=== PATIENT | female | born 1985 | race Caucasian/White ===

== ENCOUNTER 2018-07-14 22:29 | Emergency (ER) | payer MEDICAID, SELFPAY ==
[2018-07-14 22:36] VITALS: BP 140/68; PULSE 74; RESP 18; TEMP 36.4; O2SAT 99
[2018-07-14] MEDS: Acetaminophen 500 MG TAB 1000 MG PO (22:54)
[2018-07-14] MEDS: Ketorolac 30 MG/ML VIAL IM (22:54)
[2018-07-14] MEDS: Lidocaine 5% Patch 1 PATCH TP (22:55)
--- NOTE | 2018-07-14 23:15 | DI.RAD_ITS ---
SYMPTOM/DIAGNOSIS: LT SACRUM PAIN, S/P FALL BILATERAL HIPS AND PELVIS: Five views were obtained. There is partial sacralization of the lowest lumbar vertebra. SI joints appear fairly well maintained. No evidence of acute fracture involving the hips or pelvis.
--- NOTE | 2018-07-14 23:46 | DI.VRAD_ITS ---
EXAM: XR Left Hip With Pelvis When Performed, 2 or 3 Views CLINICAL HISTORY: 32 years old, female; Injury or trauma; Fall; Initial encounter; Blunt trauma (contusions or hematomas); Bilateral; Hip; Injury date: 07/12/18; Injury details: Fall with sacrum and posterior bilat hip pain TECHNIQUE: Two or three views of the left hip, with pelvis when performed. COMPARISON: US PELVIS TRANSVAG 06/19/2015 9:26 PM FINDINGS: Bones/joints: No focal pathology. No acute fracture. No dislocation. Soft tissues: Unremarkable. IMPRESSION: No acute bony pathology. Dictated and Authenticated by: Lexy Harris MD. Ordering:JUANA DOMINGUEZ MD
--- NOTE | 2018-07-15 00:03 | ED.GENADUL_ITS ---
Discharge Plan Disposition Patient Disposition: HOME Condition: Good Discharge Details Chief Complaint: Nk/Back Pain Clinical Impression: Coccyx contusion, Contusion Primary Care Provider: Deanna Jones ED Provider: Javon Stringer Home Meds and New Rx's Prescriptions: New acetaminophen [Mapap Extra Strength] 500 MG tablet 1,000 mg PO Q6H 5 Days Qty: 60 RF: 0 lidocaine [Lidoderm] 1 PATCH patch 1 ea Topical Q24H Qty: 4 RF: 0 ibuprofen [Motrin IB] 200 MG tablet 800 mg PO Q6H 5 Days Qty: 80 RF: 0 No Action ibuprofen 800 MG tablet 800 mg PO PRN RF: 0 albuterol sulfate 8.5 GM HFA aerosol inhaler 1 - 2 puff Inhalation Q4H PRN RF: 0 fluticasone [Flovent HFA] 12 GM HFA aerosol inhaler 12 gm Inhalation PRN RF: 0 budesonide-formoterol [Symbicort] 10.2 GM HFA aerosol inhaler 2 puff Inhalation BID RF: 0 levothyroxine 175 MCG tablet 175 mcg PO DAILY Qty: 90 RF: 1 quetiapine [Seroquel] 100 MG tablet 100 mg PO DIRECTED RF: 0 citalopram [Celexa] 20 MG tablet 40 mg PO DAILY RF: 0 fluticasone 16 GM spray,suspension 2 spry NS DAILY Qty: 1 RF: 0 ibuprofen 400 MG tablet 400 mg PO Q6H Qty: 15 RF: 0 omeprazole magnesium [Prilosec OTC] 20 mg Tablet,Delayed Release (Dr/Ec) RF: 0 Discharge Instructions Instructions: Contusion in Adults (ED) Additional Instructions: Please take medication as directed. Please use ice as often as possible on your buttock. If you notice any worsening of your symptoms, or any new symptoms such as vomiting, diarrhea, fever, chills, shortness of breath, chest pain, numbness in your groin, or any inability to control your bowels or bladder ,, weakness, or fainting , please return immediately to the emergency department for reevaluation. Please follow up with your primary care provider as soon as possible for reassessment and reevaluation. As always, it was a pleasure participating in your medical care today. Referrals: Deanna Jones [Primary Care Provider] - Medical Decision Making This is a pleasant 32-year-old female who presents for pain on her buttock after falling on a flight of stairs hitting her buttock. She did not hit her head, lose consciousness, or of any other pain or trauma. She has no pain on her entire exam except for over her left buttock. There is a notable bruise on that area. She shows no midline tenderness of her lumbar or thoracic spine. No saddle anesthesia, no historical component of bowel or bladder incontinence. test was negative, x-ray demonstrates no acute bony pathology. She has had notable improvement with NSAIDs, and the Lidoderm patch. With no red flags on physical exam, history, or signs of fracture, I feel that she can be safely discharged home. We discussed red flags which to return. Diagnosis bruise coccyx and hip. I have extensively reviewed the treatment plan and discharge instructions with the patient. I have addressed all patient concerns at this time. The patient was made aware of what symptoms to monitor for that would warrant a return to the emergency department. Discussed the plan with the patient, they demonstrate verbal understanding and agreement with our assessment and plan at this time. HPI General Date/Time Provider Initiated Documentation: 07/14/18 22:39 . HPI Narrative: This is a 32-year-old female with a past medical history of C-sections, and asthma who presents for buttock pain. She states that 24-48 hours ago she was walking down a flight of stairs and she slipped and landed on her buttock. She developed a bruise over her left hip and buttock, waist and has had notable pain whenever she sits since then. It is worsened with movement and sitting. It is relieved by nothing. She did take some ibuprofen and states that it feels slightly better with this she denies any associated numbness, tingling, weakness, bowel or bladder incontinence, vomiting, or diarrhea. She is not on any blood thinners. She denies any other complaints at this time. She denies any pertinent family history, IV or illicit drug use. Related Data Home Medications Medication Instructions Recorded Confirmed albuterol sulfate 1 - 2 puff INHALATION Q4H PRN 02/05/14 04/13/18 inhaler fluticasone [Flovent HFA] 12 gm INHALATION PRN inhaler 02/05/14 07/14/18 ibuprofen 800 mg PO PRN 02/05/14 07/14/18 quetiapine [Seroquel] 100 mg PO DIRECTED 12/22/14 07/14/18 citalopram [Celexa] 40 mg PO DAILY 04/05/15 07/14/18 budesonide-formoterol [Symbicort] 2 puff INHALATION BID inhaler 08/05/15 levothyroxine 175 mcg PO DAILY #90 tab-cap 12/16/17 07/14/18 fluticasone 2 spry NS DAILY #1 btl 04/13/18 07/14/18 ibuprofen 400 mg PO Q6H #15 tablet 04/13/18 07/14/18 acetaminophen [Mapap Extra 1,000 mg PO Q6H 5 Days #60 tab 07/14/18 Strength] ibuprofen [Motrin Ib] 800 mg PO Q6H 5 Days #80 tab 07/14/18 lidocaine [Lidoderm] 1 ea TOPICAL Q24H #4 patch 07/14/18 omeprazole magnesium [Prilosec OTC] 07/14/18 Previous Rx's Medication Instructions Recorded levothyroxine 175 mcg PO DAILY #90 tab-cap 12/16/17 fluticasone 2 spry NS DAILY #1 btl 04/13/18 ibuprofen 400 mg PO Q6H #15 tablet 04/13/18 acetaminophen [Mapap Extra 1,000 mg PO Q6H 5 Days #60 tab 07/14/18 Strength] ibuprofen [Motrin Ib] 800 mg PO Q6H 5 Days #80 tab 07/14/18 lidocaine [Lidoderm] 1 ea TOPICAL Q24H #4 patch 07/14/18 Allergies Allergy/AdvReac Type Severity Reaction Status Date / Time bupropion HCl Allergy Mild Skin Rash Unverified 07/14/18 22:43 [From Wellbutrin] gabapentin Allergy Skin Rash Unverified 07/14/18 22:43 Animal Dander Allergy Intermediate Runny Uncoded 07/14/18 22:43 nose, itchy eyes H1N1 vaccine Allergy Intermediate Hives Uncoded 07/14/18 22:43 General Stated Complaint: Nk/Back Pain AIDAN: 4 Review of Systems Review of Systems All systems reviewed & are unremarkable except as noted in HPI and below PFSH Family History Mother No problems noted. Father No problems noted. Brother No problems noted. Medical History Asthma Depression Hypothyroid Obesity, Class III, BMI 40-49.9 (morbid obesity) Smoker Social History Smoking/Tobacco Use Status: Current every day alcohol intake: current Surgical History section Exam Narrative Exam Narrative: 1.Const: Well-nourished, Well-developed, appearing stated age 2.Eyes: PERRL, no conjunctival injection, and symmetrical lids. 3.ENT: Atraumatic external nose and ears. Moist MM. Neck: Symmetric, trachea midline, No thyromegaly. 4.CVS: +S1/S2, No murmurs or gallops. Peripheral pulses 2+ and equal in all extremities. Brisk capillary refill in all extremities. 5.RESP: Unlabored respiratory effort. Clear to auscultation bilaterally. No wheezes rales or rhonchi 6.GI: Soft, Nontender/Nondistended, No hepatosplenomegaly. No guarding or rebound. 7.MSK: Normocephalic/Atraumatic, Extremities w/o deformity No cyanosis or clubbing, Normal movement of all extremities. No midline tenderness to palpation over the CTLS spine. Normal ROM in flexion, extension, side bend, and rotation. Patient has +5 out of 5 strength in the lower extremities in dorsiflexion and plantarflexion, knee flexion and extension, hip flexion and extension. There is +2 over 2 dorsalis pedis pulses bilaterally. There is normal sensation to the skin with light touch at the foot, knee, and hip. Normal saddle sensation. Good sensation over the deep sural nerve area bilaterally. Rectal exam demonstrated normal rectal tone. Reflexes are +2 over 4 in the patellar reflex bilaterally. +5 out of 5 strength in the medial, ulnar , radial nerve distribution bilaterally in the hands as well as intact light touch sensation to these dermatomes on the hands. Patient does have a notable 6 inch bruise on her left buttock. Tenderness over the proximal component of the sacrum, mild tenderness over the left hip. She is able to ambulate well. Neither leg is shortened or rotated. No pain with movement of the lower extremities. 8.Skin: Warm, Dry. No rashes or lesions. 9.Neuro: manager global communications II-XII grossly intact. Sensation grossly intact, no focal neurologic deficits. 10.Psych: (AAO) x3. Appropriate mood and affect Course Vital Signs Temperature 36.4 C L 07/14/18 22:36 Pulse 74 07/14/18 22:36 Respiratory Rate 18 07/14/18 22:36 Blood Pressure 140/68 07/14/18 22:36 Pulse Oximetry 99 07/14/18 22:36 Temperature 36.4 C L 07/14/18 22:36 Pulse 74 07/14/18 22:36 Respiratory Rate 18 07/14/18 22:36 Respiratory Effort 07/14/18 22:40 Blood Pressure 140/68 07/14/18 22:36 Pulse Oximetry 99 07/14/18 22:36 Oxygen Delivery Method Room Air 07/14/18 22:36 Oxygen Flow Rate 0 07/14/18 22:36 Pain Level 10 07/14/18 22:36 Lab/Test Results Lab/Test Results: POC- Test(urine) Negative
== END 2018-07-14 23:58 | disposition home or self-care (01) ==
PROVIDERS: Emergency Provider Student in an Organized Health Care Education/Training Program; PCP Internal Medicine
DX: S30.0XXA Contusion of lower back and pelvis, initial encounter (principal); W10.8XXA Fall (on) (from) other stairs and steps, initial encounter
CPT/HCPCS: 73521; 96372; 99284; J1885

== ENCOUNTER 2018-08-12 09:16 | Emergency (ER) | payer MEDICAID, SELFPAY ==
[2018-08-12 09:23] VITALS: BP 129/77; PULSE 56; RESP 16; TEMP 36.6; O2SAT 97
--- NOTE | 2018-08-12 09:28 | NUR.NOTE ---
CUTTING TABLE OPERATOR FIRST Is at the bedside assessing patient.
--- NOTE | 2018-08-12 09:36 | DI.CT_ITS ---
SYMPTOM/DIAGNOSIS: SWELLING AND PAIN TO LEFT SIDE OF NECK CT SCAN NECK: CT scan of the neck was performed following the uneventful administration of intravenous contrast material. There is patient motion artifact which does limit the examination. The visualized cranial structures are grossly unremarkable. There are enlarged palatine tonsils left greater than right. No fluid collections are seen to suggest abscess. The remaining visualized portions of the oral pharynx, hypopharynx, larynx and trachea are unremarkable. The retropharyngeal and soft tissues have a normal appearance. The parotid and submandibular glands are unremarkable. The thyroid gland is grossly unremarkable. There are mildly enlarged lymph nodes in the neck. These are likely reactive. The soft tissues show no focal fluid collection or suspicious soft tissue masses. The lung apices appear clear. There is straightening of the normal cervical lordosis which may be due to patient positioning or muscle spasm. The visualized paranasal sinuses are clear. The mastoid air cells appear predominantly opacified. The nasal septum mildly deviates to the right. The ostiomeatal complexes are unremarkable. IMPRESSION: Prominent palatine tonsils and adenoids. Tonsillitis cannot be excluded. No focal fluid collection is seen to suggest an abscess. 2. Mildly enlarged lymph nodes in the neck. 3. No significant airway narrowing or retropharyngeal abscess is seen.
--- NOTE | 2018-08-12 09:37 | DI.RAD_ITS ---
SYMPTOM/DIAGNOSIS: COUGH CHEST X-RAY: Frontal and lateral views. Comparison 01/02/17 The heart is normal in size. The lungs are clear. The mediastinal structures and pleura appear intact. CONCLUSION: Normal chest.
--- NOTE | 2018-08-12 09:39 | W.ED.GENAD ---
Discharge Plan Disposition Patient Disposition: HOME Condition: Good Discharge Details Chief Complaint: GenMedical Clinical Impression: Pharyngitis Primary Care Provider: Deanna Jones ED Provider: Rogelio Whatley Frederick Meds and New Rx's Prescriptions: New clindamycin HCl 300 mg capsule 300 mg PO QID Qty: 40 RF: 0 No Action ibuprofen 800 MG tablet 800 mg PO PRN RF: 0 albuterol sulfate 8.5 GM HFA aerosol inhaler 1 - 2 puff Inhalation Q4H PRN RF: 0 fluticasone [Flovent HFA] 12 GM HFA aerosol inhaler 12 gm Inhalation PRN RF: 0 budesonide-formoterol [Symbicort] 10.2 GM HFA aerosol inhaler 2 puff Inhalation BID RF: 0 levothyroxine 175 MCG tablet 175 mcg PO DAILY Qty: 90 RF: 1 quetiapine [Seroquel] 100 MG tablet 100 mg PO DIRECTED RF: 0 citalopram [Celexa] 20 MG tablet 40 mg PO DAILY RF: 0 fluticasone 16 GM spray,suspension 2 spry NS DAILY Qty: 1 RF: 0 ibuprofen 400 MG tablet 400 mg PO Q6H Qty: 15 RF: 0 omeprazole magnesium [Prilosec OTC] 20 mg Tablet,Delayed Release (Dr/Ec) RF: 0 lidocaine [Lidoderm] 1 PATCH patch 1 ea Topical Q24H Qty: 4 RF: 0 Discharge Instructions Instructions: Pharyngitis (ED) Stand Alone Forms: Work Release Referrals: [facility] Emergency Dept. [Outside] - Return if symptoms worsen Medical Decision Making Symptoms and exam consistent with abscess. Will CT the neck with contrast and evaluate hematology and chemistry. Also swab for strep. Apprised of CT results and negative lab studies. Advised to take antibiotic as prescribed. Return to ED if symptoms worsen otherwise with pcp as previously planned. Imaging Data Radiologic Study: Imaging: X-Ray (No acute pathology) and CT Scan (pending) My impression: X-ray: No acute pathology. Radiologist's impression: V-Rad: No acute findings on chest x-ray. V-rad CT: 1: Enlarged cervical/neck lymph nodes, left greater than right. 2: Prominent palatine tonsils and adenoids for age. 3. No drainable soft tissue abscess. 4. No significant airway compromise. 5. Nonspecific cervical spine reversal. Lab Data Lab results reviewed: Yes I reviewed the patient's lab results. Lab results narrative: All values reviewed. No acute changes all within acceptable limits. HPI General Date/Time Provider Initiated Documentation: 08/12/18 09:26. Limitations to Documentation: no limitations. Information obtained by: patient. History of Present Illness 33 year old F presents to the emergency department with the chief complaint of Pharyngitis, HPI Narrative: 33 y/o female here with c/o left side neck swelling and pain. Four days ago she noticed swelling to the left side of her neck with left ear pain. It is painful to palpate. She has a cough but tells me she is a smoker and always has a cough. Also tell me it is painful to swallow and worse at night. She is able to swallow without complications. Denies any other symptoms or illness. Related Data Home Medications Medication Instructions Recorded Confirmed albuterol sulfate 1 - 2 puff INHALATION Q4H PRN 02/05/14 08/12/18 inhaler fluticasone [Flovent HFA] 12 gm INHALATION PRN inhaler 02/05/14 08/12/18 ibuprofen 800 mg PO PRN 02/05/14 08/12/18 quetiapine [Seroquel] 100 mg PO DIRECTED 12/22/14 08/12/18 citalopram [Celexa] 40 mg PO DAILY 04/05/15 08/12/18 budesonide-formoterol [Symbicort] 2 puff INHALATION BID inhaler 08/05/15 08/12/18 levothyroxine 175 mcg PO DAILY #90 tab-cap 12/16/17 08/12/18 fluticasone 2 spry NS DAILY #1 btl 04/13/18 08/12/18 ibuprofen 400 mg PO Q6H #15 tablet 04/13/18 08/12/18 lidocaine [Lidoderm] 1 ea TOPICAL Q24H #4 patch 07/14/18 08/12/18 omeprazole magnesium [Prilosec OTC] 07/14/18 clindamycin HCl 300 mg PO QID #40 cap 08/12/18 Previous Rx's Medication Instructions Recorded levothyroxine 175 mcg PO DAILY #90 tab-cap 12/16/17 fluticasone 2 spry NS DAILY #1 btl 04/13/18 ibuprofen 400 mg PO Q6H #15 tablet 04/13/18 lidocaine [Lidoderm] 1 ea TOPICAL Q24H #4 patch 07/14/18 clindamycin HCl 300 mg PO QID #40 cap 08/12/18 Allergies Allergy/AdvReac Type Severity Reaction Status Date / Time bupropion HCl Allergy Mild Skin Rash Unverified 08/12/18 09:27 [From Wellbutrin] gabapentin Allergy Skin Rash Unverified 08/12/18 09:27 Animal Dander Allergy Intermediate Runny Uncoded 08/12/18 09:27 nose, itchy eyes H1N1 vaccine Allergy Intermediate Hives Uncoded 08/12/18 09:27 General Stated Complaint: GenMedical AIDAN: 3 Review of Systems Constitutional Reports as per [facility] Eyes Reports system reviewed and no additional complaints, except as docu ENT Denies dental pain, Reports otalgia, Denies hoarseness, Denies nasal congestion, Denies nasal discharge, Denies sinus pain, Denies sinus pressure and Reports sore throat Cardiovascular Reports system reviewed and no additional complaints, except as docu Respiratory Reports cough Gastrointestinal Reports system reviewed and no additional complaints, except as docu Genitourinary Reports system reviewed and no additional complaints, except as docu Musculoskeletal Reports system reviewed and no additional complaints, except as docu Integumentary/Breasts Reports system reviewed and no additional complaints, except as docu Neurologic Reports system reviewed and no additional complaints, except as docu PFSH Family History Mother No problems noted. Father No problems noted. Brother No problems noted. Medical History Asthma Depression Hypothyroid Obesity, Class III, BMI 40-49.9 (morbid obesity) Smoker Social History Smoking/Tobacco Use Status: Current every day alcohol intake: current Surgical History section Exam Const General: cooperative, comfortable and no acute distress Nutritional Appearance: obese Orientation: alert, awake and oriented x3 HENMT Head: normal to inspection and atraumatic Ears: hearing grossly normal bilaterally, external ears normal, TM normal on the right and TM abnormal (left) wth effusion and with loss of landmarks; not erythematous and not perforated General nose exam: external nose normal and nares normal Face and sinus: normal facial exam Mouth: oral mucosae normal and moist mucous membranes Mouth/tongue images: 1. Exudates without redness R>L. No abscess visualized. 2. Exudates without redness R>L. No abscess visualized. Teeth and gingiva: dentition normal Eyes General: appearance normal, both eyes and all related structures Neck Neck: full ROM, no lymphadenopathy, supple, anterior neck swelling (left), tender (left side), no tracheal deviation and submandibular swelling (left) Resp Effort & Inspection: normal respiratory effort Auscultation: bronchovesicular breath sounds on the left Cardio Jugular venous pressure: no JVD Rate: regular rate Rhythm: regular rhythm Heart Sounds: S1 normal and S2 normal Skin General skin exam: no rashes or lesions noted Neuro General: alert, awake and oriented x3 Cognition: normal cognition Speech: speech normal Gait: normal gait Extrem General: normal to inspection and full ROM Psych Appearance: grossly normal Speech and Movement: speech and movement normal Affect: normal affect Attitude: cooperative Thought Process: normal Thought Content: normal Insight: insight good Judgment: judgment good Course Vital Signs Temperature 36.6 C 08/12/18 09:23 Pulse 56 L 08/12/18 09:23 Respiratory Rate 16 08/12/18 09:23 Blood Pressure 129/77 08/12/18 09:23 Pulse Oximetry 97 08/12/18 09:23 Temperature 36.6 C 08/12/18 09:23 Temperature Source Temporal Artery Scan 08/12/18 09:23 Pulse 56 L 08/12/18 09:23 Respiratory Rate 16 08/12/18 09:23 Respiratory Effort 08/12/18 09:29 Respiratory Depth Normal 08/12/18 09:29 Respiratory Pattern Normal 08/12/18 09:29 Blood Pressure 129/77 08/12/18 09:23 Blood Pressure Position Sitting 08/12/18 09:23 Pulse Oximetry 97 08/12/18 09:23 Oxygen Delivery Method Room Air 08/12/18 09:23 Oxygen Flow Rate 0 08/12/18 09:23 Pain Level 0 08/12/18 09:23
--- NOTE | 2018-08-12 09:50 | ED.GENADUL_ITS ---
Discharge Plan Disposition Patient Disposition: HOME Condition: Good Discharge Details Chief Complaint: GenMedical Clinical Impression: Pharyngitis Primary Care Provider: Deanna Jones ED Provider: Rogelio Whatley [place] Meds and New Rx's Prescriptions: New clindamycin HCl 300 mg capsule 300 mg PO QID Qty: 40 RF: 0 No Action ibuprofen 800 MG tablet 800 mg PO PRN RF: 0 albuterol sulfate 8.5 GM HFA aerosol inhaler 1 - 2 puff Inhalation Q4H PRN RF: 0 fluticasone [Flovent HFA] 12 GM HFA aerosol inhaler 12 gm Inhalation PRN RF: 0 budesonide-formoterol [Symbicort] 10.2 GM HFA aerosol inhaler 2 puff Inhalation BID RF: 0 levothyroxine 175 MCG tablet 175 mcg PO DAILY Qty: 90 RF: 1 quetiapine [Seroquel] 100 MG tablet 100 mg PO DIRECTED RF: 0 citalopram [Celexa] 20 MG tablet 40 mg PO DAILY RF: 0 fluticasone 16 GM spray,suspension 2 spry NS DAILY Qty: 1 RF: 0 ibuprofen 400 MG tablet 400 mg PO Q6H Qty: 15 RF: 0 omeprazole magnesium [Prilosec OTC] 20 mg Tablet,Delayed Release (Dr/Ec) RF: 0 lidocaine [Lidoderm] 1 PATCH patch 1 ea Topical Q24H Qty: 4 RF: 0 Discharge Instructions Instructions: Pharyngitis (ED) Stand Alone Forms: Work Release Referrals: [facility] Emergency Dept. [Outside] - Return if symptoms worsen Medical Decision Making Symptoms and exam consistent with abscess. Will CT the neck with contrast and evaluate hematology and chemistry. Also swab for strep. Apprised of CT results and negative lab studies. Advised to take antibiotic as prescribed. Return to ED if symptoms worsen otherwise with pcp as previously planned. Imaging Data Radiologic Study: Imaging: X-Ray (No acute pathology) and CT Scan (pending) My impression: X-ray: No acute pathology. Radiologist's impression: V-Rad: No acute findings on chest x-ray. V-rad CT: 1: Enlarged cervical/neck lymph nodes, left greater than right. 2: Prominent palatine tonsils and adenoids for age. 3. No drainable soft tissue abscess. 4. No significant airway compromise. 5. Nonspecific cervical spine reversal. Lab Data Lab results reviewed: Yes I reviewed the patient's lab results. Lab results narrative: All values reviewed. No acute changes all within acceptable limits. HPI General Date/Time Provider Initiated Documentation: 08/12/18 09:26 . Limitations to Documentation: no limitations . Information obtained by: patient . History of Present Illness 33 year old F presents to the emergency department with the chief complaint of Pharyngitis, HPI Narrative: 33 y/o female here with c/o left side neck swelling and pain. Four days ago she noticed swelling to the left side of her neck with left ear pain. It is painful to palpate. She has a cough but tells me she is a smoker and always has a cough. Also tell me it is painful to swallow and worse at night. She is able to swallow without complications. Denies any other symptoms or illness. Related Data Home Medications Medication Instructions Recorded Confirmed albuterol sulfate 1 - 2 puff INHALATION Q4H PRN 02/05/14 08/12/18 inhaler fluticasone [Flovent HFA] 12 gm INHALATION PRN inhaler 02/05/14 08/12/18 ibuprofen 800 mg PO PRN 02/05/14 08/12/18 quetiapine [Seroquel] 100 mg PO DIRECTED 12/22/14 08/12/18 citalopram [Celexa] 40 mg PO DAILY 04/05/15 08/12/18 budesonide-formoterol [Symbicort] 2 puff INHALATION BID inhaler 08/05/15 levothyroxine 175 mcg PO DAILY #90 tab-cap 12/16/17 08/12/18 fluticasone 2 spry NS DAILY #1 btl 04/13/18 08/12/18 ibuprofen 400 mg PO Q6H #15 tablet 04/13/18 08/12/18 lidocaine [Lidoderm] 1 ea TOPICAL Q24H #4 patch 07/14/18 08/12/18 omeprazole magnesium [Prilosec OTC] 07/14/18 clindamycin HCl 300 mg PO QID #40 cap 08/12/18 Previous Rx's Medication Instructions Recorded levothyroxine 175 mcg PO DAILY #90 tab-cap 12/16/17 fluticasone 2 spry NS DAILY #1 btl 04/13/18 ibuprofen 400 mg PO Q6H #15 tablet 04/13/18 lidocaine [Lidoderm] 1 ea TOPICAL Q24H #4 patch 07/14/18 clindamycin HCl 300 mg PO QID #40 cap 08/12/18 Allergies Allergy/AdvReac Type Severity Reaction Status Date / Time bupropion HCl Allergy Mild Skin Rash Unverified 08/12/18 09:27 [From Wellbutrin] gabapentin Allergy Skin Rash Unverified 08/12/18 09:27 Animal Dander Allergy Intermediate Runny Uncoded 08/12/18 09:27 nose, itchy eyes H1N1 vaccine Allergy Intermediate Hives Uncoded 08/12/18 09:27 General Stated Complaint: GenMedical AIDAN: 3 Review of Systems Constitutional Reports as per [facility] Eyes Reports system reviewed and no additional complaints, except as docu ENT Denies dental pain, Reports otalgia, Denies hoarseness, Denies nasal congestion , Denies nasal discharge, Denies sinus pain, Denies sinus pressure and Reports sore throat Cardiovascular Reports system reviewed and no additional complaints, except as docu Respiratory Reports cough Gastrointestinal Reports system reviewed and no additional complaints, except as docu Genitourinary Reports system reviewed and no additional complaints, except as docu Musculoskeletal Reports system reviewed and no additional complaints, except as docu Integumentary/Breasts Reports system reviewed and no additional complaints, except as docu Neurologic Reports system reviewed and no additional complaints, except as docu PFSH Family History Mother No problems noted. Father No problems noted. Brother No problems noted. Medical History Asthma Depression Hypothyroid Obesity, Class III, BMI 40-49.9 (morbid obesity) Smoker Social History Smoking/Tobacco Use Status: Current every day alcohol intake: current Surgical History section Exam Const General: cooperative, comfortable and no acute distress Nutritional Appearance: obese Orientation: alert, awake and oriented x3 HENMT Head: normal to inspection and atraumatic Ears: hearing grossly normal bilaterally, external ears normal, TM normal on the right and TM abnormal (left) wth effusion and with loss of landmarks; not erythematous and not perforated General nose exam: external nose normal and nares normal Face and sinus: normal facial exam Mouth: oral mucosae normal and moist mucous membranes Mouth/tongue images: 2 1. Exudates without redness R>L. No abscess visualized. 2. Exudates without redness R>L. No abscess visualized. Teeth and gingiva: dentition normal Eyes General: appearance normal, both eyes and all related structures Neck Neck: full ROM, no lymphadenopathy, supple, anterior neck swelling (left), tender (left side), no tracheal deviation and submandibular swelling (left) Resp Effort & Inspection: normal respiratory effort Auscultation: bronchovesicular breath sounds on the left Cardio Jugular venous pressure: no JVD Rate: regular rate Rhythm: regular rhythm Heart Sounds: S1 normal and S2 normal Skin General skin exam: no rashes or lesions noted Neuro General: alert, awake and oriented x3 Cognition: normal cognition Speech: speech normal Gait: normal gait Extrem General: normal to inspection and full ROM Psych Appearance: grossly normal Speech and Movement: speech and movement normal Affect: normal affect Attitude: cooperative Thought Process: normal Thought Content: normal Insight: insight good Judgment: judgment good Course Vital Signs Temperature 36.6 C 08/12/18 09:23 Pulse 56 L 08/12/18 09:23 Respiratory Rate 16 08/12/18 09:23 Blood Pressure 129/77 08/12/18 09:23 Pulse Oximetry 97 08/12/18 09:23 Temperature 36.6 C 08/12/18 09:23 Temperature Source Temporal Artery Scan 08/12/18 09:23 Pulse 56 L 08/12/18 09:23 Respiratory Rate 16 08/12/18 09:23 Respiratory Effort 08/12/18 09:29 Respiratory Depth Normal 08/12/18 09:29 Respiratory Pattern Normal 08/12/18 09:29 Blood Pressure 129/77 08/12/18 09:23 Blood Pressure Position Sitting 08/12/18 09:23 Pulse Oximetry 97 08/12/18 09:23 Oxygen Delivery Method Room Air 08/12/18 09:23 Oxygen Flow Rate 0 08/12/18 09:23 Pain Level 0 08/12/18 09:23
[2018-08-12 09:57] LABS: Abs Immature Grans 0.02 k/cumm (0.0-0.09); Absolute Basophil Count 0.02 k/cumm (0.0-0.2); Absolute Eosinophil Count 0.11 k/cumm (0.0-0.7); Absolute Lymphocyte Count 1.93 k/cumm (1.2-3.4); Absolute Monocyte Count 0.56 k/cumm (0.11-0.7); Absolute Neutrophil Count 4.64 k/cumm (1.2-6.7); Basophils % 0.3; Eosinophils % 1.5; HCT 35.9 % (36.0-46.0); HGB 11.5 g/dL (12.0-15.5); Immature Grans % 0.3; Lymphocytes % 26.5; Mean Corpuscular Hemoglobin 26.6 pg (27.0-33.0); Mean Corpuscular Volume 82.9 fL (80-95); Mean Platelet Volume 12.1 fL (8.0-11.0); Monocytes % 7.7; Neutrophils % 63.7; Platelet Count 195 x1000/uL (130-400); RBC 4.33 m/cumm (4.00-5.20); RBC Distribution Width 16.5 % (11.7-14.6); White Blood Cell Count 7.28 k/cumm (4.4-10.8)
[2018-08-12 10:22] LABS: ALT 21 U/L (12-78); AST 20 U/L (15-37); Alkaline Phosphatase 66 U/L (46-116); Anion Gap 10.1 mmol/L (3-11); BUN 14 mg/dL (7-18); Bilirubin, Total 0.1 mg/dL (0.2-1.0); CO2 24.9 mmol/L (21.0-32.0); CREATININE 0.87 mg/dL (0.55-1.02); Calcium 8.4 mg/dL (8.5-10.1); Chloride 104 mmol/L (98-107); Glucose 89 mg/dL (70-100); Potassium 4.1 mmol/L (3.5-5.1); Sodium 139 mmol/L (136-145); Total Protein 6.7 g/dL (6.4-8.2)
[2018-08-12] MEDS: Omnipaque 350 MG/ML 100 ML BTL IJ (10:45)
--- NOTE | 2018-08-12 11:13 | DI.VRAD_ITS ---
EXAM: XR Chest, 2 Views EXAM DATE/TIME: 08/12/2018 10:27 AM CLINICAL HISTORY: 33 years old, female; Pain; Other: Cough TECHNIQUE: XR of the chest, 2 views. COMPARISON: CR CHEST 2 VIEWS PA,LAT 01/02/2017 7:23 PM FINDINGS: Lungs: Unremarkable. No consolidation. Pleural space: Unremarkable. No pleural effusion. No pneumothorax. Heart/Mediastinum: Unremarkable. No cardiomegaly. Bones/joints: Unremarkable. IMPRESSION: No acute findings. Dictated and Authenticated by: Sejal Michael MD. Ordering:GISELL PITT MD
--- NOTE | 2018-08-12 12:23 | DI.VRAD_ITS ---
EXAM: CT Neck With Intravenous Contrast EXAM DATE/TIME: 08/12/2018 9:37 AM CLINICAL HISTORY: 33 years old, female; Pain; Other: Swelling pain lt side of neck TECHNIQUE: Axial computed tomography images of the neck with intravenous contrast. Coronal and sagittal reformatted images were created and reviewed. COMPARISON: No relevant prior studies available. FINDINGS: Brain: Normal included postcontrast brain. Orbits: Remote cataract surgical findings. Sinuses: No air-fluid levels in the sinuses. Nasopharynx: Prominent nasopharynx for age. Partial paradoxical curvature of the middle turbinates. Oropharynx: Oral metallic body piercing artifacts. Bilateral palatine tonsillar enlargement, left slightly greater than right. No significant airway compromise. Hypopharynx: Normal hypopharynx. Larynx: Normal epiglottis/larynx. Normal subglottic neck. Trachea: Normal. Retropharyngeal space: Normal retropharynx. Submandibular/Parotid glands: Normal bilateral parotid glands. Thyroid: Normal thyroid. Bones/joints: Deviated septum and bony spurring. Nonspecific cervical straightening. No cervical spine fracture. Mastoid air cells: Poor aeration inferior mastoid air cells. Soft tissues: See above Vasculature: Normal for noncontrast exam. Lymph nodes: Enlarged cervical/neck lymph nodes, left greater than right. Lung apices: Clear lung apices. Esophagus: Normal esophagus. Other findings: Partially empty sella. IMPRESSION: 1. Enlarged cervical/neck lymph nodes, left greater than right. 2. Prominent palatine tonsils and adenoids for age. 3. No drainable soft tissue abscess. 4. No significant airway compromise. 5. Nonspecific cervical spine reversal. Dictated and Authenticated by: Anton Mercado MD. Ordering:GISELL PITT MD
[2018-08-12 12:30] VITALS: BP 124/59; PULSE 58; O2SAT 98
== END 2018-08-12 13:05 | disposition home or self-care (01) ==
LOC: ER 13:04
PROVIDERS: Emergency Provider Nurse Practitioner Family; PCP Internal Medicine
DX: J02.9 Acute pharyngitis, unspecified (principal); H92.02 Otalgia, left ear; R59.0 Localized enlarged lymph nodes; R05 Cough; F17.210 Nicotine dependence, cigarettes, uncomplicated
CPT/HCPCS: 36415; 70491; 80053; 81025; 87880; 99285; 71046; 85025; 87081; J3490

== ENCOUNTER 2019-01-26 21:13 | Emergency (ER) | payer MEDICAID, SELFPAY ==
[2019-01-26 21:19] VITALS: BP 110/72; PULSE 81; RESP 16; TEMP 37.1; O2SAT 99
--- NOTE | 2019-01-26 21:19 | ED.GENADUL_ITS ---
Discharge Plan Disposition Patient Disposition: HOME Condition: Stable Discharge Details Chief Complaint: EarProblem Clinical Impression: Acute otitis media Primary Care Provider: Deanna Jones ED Provider: Rogelio Winston Home Meds and New Rx's Prescriptions: New amoxicillin 500 mg tablet 500 mg PO TID Qty: 30 RF: 0 No Action trazodone 50 mg tablet 75 mg PO QHS RF: 0 ibuprofen 800 MG tablet 800 mg PO PRN RF: 0 albuterol sulfate 8.5 GM HFA aerosol inhaler 1 - 2 puff Inhalation Q4H PRN RF: 0 Flovent HFA 12 GM HFA aerosol inhaler 12 gm Inhalation PRN RF: 0 Symbicort 10.2 GM HFA aerosol inhaler 2 puff Inhalation BID RF: 0 levothyroxine 175 MCG tablet 175 mcg PO DAILY Qty: 90 RF: 1 citalopram [Celexa] 20 MG tablet 40 mg PO DAILY RF: 0 fluticasone propionate 16 GM spray,suspension 2 spry NS DAILY Qty: 1 RF: 0 ibuprofen 400 MG tablet 400 mg PO Q6H Qty: 15 RF: 0 Prilosec OTC 20 mg Tablet,Delayed Release (Dr/Ec) RF: 0 lidocaine [Lidoderm] 1 PATCH patch 1 ea Topical Q24H Qty: 4 RF: 0 clindamycin HCl 300 mg capsule 300 mg PO QID Qty: 40 RF: 0 Discharge Instructions Instructions: Otitis Media (ED) Medical Decision Making 33 yo female comes in with right ear pain since yesterday and today started to have left ear pain, denies fevers or other symptoms. Normal external mastoid exam bilaterally, normal external auditory canals, both tm's red and bulging. Will tx with abx, advised f/u with pcp in a week if not better and return precautions given Differential Diagnosis otitis externa, aom HPI General Mode of arrival: ambulatory . Date/Time Provider Initiated Documentation: 01/26/19 21:16 . Limitations to Documentation: no limitations . Information obtained by: patient . History of Present Illness 33 year old F presents to the emergency department with the chief complaint of right ear pain, described as moderate, Quality is described as aching, and is localized to the head. Patient reports no radiation. Patient started experiencing this day(s) (1) No relieving factors improve symptom(s), No exacerbating factors reported . Patient notes no other symptoms.. Patient did receive the following treatments prior to arrival, none Related Data Home Medications Medication Instructions Recorded Confirmed Flovent HFA 12 gm INHALATION PRN inhaler 02/05/14 11/23/18 albuterol sulfate 1 - 2 puff INHALATION Q4H PRN 02/05/14 11/23/18 inhaler ibuprofen 800 mg PO PRN 02/05/14 11/23/18 citalopram [Celexa] 40 mg PO DAILY 04/05/15 11/23/18 Symbicort 2 puff INHALATION BID inhaler 08/05/15 11/23/18 levothyroxine 175 mcg PO DAILY #90 tab-cap 12/16/17 11/23/18 fluticasone propionate 2 spry NS DAILY #1 btl 04/13/18 11/23/18 ibuprofen 400 mg PO Q6H #15 tab 04/13/18 11/23/18 lidocaine [Lidoderm] 1 ea TOPICAL Q24H #4 patch 07/14/18 11/23/18 omeprazole magnesium [Prilosec OTC] 07/14/18 11/23/18 clindamycin HCl 300 mg PO QID #40 cap 08/12/18 11/23/18 trazodone 50 mg tablet 75 mg PO QHS tab 11/23/18 11/23/18 amoxicillin 500 mg PO TID #30 tab 01/26/19 Previous Rx's Medication Instructions Recorded levothyroxine 175 mcg PO DAILY #90 tab-cap 12/16/17 fluticasone propionate 2 spry NS DAILY #1 btl 04/13/18 ibuprofen 400 mg PO Q6H #15 tab 04/13/18 lidocaine [Lidoderm] 1 ea TOPICAL Q24H #4 patch 07/14/18 clindamycin HCl 300 mg PO QID #40 cap 08/12/18 amoxicillin 500 mg PO TID #30 tab 01/26/19 Allergies Allergy/AdvReac Type Severity Reaction Status Date / Time bupropion HCl Allergy Mild Skin Rash Unverified 11/23/18 12:54 [From Wellbutrin] gabapentin Allergy Skin Rash Unverified 11/23/18 12:54 Animal Dander Allergy Intermediate Runny Uncoded 11/23/18 12:54 nose, itchy eyes H1N1 vaccine Allergy Intermediate Hives Uncoded 11/23/18 12:54 General AIDAN: 3 Review of Systems Review of Systems All systems reviewed & are unremarkable except as noted in HPI and below Constitutional Denies chills and Denies fever(s) Cardiovascular Denies chest pain and Denies dyspnea Respiratory Denies cough and Denies dyspnea Gastrointestinal Denies abdominal pain, Denies nausea and Denies vomiting PFSH Medical History Asthma Depression Hypothyroid Obesity, Class III, BMI 40-49.9 (morbid obesity) Smoker Surgical History H/O tubal ligation (Chronic) section Family History Mother No problems noted. Father No problems noted. Brother No problems noted. Social History Smoking/Tobacco Use Status: Current every day Alcohol Intake: current Drug use: Daily Do you feel safe in your relationship?: Yes Female Reproductive History Menstrual control method: permanent sterilization (tubal 10/2018) History History 2 Para Hx # Term Pregnancies Multiple births Hx # Pregnancies Ectopic pregnancies AB induced Hx Number of Living Children AB spontaneous Exam Const General: no acute distress Orientation: alert HENMT Head: normal to inspection Ears: external ears normal General nose exam: external nose normal Mouth: moist mucous membranes Eyes General: appearance normal, both eyes and all related structures Neck Neck: normal visual inspection Resp Effort & Inspection: normal respiratory effort and able to speak in complete sentences Cardio Rate: regular rate Skin General skin exam: no rashes or lesions noted Neuro General: alert and oriented x3 Extrem General: normal to inspection Psych Mental Status: mental status grossly normal
[2019-01-26 21:21] VITALS: BP 110/72; PULSE 81; RESP 16; TEMP 37.1; O2SAT 99
[2019-01-26] MEDS: Amoxicillin 500 MG CAP PO (21:23)
== END 2019-01-26 21:26 | disposition home or self-care (01) ==
LOC: ER 21:22
PROVIDERS: Emergency Provider Emergency Medicine; PCP Internal Medicine
DX: H66.93 Otitis media, unspecified, bilateral (principal)
CPT/HCPCS: 99283

== ENCOUNTER 2019-03-07 16:48 | Outpatient (REF) | payer MEDICAID, SELFPAY | END 2019-03-07 17:08 | LOC: LBN 16:48 | PROVIDERS: PCP Internal Medicine; Visit Provider Nurse Practitioner Women's Health | DX: R30.0 Dysuria (principal) | CPT/HCPCS: 87086 ==

== ENCOUNTER 2019-03-08 16:31 | Emergency (ER) | payer MEDICAID, SELFPAY ==
[2019-03-08 16:33] VITALS: BP 116/52; PULSE 86; RESP 18; TEMP 37.2; O2SAT 98
--- NOTE | 2019-03-08 17:08 | W.ED.GENAD ---
Discharge Plan Disposition Patient Disposition: HOME Condition: Stable Discharge Details Chief Complaint: EarProblem Clinical Impression: Otitis media Primary Care Provider: Deanna Jones ED Provider: Meena Luna Home Meds and New Rx's Prescriptions: New amoxicillin-pot clavulanate [Augmentin] 875-125 mg tablet 1 tab PO BID Qty: 14 RF: 0 Continued trazodone 50 mg tablet 75 mg PO QHS RF: 0 ibuprofen 800 MG tablet 800 mg PO PRN RF: 0 albuterol sulfate 8.5 GM HFA aerosol inhaler 1 - 2 puff Inhalation Q4H PRN RF: 0 Flovent HFA 12 GM HFA aerosol inhaler 12 gm Inhalation PRN RF: 0 Symbicort 10.2 GM HFA aerosol inhaler 2 puff Inhalation BID RF: 0 levothyroxine 175 MCG tablet 175 mcg PO DAILY Qty: 90 RF: 1 citalopram [Celexa] 20 MG tablet 40 mg PO DAILY RF: 0 ibuprofen 400 MG tablet 400 mg PO Q6H Qty: 15 RF: 0 Prilosec OTC 20 mg Tablet,Delayed Release (Dr/Ec) 40 mg PO DAILY RF: 0 Discharge Instructions Instructions: Otitis Media (ED) Additional Instructions: Encourage hydration. Tylenol and ibuprofen as needed for discomfort. Please take antibiotics as prescribed. Even if symptoms improve, please take the entire course. Please follow-up with primary care when to come back from your trip to discuss your recurrent ear infections. If you develop fever/chills, increased pain or other new/worsening symptoms please seek care urgently once again. Referrals: Deanna Jones [Primary Care Provider] - Medical Decision Making Patient is a 33-year-old female presenting today with chief complaint of bilateral ear pain. She was seen here approximately 2 months ago at which time she was diagnosed with otitis media and treated with amoxicillin. Reports that she has had a multitude of ear infections as an adult. States she is had the pain for the past week the left ear in particular has gotten worse in recent days. Denies any discharge. Is that the hearing is diminished in the left side. Denies any fevers or chills. During exam, patient appears nontoxic. She has retraction of both tympanic membranes with associated erythema. She does have purulent fluid noted behind the left tympanic membrane. Hearing is grossly intact. No mastoid tenderness. Plan to treat with Augmentin. Encourage hydration. Advised that she will need follow-up with her primary care to discuss this recurrent issue of otitis media. Patient is leaving tomorrow for [place] but will seek care when she is return. We discussed new/worsening symptoms when to seek care urgently once again. All of her questions and concerns were addressed she is in agreement this plan. HPI General Mode of arrival: ambulatory. Date/Time Provider Initiated Documentation: 03/08/19 17:08. Limitations to Documentation: no limitations. Information obtained by: patient and RN notes reviewed. History of Present Illness 33 year old F presents to the emergency department with the chief complaint of bilateral ear pain L>R, described as moderate, Quality is described as aching, Patient reports no radiation. Patient started experiencing this day(s) and it has been constant. No relieving factors improve symptom(s), No exacerbating factors reported . Patient notes no other symptoms.. Patient did receive the following treatments prior to arrival, none Related Data Home Medications Medication Instructions Recorded Confirmed Flovent HFA 12 gm INHALATION PRN inhaler 02/05/14 03/07/19 albuterol sulfate 1 - 2 puff INHALATION Q4H PRN 02/05/14 03/08/19 inhaler ibuprofen 800 mg PO PRN 02/05/14 03/08/19 citalopram [Celexa] 40 mg PO DAILY 04/05/15 03/08/19 Symbicort 2 puff INHALATION BID inhaler 08/05/15 03/08/19 levothyroxine 175 mcg PO DAILY #90 tab-cap 12/16/17 03/08/19 ibuprofen 400 mg PO Q6H #15 tab 04/13/18 03/08/19 Prilosec OTC 40 mg PO DAILY 07/14/18 03/08/19 trazodone 50 mg tablet 75 mg PO QHS tab 11/23/18 03/08/19 amoxicillin-pot clavulanate 1 tab PO BID #14 tab 03/08/19 [Augmentin] Previous Rx's Medication Instructions Recorded levothyroxine 175 mcg PO DAILY #90 tab-cap 12/16/17 ibuprofen 400 mg PO Q6H #15 tab 04/13/18 amoxicillin-pot clavulanate 1 tab PO BID #14 tab 03/08/19 [Augmentin] Allergies Allergy/AdvReac Type Severity Reaction Status Date / Time bupropion HCl Allergy Mild Skin Rash Unverified 03/08/19 16:40 [From Wellbutrin] gabapentin Allergy Skin Rash Unverified 03/08/19 16:40 Animal Dander Allergy Intermediate Runny Uncoded 03/08/19 16:40 nose, itchy eyes H1N1 vaccine Allergy Intermediate Hives Uncoded 03/08/19 16:40 General Stated Complaint: EarProblem AIDAN: 4 Review of Systems Constitutional Reports as per HPI, Denies chills, Denies fatigue, Denies fever(s), Denies headache(s) and Denies poor appetite Eyes Reports as per HPI, Denies eye discharge and Denies irritation ENT Reports as per HPI, Denies change in voice, Denies ear discharge, Reports otalgia (bilateral L>R), Denies headache(s), Reports hearing loss (dimished hear L), Denies hoarseness, Denies nasal congestion, Denies sinus pain, Denies sinus pressure, Denies sore throat and Denies throat swelling Cardiovascular Reports as per HPI, Denies chest pain and Denies dyspnea Respiratory Reports as per HPI, Reports cough (chronic, associates with smoking, no recent change) and Denies dyspnea Gastrointestinal Reports as per HPI, Denies abdominal pain, Denies change in bowel habits, Denies nausea and Denies vomiting Integumentary/Breasts Reports as per HPI and Denies rash Neurologic Reports as per HPI and Denies headache(s) Endocrine Denies fatigue Allergic/Immunologic Denies throat swelling PFSH Medical History Asthma Depression Hypothyroid Obesity, Class III, BMI 40-49.9 (morbid obesity) Smoker Surgical History H/O tubal ligation (Chronic) section Social History Smoking/Tobacco Use Status: Current every day Tobacco Type: cigarettes Alcohol Intake: current Alcohol Intake frequency: a few times a month Drug use: Daily Substance use type: marijuana Do you feel safe at home: Yes Do you feel safe in your relationship?: Yes Female Reproductive History Menstrual control method: permanent sterilization (tubal 10/2018) History History 2 Para Hx # Term Pregnancies Multiple births Hx # Pregnancies Ectopic pregnancies AB induced Hx Number of Living Children AB spontaneous Exam Const General: cooperative, healthy appearing, comfortable, no acute distress, well developed and well groomed Nutritional Appearance: well nourished and overweight Orientation: alert and awake [facility] Head: normal to inspection, normocephalic and atraumatic Ears: hearing grossly normal bilaterally, external ears normal, mastoids normal, no periauricular adenopathy and TM abnormal wth effusion purulent on the left, erythematous bilaterally and retracted bilaterally General nose exam: external nose normal and nares normal Face and sinus: normal facial exam, sinuses nontender and face symmetric Mouth: oral mucosae normal, lip normal, tongue normal, oropharynx normal and moist mucous membranes Teeth and gingiva: dentition normal Throat: posterior oropharynx normal, tonsils normal and uvula midline Eyes General: appearance normal, both eyes and all related structures Neck Neck: normal visual inspection, full ROM, no lymphadenopathy and no meningeal signs Resp Effort & Inspection: normal respiratory effort, able to speak in complete sentences and no respiratory distress Auscultation: clear to auscultation bilaterally, no rales, no rhonchi and no wheezes Cardio Rate: regular rate Rhythm: regular rhythm Heart Sounds: S1 normal and S2 normal Skin General skin exam: no rashes or lesions noted Neuro General: alert and awake Cognition: normal cognition Speech: speech normal Gait: normal gait Psych Appearance: grossly normal and well kempt Mental Status: mental status grossly normal Speech and Movement: speech and movement normal Course Vital Signs Temperature 37.2 C 03/08/19 16:33 Pulse 86 03/08/19 16:33 Respiratory Rate 18 03/08/19 16:33 Blood Pressure 116/52 L 03/08/19 16:33 Pulse Oximetry 98 03/08/19 16:33 Temperature 37.2 C 03/08/19 16:33 Temperature Source Skin 03/08/19 16:33 Pulse 86 03/08/19 16:33 Respiratory Rate 18 03/08/19 16:33 Respiratory Effort 03/08/19 16:38 Blood Pressure 116/52 L 03/08/19 16:33 Blood Pressure Position Sitting 03/08/19 16:33 Pulse Oximetry 98 03/08/19 16:33 Oxygen Delivery Method Room Air 03/08/19 16:33 Oxygen Flow Rate 0 03/08/19 16:33 Pain Level 0 03/08/19 16:33
--- NOTE | 2019-03-08 17:23 | ED.GENADUL_ITS ---
Discharge Plan Disposition Patient Disposition: HOME Condition: Stable Discharge Details Chief Complaint: EarProblem Clinical Impression: Otitis media Primary Care Provider: Deanna Jones ED Provider: Meena Luna Home Meds and New Rx's Prescriptions: New amoxicillin-pot clavulanate [Augmentin] 875-125 mg tablet 1 tab PO BID Qty: 14 RF: 0 Continued trazodone 50 mg tablet 75 mg PO QHS RF: 0 ibuprofen 800 MG tablet 800 mg PO PRN RF: 0 albuterol sulfate 8.5 GM HFA aerosol inhaler 1 - 2 puff Inhalation Q4H PRN RF: 0 Flovent HFA 12 GM HFA aerosol inhaler 12 gm Inhalation PRN RF: 0 Symbicort 10.2 GM HFA aerosol inhaler 2 puff Inhalation BID RF: 0 levothyroxine 175 MCG tablet 175 mcg PO DAILY Qty: 90 RF: 1 citalopram [Celexa] 20 MG tablet 40 mg PO DAILY RF: 0 ibuprofen 400 MG tablet 400 mg PO Q6H Qty: 15 RF: 0 Prilosec OTC 20 mg Tablet,Delayed Release (Dr/Ec) 40 mg PO DAILY RF: 0 Discharge Instructions Instructions: Otitis Media (ED) Additional Instructions: Encourage hydration. Tylenol and ibuprofen as needed for discomfort. Please take antibiotics as prescribed. Even if symptoms improve, please take the entire course. Please follow-up with primary care when to come back from your trip to discuss your recurrent ear infections. If you develop fever/chills, increased pain or other new/worsening symptoms please seek care urgently once again. Referrals: Deanna Jones [Primary Care Provider] - Medical Decision Making Patient is a 33-year-old female presenting today with chief complaint of bilateral ear pain. She was seen here approximately 2 months ago at which time she was diagnosed with otitis media and treated with amoxicillin. Reports that she has had a multitude of ear infections as an adult. States she is had the pain for the past week the left ear in particular has gotten worse in recent days. Denies any discharge. Is that the hearing is diminished in the left side. Denies any fevers or chills. During exam, patient appears nontoxic. She has retraction of both tympanic membranes with associated erythema. She does have purulent fluid noted behind the left tympanic membrane. Hearing is grossly intact. No mastoid tenderness. Plan to treat with Augmentin. Encourage hydration. Advised that she will need follow-up with her primary care to discuss this recurrent issue of otitis media. Patient is leaving tomorrow for [place] but will seek care when she is return. We discussed new/worsening symptoms when to seek care urgently once again. All of her questions and con cerns were addressed she is in agreement this plan. HPI General Mode of arrival: ambulatory . Date/Time Provider Initiated Documentation: 03/08/19 17:08 . Limitations to Documentation: no limitations . Information obtained by: patient and RN notes reviewed . History of Present Illness 33 year old F presents to the emergency department with the chief complaint of bilateral ear pain L>R, described as moderate, Quality is described as aching, Patient reports no radiation. Patient started experiencing this day(s) and it has been constant. No relieving factors improve symptom(s), No exacerbating factors reported . Patient notes no other symptoms.. Patient did receive the following treatments prior to arrival, none Related Data Home Medications Medication Instructions Recorded Confirmed Flovent HFA 12 gm INHALATION PRN inhaler 02/05/14 03/07/19 albuterol sulfate 1 - 2 puff INHALATION Q4H PRN 02/05/14 03/08/19 inhaler ibuprofen 800 mg PO PRN 02/05/14 03/08/19 citalopram [Celexa] 40 mg PO DAILY 04/05/15 03/08/19 Symbicort 2 puff INHALATION BID inhaler 08/05/15 03/08/19 levothyroxine 175 mcg PO DAILY #90 tab-cap 12/16/17 03/08/19 ibuprofen 400 mg PO Q6H #15 tab 04/13/18 03/08/19 Prilosec OTC 40 mg PO DAILY 07/14/18 03/08/19 trazodone 50 mg tablet 75 mg PO QHS tab 11/23/18 03/08/19 amoxicillin-pot clavulanate 1 tab PO BID #14 tab 03/08/19 [Augmentin] Previous Rx's Medication Instructions Recorded levothyroxine 175 mcg PO DAILY #90 tab-cap 12/16/17 ibuprofen 400 mg PO Q6H #15 tab 04/13/18 amoxicillin-pot clavulanate 1 tab PO BID #14 tab 03/08/19 [Augmentin] Allergies Allergy/AdvReac Type Severity Reaction Status Date / Time bupropion HCl Allergy Mild Skin Rash Unverified 03/08/19 16:40 [From Wellbutrin] gabapentin Allergy Skin Rash Unverified 03/08/19 16:40 Animal Dander Allergy Intermediate Runny Uncoded 03/08/19 16:40 nose, itchy eyes H1N1 vaccine Allergy Intermediate Hives Uncoded 03/08/19 16:40 General Stated Complaint: EarProblem AIDAN: 4 Review of Systems Constitutional Reports as per HPI, Denies chills, Denies fatigue, Denies fever(s), Denies headache(s) and Denies poor appetite Eyes Reports as per HPI, Denies eye discharge and Denies irritation ENT Reports as per HPI, Denies change in voice, Denies ear discharge, Reports otalgia (bilateral L>R), Denies headache(s), Reports hearing loss (dimished hear L), Denies hoarseness, Denies nasal congestion, Denies sinus pain, Denies sinus pressure, Denies sore throat and Denies throat swelling Cardiovascular Reports as per HPI, Denies chest pain and Denies dyspnea Respiratory Reports as per HPI, Reports cough (chronic, associates with smoking, no recent change) and Denies dyspnea Gastrointestinal Reports as per HPI, Denies abdominal pain, Denies change in bowel habits, Denies nausea and Denies vomiting Integumentary/Breasts Reports as per HPI and Denies rash Neurologic Reports as per HPI and Denies headache(s) Endocrine Denies fatigue Allergic/Immunologic Denies throat swelling PFSH Medical History Asthma Depression Hypothyroid Obesity, Class III, BMI 40-49.9 (morbid obesity) Smoker Surgical History H/O tubal ligation (Chronic) section Social History Smoking/Tobacco Use Status: Current every day Tobacco Type: cigarettes Alcohol Intake: current Alcohol Intake frequency: a few times a month Drug use: Daily Substance use type: marijuana Do you feel safe at home: Yes Do you feel safe in your relationship?: Yes Female Reproductive History Menstrual control method: permanent sterilization (tubal 10/2018) History History 2 Para Hx # Term Pregnancies Multiple births Hx # Pregnancies Ectopic pregnancies AB induced Hx Number of Living Children AB spontaneous Exam Const General: cooperative, healthy appearing, comfortable, no acute distress, well developed and well groomed Nutritional Appearance: well nourished and overweight Orientation: alert and awake [facility] Head: normal to inspection, normocephalic and atraumatic Ears: hearing grossly normal bilaterally, external ears normal, mastoids normal, no periauricular adenopathy and TM abnormal wth effusion purulent on the left, erythematous bilaterally and retracted bilaterally General nose exam: external nose normal and nares normal Face and sinus: normal facial exam, sinuses nontender and face symmetric Mouth: oral mucosae normal, lip normal, tongue normal, oropharynx normal and moist mucous membranes Teeth and gingiva: dentition normal Throat: posterior oropharynx normal, tonsils normal and uvula midline Eyes General: appearance normal, both eyes and all related structures Neck Neck: normal visual inspection, full ROM, no lymphadenopathy and no meningeal signs Resp Effort & Inspection: normal respiratory effort, able to speak in complete sentences and no respiratory distress Auscultation: clear to auscultation bilaterally, no rales, no rhonchi and no wheezes Cardio Rate: regular rate Rhythm: regular rhythm Heart Sounds: S1 normal and S2 normal Skin General skin exam: no rashes or lesions noted Neuro General: alert and awake Cognition: normal cognition Speech: speech normal Gait: normal gait Psych Appearance: grossly normal and well kempt Mental Status: mental status grossly normal Speech and Movement: speech and movement normal Course Vital Signs Temperature 37.2 C 03/08/19 16:33 Pulse 86 03/08/19 16:33 Respiratory Rate 18 03/08/19 16:33 Blood Pressure 116/52 L 03/08/19 16:33 Pulse Oximetry 98 03/08/19 16:33 Temperature 37.2 C 03/08/19 16:33 Temperature Source Skin 03/08/19 16:33 Pulse 86 03/08/19 16:33 Respiratory Rate 18 03/08/19 16:33 Respiratory Effort 03/08/19 16:38 Blood Pressure 116/52 L 03/08/19 16:33 Blood Pressure Position Sitting 03/08/19 16:33 Pulse Oximetry 98 03/08/19 16:33 Oxygen Delivery Method Room Air 03/08/19 16:33 Oxygen Flow Rate 0 03/08/19 16:33 Pain Level 0 03/08/19 16:33
== END 2019-03-08 17:27 | disposition home or self-care (01) ==
PROVIDERS: Emergency Provider Physician Assistant; PCP Internal Medicine
DX: H66.93 Otitis media, unspecified, bilateral (principal); F17.210 Nicotine dependence, cigarettes, uncomplicated
CPT/HCPCS: 99283

== ENCOUNTER 2019-04-06 21:36 | Emergency (ER) | payer MEDICAID, SELFPAY ==
[2019-04-06 22:12] VITALS: BP 113/60; PULSE 72; RESP 18; TEMP 36.7; O2SAT 97
--- NOTE | 2019-04-06 22:23 | W.ED.GENAD ---
Discharge Plan Disposition Patient Disposition: HOME Condition: Improving Discharge Details Chief Complaint: EarProblem Clinical Impression: Otitis media Primary Care Provider: Deanna Jones ED Provider: Dhiraj Allison Home Meds and New Rx's Prescriptions: New cefdinir 300 mg capsule 300 mg PO Q12H 10 Days Qty: 20 RF: 0 loratadine [Claritin] 10 mg tablet 10 mg PO DAILY Qty: 20 RF: 0 Continued trazodone 50 mg tablet 75 mg PO QHS RF: 0 albuterol sulfate 8.5 GM HFA aerosol inhaler 1 - 2 puff Inhalation Q4H PRN RF: 0 Flovent HFA 12 GM HFA aerosol inhaler 12 gm Inhalation PRN RF: 0 Symbicort 10.2 GM HFA aerosol inhaler 2 puff Inhalation BID RF: 0 levothyroxine 175 MCG tablet 175 mcg PO DAILY Qty: 90 RF: 1 citalopram [Celexa] 20 MG tablet 40 mg PO DAILY RF: 0 Prilosec OTC 20 mg Tablet,Delayed Release (Dr/Ec) 40 mg PO DAILY RF: 0 Discharge Instructions Instructions: Otitis Media (ED) Additional Instructions: Follow-up with regular doctor as planned in 10 days time for recheck Take antibiotics as prescribed. Home to rest. I recommend you trial Claritin to reduce the congestion in your ears. Return for any acute concerns. Medical Decision Making 33-year-old female with 2 episodes of otitis media since the early spring, no antibiotics for 1 month. Now with 2 days of recurrent right greater than left ear pain. She has fluid-filled, distended, erythematous tympanic membranes. Discussed with her that it may be more of an allergic congestion but cannot exclude developing otitis media. We will treat her with a course of Cefdinir, Claritin, follow-up with PMD. HPI General Mode of arrival: ambulatory. Date/Time Provider Initiated Documentation: 04/06/19 21:55. Limitations to Documentation: no limitations. Information obtained by: patient. History of Present Illness 33 year old F presents to the emergency department with the chief complaint of Right greater than left ear pain, recurrent, described as moderate and similar to prior episodes, Quality is described as dull and constant, and is localized to the head. Patient reports no radiation. Patient started experiencing this day(s) and it has been constant. No relieving factors improve symptom(s), No exacerbating factors reported . Patient notes no other symptoms.; denies fever/chills, headaches and nausea/vomiting. Patient did receive the following treatments prior to arrival, none Related Data Home Medications Medication Instructions Recorded Confirmed Flovent HFA 12 gm INHALATION PRN inhaler 02/05/14 04/06/19 albuterol sulfate 1 - 2 puff INHALATION Q4H PRN 02/05/14 04/06/19 inhaler citalopram [Celexa] 40 mg PO DAILY 04/05/15 04/06/19 Symbicort 2 puff INHALATION BID inhaler 08/05/15 04/06/19 levothyroxine 175 mcg PO DAILY #90 tab-cap 12/16/17 04/06/19 Prilosec OTC 40 mg PO DAILY 07/14/18 04/06/19 trazodone 50 mg tablet 75 mg PO QHS tab 11/23/18 04/06/19 cefdinir 300 mg PO Q12H 10 Days #20 cap 04/06/19 loratadine [Claritin] 10 mg PO DAILY #20 tab 04/06/19 Previous Rx's Medication Instructions Recorded levothyroxine 175 mcg PO DAILY #90 tab-cap 12/16/17 cefdinir 300 mg PO Q12H 10 Days #20 cap 04/06/19 loratadine [Claritin] 10 mg PO DAILY #20 tab 04/06/19 Allergies Allergy/AdvReac Type Severity Reaction Status Date / Time bupropion HCl Allergy Mild Skin Rash Unverified 04/06/19 22:17 [From Wellbutrin] gabapentin Allergy Skin Rash Unverified 04/06/19 22:17 Animal Dander Allergy Intermediate Runny Uncoded 04/06/19 22:17 nose, itchy eyes H1N1 vaccine Allergy Intermediate Hives Uncoded 04/06/19 22:17 General Stated Complaint: EarProblem AIDAN: 4 Review of Systems Review of Systems 6 systems reviewed and otherwise negative. [facility] Medical History Asthma Depression Hypothyroid Obesity, Class III, BMI 40-49.9 (morbid obesity) Smoker Surgical History H/O tubal ligation (Chronic) section Family History Mother No problems noted. Father No problems noted. Brother No problems noted. Social History Smoking/Tobacco Use Status: Current every day Tobacco Type: cigarettes Alcohol Intake: current Alcohol Intake frequency: a few times a month Drug use: Daily Substance use type: marijuana Do you feel safe at home: Yes Do you feel safe in your relationship?: Yes Female Reproductive History Menstrual control method: permanent sterilization (tubal 10/2018) History History 2 Para Hx # Term Pregnancies Multiple births Hx # Pregnancies Ectopic pregnancies AB induced Hx Number of Living Children AB spontaneous Exam Narrative Exam Narrative: GEN: awake, alert, oriented 3. Pleasant, well groomed, interactive. HEAD: Normocephalic, atraumatic ENT: Mucous membranes moist, oropharynx unremarkable, External ear exam unremarkable. The tympanic membranes are congested, fluid-filled, distended with loss of light reflex and erythema right greater than left EYES: PERRL, EOMI NECK: Full ROM, no JING, no menigismus CHEST/RESP: Nontender, clear to auscultation bilateral, no wheeze/rhonchi/rales CARDIOVASCULAR: RRR, no murmur, rub camille. 2+ Rad pulse bilateral ABDOMEN: Soft, nontender, no mass. +Bowel sounds EXT: Full ROM, no edema, no rash Neuro: Grossly normal neurologic exam, conversant, interactive. Psych: Speech fluent, thoughts congruent, affect normal Course Vital Signs Temperature 36.7 C 04/06/19 22:12 Pulse 72 04/06/19 22:12 Respiratory Rate 18 04/06/19 22:12 Blood Pressure 113/60 04/06/19 22:12 Pulse Oximetry 97 04/06/19 22:12 Temperature 36.7 C 04/06/19 22:12 Temperature Source Temporal Artery Scan 04/06/19 22:12 Pulse 72 04/06/19 22:12 Respiratory Rate 18 04/06/19 22:12 Respiratory Effort Non-Labored 04/06/19 22:16 Blood Pressure 113/60 04/06/19 22:12 Blood Pressure Position Sitting 04/06/19 22:12 Pulse Oximetry 97 04/06/19 22:12 Oxygen Delivery Method Room Air 04/06/19 22:12 Oxygen Flow Rate 0 04/06/19 22:12 Pain Level 6 04/06/19 22:20
--- NOTE | 2019-04-06 22:26 | ED.GENADUL_ITS ---
Discharge Plan Disposition Patient Disposition: HOME Condition: Improving Discharge Details Chief Complaint: EarProblem Clinical Impression: Otitis media Primary Care Provider: Deanna Jones ED Provider: Dhiraj Allison Home Meds and New Rx's Prescriptions: New cefdinir 300 mg capsule 300 mg PO Q12H 10 Days Qty: 20 RF: 0 loratadine [Claritin] 10 mg tablet 10 mg PO DAILY Qty: 20 RF: 0 Continued trazodone 50 mg tablet 75 mg PO QHS RF: 0 albuterol sulfate 8.5 GM HFA aerosol inhaler 1 - 2 puff Inhalation Q4H PRN RF: 0 Flovent HFA 12 GM HFA aerosol inhaler 12 gm Inhalation PRN RF: 0 Symbicort 10.2 GM HFA aerosol inhaler 2 puff Inhalation BID RF: 0 levothyroxine 175 MCG tablet 175 mcg PO DAILY Qty: 90 RF: 1 citalopram [Celexa] 20 MG tablet 40 mg PO DAILY RF: 0 Prilosec OTC 20 mg Tablet,Delayed Release (Dr/Ec) 40 mg PO DAILY RF: 0 Discharge Instructions Instructions: Otitis Media (ED) Additional Instructions: Follow-up with regular doctor as planned in 10 days time for recheck Take antibiotics as prescribed. Home to rest. I recommend you trial Claritin to reduce the congestion in your ears. Return for any acute concerns. Medical Decision Making 33-year-old female with 2 episodes of otitis media since the early spring, no antibiotics for 1 month. Now with 2 days of recurrent right greater than left ear pain. She has fluid-filled, distended, erythematous tympanic membranes. Discussed with her that it may be more of an allergic congestion but cannot exclude developing otitis media. We will treat her with a course of Cefdinir, Claritin, follow-up with PMD. HPI General Mode of arrival: ambulatory . Date/Time Provider Initiated Documentation: 04/06/19 21:55 . Limitations to Documentation: no limitations . Information obtained by: patient . History of Present Illness 33 year old F presents to the emergency department with the chief complaint of Right greater than left ear pain, recurrent, described as moderate and similar to prior epis odes, Quality is described as dull and constant, and is localized to the head. Patient reports no radiation. Patient started experiencing this day(s) and it has been constant. No relieving factors improve symptom(s), No exacerbating factors reported . Patient notes no other symptoms.; denies fever/chills, headaches and nausea/vomiting. Patient did receive the following treatments prior to arrival, none Related Data Home Medications Medication Instructions Recorded Confirmed Flovent HFA 12 gm INHALATION PRN inhaler 02/05/14 04/06/19 albuterol sulfate 1 - 2 puff INHALATION Q4H PRN 02/05/14 04/06/19 inhaler citalopram [Celexa] 40 mg PO DAILY 04/05/15 04/06/19 Symbicort 2 puff INHALATION BID inhaler 08/05/15 04/06/19 levothyroxine 175 mcg PO DAILY #90 tab-cap 12/16/17 04/06/19 Prilosec OTC 40 mg PO DAILY 07/14/18 04/06/19 trazodone 50 mg tablet 75 mg PO QHS tab 11/23/18 04/06/19 cefdinir 300 mg PO Q12H 10 Days #20 cap 04/06/19 loratadine [Claritin] 10 mg PO DAILY #20 tab 04/06/19 Previous Rx's Medication Instructions Recorded levothyroxine 175 mcg PO DAILY #90 tab-cap 12/16/17 cefdinir 300 mg PO Q12H 10 Days #20 cap 04/06/19 loratadine [Claritin] 10 mg PO DAILY #20 tab 04/06/19 Allergies Allergy/AdvReac Type Severity Reaction Status Date / Time bupropion HCl Allergy Mild Skin Rash Unverified 04/06/19 22:17 [From Wellbutrin] gabapentin Allergy Skin Rash Unverified 04/06/19 22:17 Animal Dander Allergy Intermediate Runny Uncoded 04/06/19 22:17 nose, itchy eyes H1N1 vaccine Allergy Intermediate Hives Uncoded 04/06/19 22:17 General Stated Complaint: EarProblem AIDAN: 4 Review of Systems Review of Systems 6 systems reviewed and otherwise negative. [facility] Medical History Asthma Depression Hypothyroid Obesity, Class III, BMI 40-49.9 (morbid obesity) Smoker Surgical History H/O tubal ligation (Chronic) section Family History Mother No problems noted. Father No problems noted. Brother No problems noted. Social History Smoking/Tobacco Use Status: Current every day Tobacco Type: cigarettes Alcohol Intake: current Alcohol Intake frequency: a few times a month Drug use: Daily Substance use type: marijuana Do you feel safe at home: Yes Do you feel safe in your relationship?: Yes Female Reproductive History Menstrual control method: permanent sterilization (tubal 10/2018) History History 2 Para Hx # Term Pregnancies Multiple births Hx # Pregnancies Ectopic pregnancies AB induced Hx Number of Living Children AB spontaneous Exam Narrative Exam Narrative: GEN: awake, alert, oriented 3. Pleasant, well groomed, interactive. HEAD: Normocephalic, atraumatic ENT: Mucous membranes moist, oropharynx unremarkable, External ear exam unremarkable. The tympanic membranes are congested, fluid-filled, distended with loss of light reflex and erythema right greater than left EYES: PERRL, EOMI NECK: Full ROM, no JING, no menigismus CHEST/RESP: Nontender, clear to auscultation bilateral, no wheeze/rhonchi/rales CARDIOVASCULAR: RRR, no murmur, rub camille. 2+ Rad pulse bilateral ABDOMEN: Soft, nontender, no mass. +Bowel sounds EXT: Full ROM, no edema, no rash Neuro: Grossly normal neurologic exam, conversant, interactive. Psych: Speech fluent, thoughts congruent, affect normal Course Vital Signs Temperature 36.7 C 04/06/19 22:12 Pulse 72 04/06/19 22:12 Respiratory Rate 18 04/06/19 22:12 Blood Pressure 113/60 04/06/19 22:12 Pulse Oximetry 97 04/06/19 22:12 Temperature 36.7 C 04/06/19 22:12 Temperature Source Temporal Artery Scan 04/06/19 22:12 Pulse 72 04/06/19 22:12 Respiratory Rate 18 04/06/19 22:12 Respiratory Effort Non-Labored 04/06/19 22:16 Blood Pressure 113/60 04/06/19 22:12 Blood Pressure Position Sitting 04/06/19 22:12 Pulse Oximetry 97 04/06/19 22:12 Oxygen Delivery Method Room Air 04/06/19 22:12 Oxygen Flow Rate 0 04/06/19 22:12 Pain Level 6 04/06/19 22:20
[2019-04-06] MEDS: Cefdinir 300 MG CAP PO (22:34)
== END 2019-04-06 22:38 | disposition home or self-care (01) ==
PROVIDERS: Emergency Provider Emergency Medicine; PCP Internal Medicine
DX: H66.93 Otitis media, unspecified, bilateral (principal)
CPT/HCPCS: 99283

== ENCOUNTER 2019-07-06 15:01 | Emergency (ER) | payer MEDICAID, SELFPAY ==
[2019-07-06 15:05] VITALS: BP 110/62; PULSE 66; RESP 20; TEMP 36.5; O2SAT 96
--- NOTE | 2019-07-06 16:13 | ED.GENADUL_ITS ---
Discharge Plan Disposition Patient Disposition: HOME Condition: Good Discharge Details Chief Complaint: EarProblem Clinical Impression: Acute effusion of left ear Primary Care Provider: Deanna Jones ED Provider: Katerine Frias Home Meds and New Rx's Prescriptions: New Flonase Sensimist 27.5 mcg/actuation spray,suspension 2 spray CARY DAILY Qty: 5.9 RF: 0 prednisone 20 mg tablet 20 mg PO DAILY Qty: 5 RF: 0 No Action trazodone 50 mg tablet 100 mg PO QHS RF: 0 albuterol sulfate 8.5 GM HFA aerosol inhaler 1 - 2 puff Inhalation Q4H PRN RF: 0 Flovent HFA 12 GM HFA aerosol inhaler 12 gm Inhalation PRN RF: 0 Symbicort 10.2 GM HFA aerosol inhaler 2 puff Inhalation BID RF: 0 levothyroxine 175 MCG tablet 175 mcg PO DAILY Qty: 90 RF: 1 citalopram [Celexa] 20 MG tablet 40 mg PO DAILY RF: 0 loratadine [Claritin] 10 mg tablet 10 mg PO DAILY Qty: 20 RF: 0 Prilosec OTC 20 mg Tablet,Delayed Release (Dr/Ec) 40 mg PO DAILY RF: 0 Discharge Instructions Additional Instructions: Continue to drink plenty of fluids Use Benadryl [id number] if needed at night. Use prednisone as prescribed. Use nasal saline spray 3 times daily. 5 minutes after morning use of nasal saline sprays Flonase [id number], prescription provided. Follow-up with your ear nose and throat doctor as scheduled. Return sooner for any worsening, concerns or alarming symptoms. Specifically return for any fevers, ill feeling or lack of improvement as expected as discussed. Medical Decision Making Is a pleasant 33-year-old woman who is two-week status post right ear tube placement with local ENT Dr. Zelaya. Patient is due to follow-up in 2 weeks. Patient presents to the emergency room today for complaints of contralateral ear fluid in conjunction with mild pain. Denies any infectious symptoms such as fever, chills, malaise. Patient has a baseline cough which she reports is typical and unchanged. Patient is concerned that she is tried nasal saline spray [id number] without relief and is very bothered by the fluid behind her left ear. Patient has struggled with sinus symptoms and ear problems her whole life and she is quite familiar with them. Patient is not concerned that she has an infection but is more concerned with the persistence of fluid. On exam she does have mild effusion behind the left TM without bulging or significant erythema. Discussed conservative treatments versus prednisone. Patient would prefer prednisone treatment at this time. She has tolerated this medication in the past. She will continue nasal saline rinses I have encouraged Flonase use in the morning after rinsing. Patient reports she hydrates well. Patient is due to follow-up with her doctor in 2 weeks. Discussed return precautions specifically fever or ill feeling for which she may consider antibiotic treatment although does not seem indicated at this time.. Prior to discharge, my usual and customary return precautions were reviewed with the patient - this included follow-up instructions and reasons to return to the Emergency Department if conditions worsens, does not improve as expected, or other new concerns arise. HPI General Date/Time Provider Initiated Documentation: 07/06/19 15:05 . HPI Narrative: Is a pleasant 33-year-old woman who presents for complaints of left ear fluid. Patient reports she had tubes placed in her right ear 2 weeks ago after having several otitis media infections. Patient reports she is due to have follow-up in 2 weeks. Patient reports no discomfort in the right ear. Patient is complaining primarily of left ear discomfort and sensation of fluid. Patient denies any injury or trauma to the ear. Patient denies any significant nasal congestion, sinus pain or pressure sore throat. Patient denies ill feeling, fever, chills, nausea, vomiting. No headache or dizziness. Patient does report a chronic cough which is unchanged with mild associated wheezing. Patient admits to bronchospasm and being a smoker. Reports the cough is unchanged and her baseline. Patient has been using her inhaler at home with relief. Patient denies any other concerns or complaints at this time. Denies any alleviating remedies at home. She has tried nasal saline spray [id number]. Related Data Home Medications Medication Instructions Recorded Confirmed Flovent HFA 12 gm INHALATION PRN inhaler 02/05/14 07/06/19 albuterol sulfate 1 - 2 puff INHALATION Q4H PRN 02/05/14 07/06/19 inhaler citalopram [Celexa] 40 mg PO DAILY 04/05/15 07/06/19 Symbicort 2 puff INHALATION BID inhaler 11/03/15 10/04/19 levothyroxine 175 mcg PO DAILY #90 tab-cap 12/16/17 07/06/19 Prilosec OTC 40 mg PO DAILY 07/14/18 07/06/19 trazodone 50 mg tablet 100 mg PO QHS tab 11/23/18 07/06/19 loratadine [Claritin] 10 mg PO DAILY #20 tab 04/06/19 07/06/19 fluticasone furoate [Flonase 2 spray CARY DAILY #5.9 ml 07/06/19 Sensimist] prednisone 20 mg PO DAILY #5 tab 07/06/19 Previous Rx's Medication Instructions Recorded levothyroxine 175 mcg PO DAILY #90 tab-cap 12/16/17 loratadine [Claritin] 10 mg PO DAILY #20 tab 04/06/19 fluticasone furoate [Flonase 2 spray CARY DAILY #5.9 ml 07/06/19 Sensimist] prednisone 20 mg PO DAILY #5 tab 07/06/19 Allergies Allergy/AdvReac Type Severity Reaction Status Date / Time bupropion HCl Allergy Mild Skin Rash Unverified 07/06/19 15:10 [From Wellbutrin] gabapentin Allergy Skin Rash Unverified 07/06/19 15:10 Animal Dander Allergy Intermediate Runny Uncoded 07/06/19 15:10 nose, itchy eyes H1N1 vaccine Allergy Intermediate Hives Uncoded 07/06/19 15:10 General Stated Complaint: EarProblem AIDAN: 4 Review of Systems Review of Systems ROS Unobtainable: All systems reviewed & are unremarkable except as noted in HPI and below Constitutional Constitutional: Denies chills, Denies fatigue, Denies fever(s), Denies headache(s) and Denies malaise ENT Ears, Nose, Mouth, and Throat: Denies ear discharge, Reports otalgia, Denies headache(s), Denies hearing loss, Denies neck pain, Denies post nasal drip, Denies sinus pain, Denies sinus pressure and Denies sore throat Musculoskeletal Musculoskeletal: Denies neck pain Neurologic Neurologic: Denies headache(s) Endocrine Endocrine: Denies fatigue [facility] Medical History Asthma Takes symbicort and flovent daily and albuterol PRN, managed by PCP Depression takes celexa and seroquel, managed by PCP Hypothyroid Obesity, Class III, BMI 40-49.9 (morbid obesity) Smoker Surgical History section 2006, 2015 H/O tubal ligation (Chronic) 10/[address] [facility] [address]. Eugene Social History Smoking/Tobacco Use Status: Current every day Tobacco Type: cigarettes Alcohol Intake: current Alcohol Intake frequency: a few times a month Drug use: Daily Substance use type: marijuana Do you feel safe at home: Yes Do you feel safe in your relationship?: Yes Female Reproductive History Menstrual control method: permanent sterilization (tubal 10/2018) History History 2 Para Hx # Term Pregnancies Multiple births Hx # Pregnancies Ectopic pregnancies AB induced Hx Number of Living Children AB spontaneous Exam Narrative Exam Narrative: CONST: Healthy appearing patient, in no acute distress. Well hydrated. Alert and alert. HENMT: Head nomocephalic, normal to inspection. Atraumatic. Hearing grossly normal. Ear tube in place and right TM with no significant drainage. Left TM with effusion present without obvious bulging, minimal erythema. No loss of landmarks EYES: General normal appearance. Alignment normal. Eyelids normal. Conjunctiva normal. NECK: Normal visual inspection. FROM. Trachea midline. No Midline tenderness. CHEST: Normal insepection of the chest. RESP: Normal respiratory effort. Speaking full sentences. No cough. Mild wheezing on breath sounds, diffuse and scattered. No retractions. CARDIO: No JVD. No murmurs or rubs. MUSCULOSKELETAL: Normal Gait. SKIN: Normal. Dry. No rashes. NEURO: Alert and awake. Speech clear. PSYCH: Normal affect. Cooperative. Course Vital Signs Vital signs: Vital Signs Temperature 36.5 C 07/06/19 15:05 Pulse 66 07/06/19 15:05 Respiratory Rate 20 07/06/19 15:05 Blood Pressure 110/62 07/06/19 15:05 Pulse Oximetry 96 07/06/19 15:05 Temperature 36.5 C 07/06/19 15:05 Pulse 66 07/06/19 15:05 Respiratory Rate 20 07/06/19 15:05 Respiratory Effort 07/06/19 15:11 Blood Pressure 110/62 07/06/19 15:05 Blood Pressure Position Sitting 07/06/19 15:05 Pulse Oximetry 96 07/06/19 15:05 Oxygen Delivery Method Room Air 07/06/19 15:05 Oxygen Flow Rate 0 07/06/19 15:05 Comment 07/06/19 15:05
== END 2019-07-06 16:30 | disposition home or self-care (01) ==
PROVIDERS: Emergency Provider Physician Assistant; PCP Internal Medicine
DX: H65.192 Other acute nonsuppurative otitis media, left ear (principal)
CPT/HCPCS: 99283

== ENCOUNTER 2019-08-16 10:10 | Outpatient (CLI) | payer MEDICAID, SELFPAY ==
[2019-08-16 11:52] LABS: TSH 9.01 uIU/mL (0.36-3.74)
== END 2019-08-16 10:30 ==
PROVIDERS: PCP Internal Medicine; Visit Provider Internal Medicine
DX: E03.9 Hypothyroidism, unspecified (principal)
CPT/HCPCS: 36415; 84443

== ENCOUNTER 2020-05-06 14:40 | Outpatient (CLI) | payer MEDICAID, SELFPAY ==
[2020-05-06 16:19] LABS: TSH (W/Ref FT4) 3.03 uIU/mL (0.36-3.74)
== END 2020-05-06 15:00 ==
PROVIDERS: Nurse Practitioner Women's Health; PCP Internal Medicine; Visit Provider Obstetrics & Gynecology
DX: R63.4 Abnormal weight loss (principal)
CPT/HCPCS: 36415; 84443

== ENCOUNTER 2020-05-06 15:17 | Outpatient (REF) | payer MEDICAID, SELFPAY ==
--- NOTE | 2020-05-06 14:30 | PAPFT_PTH ---
PATIENT: Nadeen Barraza LOC: [facility] U#:[id number] AGE/SX: 34/F ROOM: RE05/06/[address]: Liset Winston NP : 1985 BED: DIS: 05/06/2020 SPEC #: [id number] RECD: 05/06/20 17:20 STATUS: HERSON KABA #: [id number] SHAMAR: 05/06/20 14:[address]: Liset Winston NP DEPT: COUNTS INCLUDE 234 BEDS AT THE [facility] Cytology RECD BY: Iraida Siddiqui ENTERED: 05/06/20 17:20 SP TYPE: PAPFT OTHR DR: Deanna Jones Tissues: 1 - CX/ENDOCX FOR PAP SMEARS Procedures: PAP THIN PREP/UVM Screening HPV DNA PROBE Comments: [id number] (CHLAMYDIA/GC)
[2020-05-07 14:52] LABS: Chlamydia Result Negative (Negative); GC Result Negative (Negative)
== END 2020-05-06 15:37 ==
LOC: LBN 15:17
PROVIDERS: PCP Internal Medicine; Visit Provider Nurse Practitioner Women's Health
DX: R30.0 Dysuria (principal); Z11.3 Encounter for screening for infections with a predominantly sexual mode of transmission; Z12.4 Encounter for screening for malignant neoplasm of cervix
CPT/HCPCS: 87077; 87491; 87591; 88142; 87086; 87186; 87624

== ENCOUNTER 2021-03-11 01:17 | Outpatient (CLI) | payer MEDICAID, SELFPAY ==
--- NOTE | 2021-03-11 | DI.CT_ITS ---
Exam(s) CT TEMPORAL BONE W EXAM: CT TEMPORAL BONE W CLINICAL HISTORY: EUSTACHIAN TUBE DYSFUNCTION, H69.80. TECHNIQUE: Imaging Protocol: Axial computed tomography images with coronal and sagittal reformatted images were created and reviewed. CONTRAST MATERIAL: Intravenous: Omnipaque 350 Contrast volume:100 contrast route:IV - COMPARISON: CT CT neck w from 08/12/[address] neck w from 08/12/2018 FINDINGS: Right Temporal Bone: There is partial opacification of the right mastoid air cells. There is no bony destruction. The ex ternal auditory canal appears clear. Left Temporal Bone: There is near complete opacification of the mastoid air cells. There is no bony destruction. A 0sma ll density is noted at the left tympanic membrane. There is a small amount of increased density arou nd the ossicles. No gross evidence of a rosea in. The external auditory canal appears clear. . The visualized portions of the brain are unremarkable. The sinuses appear clear. The orbits are unremarkable. The temporomandibular joints appear intact. The parotid glands are unremarkable bilat erally. IMPRESSION: Bilateral opacification of the mastoid air cells, left greater than right. No bony destruction. RADIATION DOSE DELIVERED: 887.9mGy.cm Total DLP DATA REPOSITORY: All CT scans at this facility are submitted to the National Radiology Data Registry (NRDR) Dose Index Registry (DIR) with the [employer] (A[employer]). RADIATION OPTIMIZATION: All CT scans at this facility use at least one of these dose optimization te chniques: automated exposure control; mA and/or kV adjustment per patient size (includes targeted exa ms where dose is matched to clinical indication); or iterative reconstruction.
[2021-03-11] MEDS: Omnipaque 350 MG/ML 100 ML BTL IV (12:53)
[2021-03-11] MEDS: Normal Saline - Diluent 50 ML VIAL IV (12:53)
[2021-03-11] MEDS: Normal Saline Flush 10 ML SYR IVP (12:53)
== END 2021-03-11 01:37 ==
PROVIDERS: PCP Internal Medicine; Visit Provider Physician Assistant
DX: H69.83 Other specified disorders of Eustachian tube, bilateral (principal); H74.8X3 Other specified disorders of middle ear and mastoid, bilateral
CPT/HCPCS: 70481; J3490

== ENCOUNTER 2021-04-29 09:17 | Outpatient (CLI) | payer MEDICAID, SELFPAY ==
[2021-04-29 11:29] LABS: Abs Immature Grans 0.03 10^3/uL (0.0-0.06); Absolute Basophil Count 0.03 10^3/uL (0.0-0.2); Absolute Eosinophil Count 0.08 10^3/uL (0.0-0.7); Absolute Lymphocyte Count 1.81 10^3/uL (1.2-3.4); Absolute Monocyte Count 0.46 10^3/uL (0.1-0.8); Absolute Neutrophil Count 5.26 10^3/uL (1.2-6.7); Basophils % 0.4; HCT 32.1 % (36.0-46.0); HGB 9.7 g/dL (11.2-15.7); Immature Grans % 0.4; Lymphocytes % 23.6; MCH 24.2 pg (27.0-33.0); MCHC 30.2 % (32.0-36.0); MPV 11.5 fL (8.0-11.0); Neutrophils % 68.6; Nucleated RBC 0 %; Platelet Count 225 10^3/uL (130-400); RBC 4.01 10^6/uL (3.93-5.22); RDW 17.2 % (11.7-14.6); RDW-SD 50.9 fL; WBC 7.67 10^3/uL (4.4-10.8)
[2021-04-29 12:20] LABS: Hemoglobin A1C 5.6 % (<5.7)
[2021-04-29 15:30] LABS: ALT 20 U/L (14-59); AST 10 U/L (15-37); Albumin 3.4 g/dL (3.4-5.0); Alkaline Phosphatase 62 U/L (46-116); Anion Gap 10.8 mmol/L (3-11); BUN 12 mg/dL (7-18); Bilirubin, Total 0.1 mg/dL (0.2-1.0); CO2 24.2 mmol/L (21.0-32.0); CREATININE 0.7 mg/dL (0.55-1.02); Calcium 8.8 mg/dL (8.5-10.1); Chloride 105 mmol/L (98-107); Glucose 85 mg/dL (74-106); Potassium 4.2 mmol/L (3.5-5.1); Sodium 140 mmol/L (136-145); TSH 1.92 uIU/mL (0.36-3.74); Total Protein 6.8 g/dL (6.4-8.2)
[2021-04-30 16:39] LABS: Alternaria Tenuis IgE <0.35 kU/L; Aspergillus Fumigatus IgE <0.35 kU/L; Bermuda Grass IgE <0.35 kU/L; Cat Epithelium IgE <0.35 kU/L; Cladosporium IgE <0.35 kU/L; Cocklebur IgE <0.35 kU/L; Cockroach IgE <0.35 kU/L; Cottonwood IgE <0.35 kU/L; D Farinae IgE <0.35 kU/L; D Pteronyssinus IgE <0.35 kU/L; Dog Dander IgE <0.35 kU/L; Eastern Sycamore IgE <0.35 kU/L; Elm IgE <0.35 kU/L; Epicoccum purpurascens IgE <0.35 kU/L; Giant Ragweed IgE <0.35 kU/L; Lamb's Quarter IgE <0.35 kU/L; Oak IgE <0.35 kU/L; Penicillium chrysogenum IgE <0.35 kU/L; Red Sorrel IgE <0.35 kU/L; Rough Pigweed IgE <0.35 kU/L; Short Ragweed IgE <0.35 kU/L; Silver Birch IgE <0.35 kU/L; Stemphyllium IgE <0.35 kU/L; Timothy Grass IgE 1.81 kU/L; Walnut Tree IgE <0.35 kU/L
[2021-04-30 17:04] LABS: Wormwood IgE <0.35 kU/L
[2021-05-06 18:08] LABS: CLASS 0; Cedar Red IgE <0.10 kU/L (<0.35); Fusarium oxysporum/vasinfectum <0.35 kU/L (<0.35); Rhodotorula IgE <0.35 kU/L (<0.35)
== END 2021-04-29 09:18 | disposition home or self-care (01) ==
PROVIDERS: PCP Internal Medicine; Visit Provider Physician Assistant
DX: E03.9 Hypothyroidism, unspecified (principal); R73.01 Impaired fasting glucose; K21.9 Gastro-esophageal reflux disease without esophagitis; F31.9 Bipolar disorder, unspecified; F90.9 Attention-deficit hyperactivity disorder, unspecified type; F32.89 Other specified depressive episodes; G47.00 Insomnia, unspecified; J45.40 Moderate persistent asthma, uncomplicated; Z91.09 Other allergy status, other than to drugs and biological substances
CPT/HCPCS: 36415; 80053; 86003; 83036; 84443; 85025

== ENCOUNTER 2021-06-22 00:32 | Outpatient (CLI) | payer MEDICAID, SELFPAY ==
--- NOTE | 2021-06-22 | DI.US_ITS ---
Exam(s) US PELVIS TRANSVAGINAL EXAM: US PELVIS TRANSVAGINAL CLINICAL HISTORY: DYSMENORRHEA, MENORRHAGIA WITH REGULAR CYCLE, N94.6, N92.0 TECHNIQUE: Ultrasound of the pelvis was performed both transabdominal and transvaginal. COMPARISON: No exams were available for comparison FINDINGS: UTERUS: Patient has had 2 prior C-sections Measures 0.6 cm length x 4.9 cm AP x 6.5 cm wide. There are no uterine fibroids.Anterior myometrial scars are noted. Endometrial thickness measures 10 mm. There is small amount of fluid in the endometrial canal CERVIX: There are no obvious nabothian cysts. RIGHT OVARY: Measures 2.3 x 2.4 x 2.0 cm No significant cysts nor masses evident in the right ovary. LEFT OVARY: Measures 3.1 x 2.6 x 2.3 cm No significant cysts nor masses evident in the left ovary. CUL-DE-SAC: Small amount of free fluid IMPRESSION: 1. Slightly thickened endometrium and there is small amount of fluid in the endometrial cavity. Ante rior myometrial scars are noted. 2. No obvious abnormal adnexal masses. 3. Small amount of fluid in the cul-de-sac noted. DATA REPOSITORY:
== END 2021-06-22 00:52 ==
PROVIDERS: PCP Internal Medicine; Visit Provider Obstetrics & Gynecology
DX: N94.6 Dysmenorrhea, unspecified (principal); N92.0 Excessive and frequent menstruation with regular cycle
CPT/HCPCS: 76830; 76856

== ENCOUNTER 2022-05-15 13:22 | Outpatient (REF) | payer MEDICAID, SELFPAY | END 2022-05-15 13:23 | disposition home or self-care (01) | LOC: LBN 13:22 | PROVIDERS: PCP Internal Medicine; Visit Provider Nurse Practitioner Family | DX: L03.316 Cellulitis of umbilicus (principal) | CPT/HCPCS: 87070; 87205 ==

== ENCOUNTER 2022-07-28 03:23 | Outpatient (CLI) | payer MEDICAID, SELFPAY ==
[2022-07-28 10:19] LABS: Abs Immature Grans 0.05 10^3/uL (0.0-0.06); Absolute Basophil Count 0.04 10^3/uL (0.0-0.2); Absolute Eosinophil Count 0.13 10^3/uL (0.0-0.7); Absolute Lymphocyte Count 2.61 10^3/uL (1.2-3.4); Absolute Monocyte Count 0.57 10^3/uL (0.1-0.8); Absolute Neutrophil Count 4.44 10^3/uL (1.2-6.7); Basophils % 0.5; Eosinophils % 1.7; HCT 31.1 % (36.0-46.0); HGB 9.4 g/dL (11.2-15.7); Immature Grans % 0.6; Lymphocytes % 33.3; MCH 22.9 pg (27.0-33.0); MCHC 30.2 % (32.0-36.0); MCV 76 fL (80-95); MPV 10.6 fL (8.0-11.0); Monocytes % 7.3; Neutrophils % 56.6; Platelet Count 230 10^3/uL (130-400); RDW 18.9 % (11.7-14.6); RDW-SD 52.1 fL; WBC 7.84 10^3/uL (4.4-10.8)
[2022-07-28 10:28] LABS: Hemoglobin A1C 5.8 % (<5.7)
[2022-07-28 11:18] LABS: ALT 12 U/L (14-59); AST 13 U/L (15-37); Albumin 3.5 g/dL (3.4-5.0); Alkaline Phosphatase 66 U/L (46-116); Anion Gap 6.4 mmol/L (3-11); BUN 14 mg/dL (7-18); Bilirubin, Total 0.3 mg/dL (0.2-1.0); CO2 27.6 mmol/L (21.0-32.0); CREATININE 0.8 mg/dL (0.55-1.02); Calcium 8.8 mg/dL (8.5-10.1); Calculated LDL 113 mg/dL (<100); Chloride 103 mmol/L (98-107); Cholesterol 183 mg/dL (<200); Estimated GFR 97.87 (mL/min/1.73m2); Glucose 90 mg/dL (74-106); HDL Cholesterol 48 mg/dL (40-60); Sodium 137 mmol/L (136-145); Total Protein 7.3 g/dL (6.4-8.2); Triglyceride 113 mg/dL (<150)
== END 2022-07-28 03:24 | disposition home or self-care (01) ==
LOC: LBO 03:23
PROVIDERS: PCP Internal Medicine; Visit Provider Internal Medicine
DX: R73.01 Impaired fasting glucose (principal); Z13.220 Encounter for screening for lipoid disorders; Z00.00 Encounter for general adult medical examination without abnormal findings
CPT/HCPCS: 36415; 80053; 80061; 83036; 85025

== ENCOUNTER 2022-08-21 15:06 | Emergency (ER) | payer MEDICAID, SELFPAY ==
[2022-08-21 15:13] VITALS: BP 133/68; PULSE 63; RESP 16; TEMP 36.7; O2SAT 99
--- NOTE | 2022-08-21 15:25 | ED.GENADUL_ITS ---
Discharge Plan Disposition Patient Disposition: Home Condition: Stable Discharge Details Clinical Impression: Toothache Primary Care Provider: Deanna Jones ED Provider: Roseline Rico Home Meds and New Rx's Prescriptions: New clindamycin HCl 150 mg capsule 450 mg PO TID 7 Days Qty: 63 0RF Rx Instructions: Take 3 capsules three times a day x 7 days Continued dextroamphetamine-amphetamine [Adderall] 20 mg tablet 20 mg PO DAILY albuterol sulfate 8.5 GM HFA aerosol inhaler 1 - 2 puff Inhalation Q4H PRN budesonide-formoterol [Symbicort] 10.2 GM HFA aerosol inhaler 2 puff Inhalation BID Label Comments: Uncertain of dose levothyroxine 175 MCG tablet 175 mcg PO DAILY Qty: 90 1RF Rx Instructions: 1 tab by mouth daily citalopram [Celexa] 20 MG tablet 40 mg PO DAILY omeprazole magnesium [Prilosec OTC] 20 mg Tablet,Delayed Release (Dr/Ec) 40 mg PO DAILY No Action trazodone 50 mg tablet 200 mg PO QHS loratadine [Claritin] 10 mg tablet 10 mg PO DAILY Qty: 20 0RF Flonase Sensimist 27.5 mcg/actuation spray,suspension 2 spray CARY DAILY Qty: 5.9 0RF Rx Instructions: into each nostril Discharge Instructions Instructions: Toothache (ED) Additional Instructions: Please take the antibiotic with yogurt or probiotic as directed. Use the HurriCaine gel up to 3 times daily as needed for pain. Please see a dentist as soon as possible in the next 3 to 5 days. Please take Tylenol or Ibuprofen with food every 4-6 hours as needed for pain and swelling. Practice good oral hygiene brush teeth twice daily Follow up with primary care provider in 3-5 days. Return to ED sooner if any worsening or concerns. Increase oral fluids. Referrals: Deanna Jones [Primary Care Provider] - 5 days Medical Decision Making HurriCaine gel and clindamycin ordered. Sign Out No HPI General Mode of arrival: ambulatory . Date/Time Provider Initiated Documentation: 08/21/22 15:15 . Limitations to Documentation: no limitations . Information obtained by: patient, RN notes reviewed and old records reviewed . HPI Narrative: 37-year-old female presents to the ER with chief complaint of left lower molar tooth pain and gum swelling. Patient reports that approximately month ago she had a tooth break. She reports that for the last 3 days the pain is gotten worse and there is gingival swelling surrounding the area. She does have a broken tooth noted, surrounding gum swelling and tenderness with palpation. No area of fluctuance or abscess noted. No draining. Posterior oropharynx within normal limits. Past medical history includes TMJ, asthma, depression, she is a daily smoker, station tube dysfunction, hypothyroidism, obesity, chronic sinusitis. Related Data Home Medications Medication Instructions Recorded Confirmed albuterol sulfate 90 mcg/actuation 1 - 2 puff inhalation Q4H PRN 02/05/14 08/21/22 aerosol inhaler citalopram 20 mg tablet (Celexa) 40 mg PO DAILY 04/05/15 08/21/22 budesonide-formoterol HFA 80 2 puff inhalation BID 08/05/15 08/21/22 mcg-4.5 mcg/actuation aerosol inhaler (Symbicort) levothyroxine 175 mcg tablet 175 mcg PO DAILY #90 tab-caps 12/16/17 08/21/22 omeprazole magnesium 20 mg 40 mg PO DAILY 07/14/18 08/21/22 tablet,delayed release (Prilosec OTC) loratadine 10 mg tablet (Claritin) 10 mg PO DAILY #20 tabs 04/06/19 08/21/22 fluticasone furoate 27.5 2 spray intranasal DAILY #5.9 mL 07/06/19 08/21/22 mcg/actuation nasal spray,suspension (Flonase Sensimist) dextroamphetamine-amphetamine 20 20 mg PO DAILY 05/06/20 08/21/22 mg tablet (Adderall) trazodone 50 mg tablet 200 mg PO QHS 05/13/21 08/21/22 clindamycin HCl 150 mg capsule 450 mg PO TID 7 days #63 caps 08/21/22 Previous Rx's Medication Instructions Recorded levothyroxine 175 mcg tablet 175 mcg PO DAILY #90 tab-caps 12/16/17 loratadine 10 mg tablet (Claritin) 10 mg PO DAILY #20 tabs 04/06/19 fluticasone furoate 27.5 2 spray intranasal DAILY #5.9 mL 07/06/19 mcg/actuation nasal spray,suspension (Flonase Sensimist) clindamycin HCl 150 mg capsule 450 mg PO TID 7 days #63 caps 08/21/22 Allergies Allergy/AdvReac Type Severity Reaction Status Date / Time bupropion HCl Allergy Mild Skin Rash Verified 08/21/22 15:21 [From Wellbutrin] gabapentin Allergy Skin Rash Verified 08/21/22 15:21 Animal Dander Allergy Intermediate Runny Uncoded 08/21/22 15:21 nose, itchy eyes H1N1 vaccine Allergy Intermediate Hives Uncoded 08/21/22 15:21 General Stated Complaint: DentalOral AIDAN: 4 Review of Systems All systems reviewed & are unremarkable except as noted in HPI and below ENT Ears, Nose, Mouth, and Throat: Reports as per HPI, Denies change in voice and Reports dental pain PFSH All Active Problems (Updated 08/21/22 @ 15:32 by Roseline Rico NP) Toothache (Acute) Retraction of tympanic membrane of both ears (Acute) TMJ (temporomandibular joint disorder) (Acute) Chronic otitis media (Acute) Morbid (severe) obesity due to excess calories (Acute) Dysfunction of both eustachian tubes (Acute) Tobacco use (Acute) Chronic maxillary sinusitis (Acute) Conductive hearing loss of both ears (Acute) Anovulatory bleeding (Acute 09/04/14) Irregular menses (Acute 10/21/16) Recurrent loss (Acute 09/04/14) Medical History (Updated 08/21/22 @ 15:32 by Roseline Rico NP) Asthma Takes symbicort and flovent daily and albuterol PRN, managed by PCP Depression takes celexa and seroquel, managed by PCP Obesity, Class III, BMI 40-49.9 (morbid obesity) Smoker Surgical History section 2006, 2015 H/O tubal ligation 10/2018 [facility] [address]. Eugene History of placement of ear tubes Family History Mother No problems noted. Father , cirrhosis of liver No problems noted. Brother No problems noted. Social History Smoking/Tobacco Use Status: Current every day Tobacco Type: cigarettes Tobacco: How many years used: 20 Smoking risk assessment performed?: Yes Alcohol Intake: current Alcohol Intake frequency: a few times a month Drug use: Daily Substance use type: marijuana Do you feel safe at home: Yes Do you feel safe in your relationship?: Yes Female Reproductive History Menstrual control method: permanent sterilization History History 2 Para Hx # Term Pregnancies Multiple births Hx # Pregnancies Ectopic pregnancies AB induced Hx Number of Living Children AB spontaneous Exam HENMT Teeth and gingiva: gingiva abnormal edematous and tender and poor dentition Teeth image: 1. Broken molar with surrounding gingival swelling. Course Vital Signs Vital signs: Vital Signs Temperature 36.7 C 08/21/22 15:13 Pulse 63 08/21/22 15:13 Respiratory Rate 16 08/21/22 15:13 Blood Pressure 133/68 08/21/22 15:13 Pulse Oximetry 99 08/21/22 15:13 Temperature 36.7 C 08/21/22 15:13 Temperature Source Oral 08/21/22 15:13 Pulse 63 08/21/22 15:13 Respiratory Rate 16 08/21/22 15:13 Respiratory Effort Non-Labored 08/21/22 15:16 Blood Pressure 133/68 08/21/22 15:13 Blood Pressure Position Sitting 08/21/22 15:13 Pulse Oximetry 99 08/21/22 15:13 Oxygen Delivery Method Room Air 08/21/22 15:13 Oxygen Flow Rate 0 08/21/22 15:13 Pain Level 8 08/21/22 15:13
[2022-08-21] MEDS: Benzocaine 20% Gel 30 GM JAR MM (15:36)
[2022-08-21] MEDS: Clindamycin 150 MG CAP, 12 CAPS/BTL 450 MG PO (15:37)
[2022-08-21] MEDS: Clindamycin 150 MG CAP 450 MG PO (15:37)
[2022-08-21 15:38] VITALS: BP 139/79; PULSE 66; RESP 14; TEMP 37; O2SAT 99
== END 2022-08-21 15:45 | disposition home or self-care (01) ==
PROVIDERS: Emergency Provider Registered Nurse Emergency; PCP Internal Medicine
DX: K08.89 Other specified disorders of teeth and supporting structures (principal)
CPT/HCPCS: 99283

== ENCOUNTER 2023-02-03 20:59 | Emergency (ER) | payer MEDICAID, SELFPAY ==
[2023-02-03 21:15] VITALS: BP 106/62; PULSE 69; RESP 16; TEMP 35.8; O2SAT 98
--- NOTE | 2023-02-03 21:32 | W.ED.GENAD ---
Discharge Plan Disposition Patient Disposition: Home Discharge Details Clinical Impression: Abrasion, Hematoma and contusion Primary Care Provider: Deanna Jones ED Provider: Adan Paredes Home Meds and New Rx's Prescriptions: Continued trazodone 50 mg tablet 200 mg PO QHS dextroamphetamine-amphetamine [Adderall] 20 mg tablet 20 mg PO DAILY albuterol sulfate 8.5 GM HFA aerosol inhaler 1 - 2 puff Inhalation Q4H PRN budesonide-formoterol [Symbicort] 10.2 GM HFA aerosol inhaler 2 puff Inhalation BID Patient Comments: Uncertain of dose levothyroxine 175 MCG tablet 175 mcg PO DAILY Qty: 90 1RF Rx Instructions: 1 tab by mouth daily citalopram [Celexa] 20 MG tablet 40 mg PO DAILY loratadine [Claritin] 10 mg tablet 10 mg PO DAILY Qty: 20 0RF omeprazole magnesium [Prilosec OTC] 20 mg Tablet,Delayed Release (Dr/Ec) 40 mg PO DAILY Flonase Sensimist 27.5 mcg/actuation spray,suspension 2 spray CARY DAILY Qty: 5.9 0RF Rx Instructions: into each nostril Discharge Instructions Instructions: Abrasion (ED), Hematoma (ED) Additional Instructions: Please continue to monitor wound for any signs of infection and return immediately if these occur otherwise you may use topical antibiotic ointment twice a day for the next 3 days then keep wound open to air clean and dry. Please follow-up with your primary care provider as needed for reassessment. Referrals: Deanna Jones [Primary Care Provider] - (As needed for reassessment) Discharge Data Discharge Date/Time-TO BE ENTERED AT DEPARTURE: 02/03/23 21:55 Medical Decision Making Superficial abrasion and contusion/hematoma to right inner thigh. Exam otherwise unremarkable. Patient concerned about tetanus and does not know when she last got a tetanus so we did give patient an updated tetanus booster otherwise standard acute wound management for superficial injury was discussed with patient. After discussion of diagnosis and plan of care patient has no further needs, questions, or concerns and states clear understanding to return to the emergency department for any worsening symptoms. This documentation was generated using [employer] system, please disregard any oddities of phrase or misspellings. HPI General Mode of arrival: ambulatory. Date/Time Provider Initiated Documentation: 02/03/23 21:15. Limitations to Documentation: no limitations. Information obtained by: patient and RN notes reviewed. History of Present Illness 37 year old F presents to the emergency department with the chief complaint of Right thigh injury, described as mild, and is localized to the right and lower extremity. Patient started experiencing this day(s) (1) and it has been constant. No relieving factors improve symptom(s), No exacerbating factors reported . Patient notes no other symptoms.. Patient did receive the following treatments prior to arrival, none Related Data Home Medications Medication Instructions Recorded Confirmed albuterol sulfate 90 mcg/actuation 1 - 2 puff inhalation Q4H PRN 02/05/14 02/03/23 aerosol inhaler citalopram 20 mg tablet (Celexa) 40 mg PO DAILY 04/05/15 02/03/23 budesonide-formoterol HFA 80 2 puff inhalation BID 08/05/15 02/03/23 mcg-4.5 mcg/actuation aerosol inhaler (Symbicort) levothyroxine 175 mcg tablet 175 mcg PO DAILY #90 tab-caps 12/16/17 02/03/23 omeprazole magnesium 20 mg 40 mg PO DAILY 07/14/18 02/03/23 tablet,delayed release (Prilosec OTC) loratadine 10 mg tablet (Claritin) 10 mg PO DAILY #20 tabs 04/06/19 02/03/23 fluticasone furoate 27.5 2 spray intranasal DAILY #5.9 mL 07/06/19 02/03/23 mcg/actuation nasal spray,suspension (Flonase Sensimist) dextroamphetamine-amphetamine 20 20 mg PO DAILY 05/06/20 02/03/23 mg tablet (Adderall) trazodone 50 mg tablet 200 mg PO QHS 05/13/21 02/03/23 Previous Rx's Medication Instructions Recorded levothyroxine 175 mcg tablet 175 mcg PO DAILY #90 tab-caps 12/16/17 loratadine 10 mg tablet (Claritin) 10 mg PO DAILY #20 tabs 04/06/19 fluticasone furoate 27.5 2 spray intranasal DAILY #5.9 mL 07/06/19 mcg/actuation nasal spray,suspension (Flonase Sensimist) Allergies Allergy/AdvReac Type Severity Reaction Status Date / Time bupropion HCl Allergy Mild Skin Rash Verified 02/03/23 21:20 [From Wellbutrin] gabapentin Allergy Skin Rash Verified 02/03/23 21:20 Animal Dander Allergy Intermediate Runny Uncoded 02/03/23 21:20 nose, itchy eyes H1N1 vaccine Allergy Intermediate Hives Uncoded 02/03/23 21:20 General Stated Complaint: Laceration AIDAN: 4 Review of Systems Constitutional Constitutional: Denies fever(s) and Denies weakness Musculoskeletal Musculoskeletal: Reports as per HPI Integumentary/Breasts Skin/Breast: Reports unusual bruising Neurologic Neurologic: Denies paresthesias and Denies weakness [facility] All Active Problems (Updated 02/04/23 @ 12:09 by Katie Florez) Conductive hearing loss (Acute) Abrasion (Acute) Hematoma and contusion (Acute) Myringotomy tube status (Acute) Retraction of tympanic membrane of both ears (Acute) TMJ (temporomandibular joint disorder) (Acute) Chronic otitis media (Acute) Morbid (severe) obesity due to excess calories (Acute) Dysfunction of both eustachian tubes (Acute) Tobacco use (Acute) Chronic maxillary sinusitis (Acute) Conductive hearing loss of both ears (Acute) Anovulatory bleeding (Acute 09/04/14) Irregular menses (Acute 10/21/16) Recurrent loss (Acute 09/04/14) Medical History (Updated 02/04/23 @ 12:09 by Katie Florez) Asthma Takes symbicort and flovent daily and albuterol PRN, managed by PCP Depression takes celexa and seroquel, managed by PCP Obesity, Class III, BMI 40-49.9 (morbid obesity) Smoker Surgical History section 2006, 2015 H/O tubal ligation 10/[address] [facility] [address] Eugene History of placement of ear tubes Family History Mother No problems noted. Father , cirrhosis of liver No problems noted. Brother No problems noted. Social History Smoking/Tobacco Use Status: Current every day Tobacco Type: cigarettes Tobacco: How many years used: 20 Smoking risk assessment performed?: Yes Alcohol Intake: current Alcohol Intake frequency: a few times a month Drug use: Daily Substance use type: marijuana Do you feel safe at home: Yes Do you feel safe in your relationship?: Yes Female Reproductive History Menstrual control method: permanent sterilization History History 2 Para Hx # Term Pregnancies Multiple births Hx # Pregnancies Ectopic pregnancies AB induced Hx Number of Living Children AB spontaneous Exam Const General: cooperative, no acute distress and not ill appearing Orientation: alert, awake and oriented x3 HENMT Mouth: moist mucous membranes Resp Effort & Inspection: normal respiratory effort, able to speak in complete sentences and no respiratory distress Skin General skin exam: no rashes or lesions noted Neuro General: patient alert, patient awake, patient oriented x3, moves all extremities and no focal motor deficits Extrem General: normal exam except as noted Right lower extremity: full ROM, normal capillary refill, no joint enlargement and hip/thigh Details: abrasion proximal upper leg medial Details: single and ecchymosis proximal upper leg medial Details: single Course Vital Signs Vital signs: Vital Signs Temperature 35.8 C L 02/03/23 21:15 Pulse 69 02/03/23 21:15 Respiratory Rate 16 02/03/23 21:15 Blood Pressure 106/62 02/03/23 21:15 Pulse Oximetry 98 02/03/23 21:15 Temperature 35.8 C L 02/03/23 21:15 Temperature Source Temporal Artery Scan 02/03/23 21:15 Pulse 69 02/03/23 21:15 Respiratory Rate 16 02/03/23 21:15 Respiratory Effort Normal 02/03/23 21:15 Blood Pressure 106/62 02/03/23 21:15 Blood Pressure Position Sitting 02/03/23 21:15 Pulse Oximetry 98 02/03/23 21:15 Oxygen Delivery Method Room Air 02/03/23 21:15 Oxygen Flow Rate 0 02/03/23 21:15 Pain Level 0 02/03/23 21:15
== END 2023-02-03 21:55 | disposition home or self-care (01) ==
PROVIDERS: Emergency Provider Nurse Practitioner Family; PCP Internal Medicine
DX: S70.311A Abrasion, right thigh, initial encounter (principal); W45.8XXA Other foreign body or object entering through skin, initial encounter; Z59.00 Homelessness unspecified
CPT/HCPCS: 90471; 99284; 99283

== ENCOUNTER 2023-02-08 18:11 | Emergency (ER) | payer MEDICAID, SELFPAY ==
[2023-02-08 18:12] VITALS: BP 129/75; PULSE 79; RESP 18; TEMP 37.1; O2SAT 99
--- NOTE | 2023-02-08 18:34 | W.ED.GENAD ---
Discharge Plan Disposition Patient Disposition: Home Discharge Details Clinical Impression: Abscess, dental Primary Care Provider: Deanna Jones ED Provider: Nathaly Webber Home Meds and New Rx's Prescriptions: New clindamycin HCl [Cleocin HCl] 300 mg capsule 300 mg PO Q6H 7 Days Qty: 28 0RF No Action trazodone 50 mg tablet 200 mg PO QHS dextroamphetamine-amphetamine [Adderall] 20 mg tablet 20 mg PO DAILY albuterol sulfate 8.5 GM HFA aerosol inhaler 1 - 2 puff Inhalation Q4H PRN budesonide-formoterol [Symbicort] 10.2 GM HFA aerosol inhaler 2 puff Inhalation BID Patient Comments: Uncertain of dose levothyroxine 175 MCG tablet 175 mcg PO DAILY Qty: 90 1RF Rx Instructions: 1 tab by mouth daily citalopram [Celexa] 20 MG tablet 40 mg PO DAILY loratadine [Claritin] 10 mg tablet 10 mg PO DAILY Qty: 20 0RF omeprazole magnesium [Prilosec OTC] 20 mg Tablet,Delayed Release (Dr/Ec) 40 mg PO DAILY Flonase Sensimist 27.5 mcg/actuation spray,suspension 2 spray CARY DAILY Qty: 5.9 0RF Rx Instructions: into each nostril Discharge Instructions Instructions: Dental Abscess (ED) Additional Instructions: Take antibiotics as prescribed. Follow-up with dentist. Referrals: Deanna Jones [Primary Care Provider] - 5 days Discharge Data Discharge Physician: Nathaly Webber Medical Decision Making Patient most likely has an uncomplicated dental abscess. No evidence of deep space infection. Will discharge home on antibiotics. She will follow up with dentist ROCIO. Return to ED for worsening facial swelling, high fevers, difficulty swallowing, difficulty breathing. HPI General Date/Time Provider Initiated Documentation: 02/08/23 18:20. HPI Narrative: 37-year-old female presents for evaluation of left lower dental pain. Patient states that she been having difficulty with a broken tooth over the last year. She has had several infections. Last antibiotic use was 2 months ago. She believes she took clindamycin at that time. She had increased pain over the last several days. Denies any fevers or chills. No difficulty swallowing. Related Data Home Medications Medication Instructions Recorded Confirmed albuterol sulfate 90 mcg/actuation 1 - 2 puff inhalation Q4H PRN 02/05/14 02/08/23 aerosol inhaler citalopram 20 mg tablet (Celexa) 40 mg PO DAILY 04/05/15 02/08/23 budesonide-formoterol HFA 80 2 puff inhalation BID 08/05/15 02/08/23 mcg-4.5 mcg/actuation aerosol inhaler (Symbicort) levothyroxine 175 mcg tablet 175 mcg PO DAILY #90 tab-caps 12/16/17 02/08/23 omeprazole magnesium 20 mg 40 mg PO DAILY 07/14/18 02/08/23 tablet,delayed release (Prilosec OTC) loratadine 10 mg tablet (Claritin) 10 mg PO DAILY #20 tabs 04/06/19 02/08/23 fluticasone furoate 27.5 2 spray intranasal DAILY #5.9 mL 07/06/19 02/08/23 mcg/actuation nasal spray,suspension (Flonase Sensimist) dextroamphetamine-amphetamine 20 20 mg PO DAILY 05/06/20 02/08/23 mg tablet (Adderall) trazodone 50 mg tablet 200 mg PO QHS 05/13/21 02/08/23 clindamycin HCl 300 mg capsule 300 mg PO Q6H 7 days #28 caps 02/08/23 (Cleocin HCl) Previous Rx's Medication Instructions Recorded levothyroxine 175 mcg tablet 175 mcg PO DAILY #90 tab-caps 12/16/17 loratadine 10 mg tablet (Claritin) 10 mg PO DAILY #20 tabs 04/06/19 fluticasone furoate 27.5 2 spray intranasal DAILY #5.9 mL 07/06/19 mcg/actuation nasal spray,suspension (Flonase Sensimist) clindamycin HCl 300 mg capsule 300 mg PO Q6H 7 days #28 caps 02/08/23 (Cleocin HCl) Allergies Allergy/AdvReac Type Severity Reaction Status Date / Time bupropion HCl Allergy Mild Skin Rash Verified 02/08/23 18:17 [From Wellbutrin] gabapentin Allergy Skin Rash Verified 02/08/23 18:17 Animal Dander Allergy Intermediate Runny Uncoded 02/08/23 18:17 nose, itchy eyes H1N1 vaccine Allergy Intermediate Hives Uncoded 02/08/23 18:17 General Stated Complaint: DentalOral AIDAN: 4 PFSH All Active Problems Abscess, dental (Acute) Conductive hearing loss (Acute) Abrasion (Acute) Hematoma and contusion (Acute) Myringotomy tube status (Acute) Retraction of tympanic membrane of both ears (Acute) TMJ (temporomandibular joint disorder) (Acute) Chronic otitis media (Acute) Morbid (severe) obesity due to excess calories (Acute) Dysfunction of both eustachian tubes (Acute) Tobacco use (Acute) Chronic maxillary sinusitis (Acute) Conductive hearing loss of both ears (Acute) Anovulatory bleeding (Acute 09/04/14) Irregular menses (Acute 10/21/16) Recurrent loss (Acute 09/04/14) Medical History Asthma Takes symbicort and flovent daily and albuterol PRN, managed by PCP Depression takes celexa and seroquel, managed by PCP Obesity, Class III, BMI 40-49.9 (morbid obesity) Smoker Surgical History section 2006, 2015 H/O tubal ligation 10/[address] [facility] Dr. Eugene History of placement of ear tubes Family History Mother No problems noted. Father , cirrhosis of liver No problems noted. Brother No problems noted. Social History Smoking/Tobacco Use Status: Current every day Tobacco Type: cigarettes Tobacco: How many years used: 20 Smoking risk assessment performed?: Yes Alcohol Intake: current Alcohol Intake frequency: a few times a month Drug use: Daily Substance use type: marijuana Do you feel safe at home: Yes Do you feel safe in your relationship?: Yes Female Reproductive History Menstrual control method: permanent sterilization History History 2 Para Hx # Term Pregnancies Multiple births Hx # Pregnancies Ectopic pregnancies AB induced Hx Number of Living Children AB spontaneous Exam Narrative Exam Narrative: General: non-toxic, no respiratory distress, comfortable HEENT: normocephalic, atraumatic, lids and lashes normal, PERRL, EOMI, anicteric sclera, no conjunctival injection, moist mucous membranes, no erythema, tenderness to palpation over tooth #20 which is broken, no palpable area of fluctuance, no visible abscess, no hoarseness, stridor or drooling, no trismus. Patient is maintaining own secretions just fine. Uvula is midline, no peritonsilar abscess. Musculoskeletal: full range of motion of arms and legs, no tenderness to palpation. no clubbing, cyanosis, or edema Neurologic: appropriate for age, strength normal Psych: alert and oriented Skin: no petechiae, no lesions, warm and dry Course Vital Signs Vital signs: Vital Signs Temperature 37.1 C 02/08/23 18:12 Pulse 79 02/08/23 18:12 Respiratory Rate 18 02/08/23 18:12 Blood Pressure 129/75 02/08/23 18:12 Pulse Oximetry 99 02/08/23 18:12 Temperature 37.1 C 02/08/23 18:12 Temperature Source Skin 02/08/23 18:12 Pulse 79 02/08/23 18:12 Respiratory Rate 18 02/08/23 18:12 Respiratory Effort Normal 02/08/23 18:16 Blood Pressure 129/75 02/08/23 18:12 Blood Pressure Position Sitting 02/08/23 18:12 Pulse Oximetry 99 02/08/23 18:12 Oxygen Delivery Method Room Air 02/08/23 18:12 Oxygen Flow Rate 0 02/08/23 18:12 Pain Level 6 02/08/23 18:19
[2023-02-08] MEDS: Clindamycin 300 MG CAP PO (18:43)
== END 2023-02-08 18:43 | disposition home or self-care (01) ==
PROVIDERS: Emergency Provider Emergency Medicine Emergency Medical Services; PCP Internal Medicine
DX: R68.84 Jaw pain (principal)
CPT/HCPCS: 99283

== ENCOUNTER 2023-03-30 15:12 | Outpatient (REF) | payer MEDICAID, SELFPAY | END 2023-03-30 15:13 | disposition home or self-care (01) | LOC: LBN 15:12 | PROVIDERS: PCP Internal Medicine; Visit Provider Advanced Practice Midwife | DX: N89.8 Other specified noninflammatory disorders of vagina (principal) | CPT/HCPCS: 87480; 87510; 87660 ==

== ENCOUNTER 2023-04-06 02:47 | Outpatient (CLI) | payer MEDICAID, SELFPAY ==
[2023-04-06 16:42] LABS: Abs Immature Grans 0.04 10^3/uL (0.0-0.06); Absolute Basophil Count 0.06 10^3/uL (0.0-0.2); Absolute Eosinophil Count 0.13 10^3/uL (0.0-0.7); Absolute Lymphocyte Count 2.79 10^3/uL (1.2-3.4); Absolute Monocyte Count 0.64 10^3/uL (0.1-0.8); Absolute Neutrophil Count 5.86 10^3/uL (1.2-6.7); Basophils % 0.6; Eosinophils % 1.4; HCT 33.2 % (36.0-46.0); HGB 10.3 g/dL (11.2-15.7); Immature Grans % 0.4; Lymphocytes % 29.3; MCH 23.5 pg (27.0-33.0); MCV 76 fL (80-95); MPV 12.1 fL (8.0-11.0); Monocytes % 6.7; Neutrophils % 61.6; Platelet Count 240 10^3/uL (130-400); RBC 4.38 10^6/uL (3.93-5.22); RDW 18.7 % (11.7-14.6); RDW-SD 51.5 fL; WBC 9.52 10^3/uL (4.4-10.8)
[2023-04-06 17:12] LABS: ALT 13 U/L (14-59); AST 13 U/L (15-37); Albumin 3.7 g/dL (3.4-5.0); Alkaline Phosphatase 63 U/L (46-116); Anion Gap 9.8 mmol/L (3-11); BUN 16 mg/dL (7-18); Bilirubin, Total 0.3 mg/dL (0.2-1.0); CO2 27.2 mmol/L (21.0-32.0); CREATININE 0.9 mg/dL (0.55-1.02); Calcium 8.9 mg/dL (8.5-10.1); Chloride 103 mmol/L (98-107); Estimated GFR 84.97 (mL/min/1.73m2); Glucose 90 mg/dL (74-106); Potassium 4.5 mmol/L (3.5-5.1); Sodium 140 mmol/L (136-145); TSH 1.33 uIU/mL (0.36-3.74)
[2023-04-06 17:22] LABS: Hemoglobin A1C 5.5 % (<5.7)
== END 2023-04-06 02:48 | disposition home or self-care (01) ==
PROVIDERS: PCP Internal Medicine; Visit Provider Internal Medicine
DX: R73.01 Impaired fasting glucose (principal); E03.9 Hypothyroidism, unspecified; M54.89 Other dorsalgia; D64.9 Anemia, unspecified
CPT/HCPCS: 36415; 80053; 83036; 84443; 85025

== ENCOUNTER 2023-04-13 09:55 | Outpatient (CLI) | payer MEDICAID, SELFPAY ==
[2023-04-13 14:08] LABS: Iron 30 ug/dL (50-170)
[2023-04-13 14:35] LABS: Ferritin 7 ng/mL (8-252); Folate 8.9 ng/mL (8.6-20.0); Vitamin B12 450 pg/mL (193-986)
== END 2023-04-13 09:56 | disposition home or self-care (01) ==
LOC: LBO 09:55
PROVIDERS: PCP Internal Medicine; Visit Provider Internal Medicine
DX: D64.9 Anemia, unspecified (principal); M54.89 Other dorsalgia; Z86.39 Personal history of other endocrine, nutritional and metabolic disease
CPT/HCPCS: 36415; 82607; 82728; 82746; 83540

== ENCOUNTER 2023-05-08 09:42 | Emergency (ER) | payer MEDICAID, SELFPAY ==
[2023-05-08 09:46] VITALS: BP 128/65; PULSE 65; RESP 18; TEMP 36.7; O2SAT 99
[2023-05-08 10:13] VITALS: RESP 18
--- NOTE | 2023-05-08 10:16 | W.ED.GENAD ---
Discharge Plan Disposition Patient Disposition: Home Condition: Good Discharge Details Clinical Impression: Upper respiratory infection Primary Care Provider: Deanna Jones ED Provider: Lilo Mosquera Home Meds and New Rx's Prescriptions: Continued trazodone 50 mg tablet 200 mg PO QHS dextroamphetamine-amphetamine [Adderall] 20 mg tablet 20 mg PO DAILY albuterol sulfate 8.5 GM HFA aerosol inhaler 1 - 2 puff Inhalation Q4H PRN budesonide-formoterol [Symbicort] 10.2 GM HFA aerosol inhaler 2 puff Inhalation BID Patient Comments: Uncertain of dose levothyroxine 175 MCG tablet 175 mcg PO DAILY Qty: 90 1RF Rx Instructions: 1 tab by mouth daily citalopram [Celexa] 20 MG tablet 40 mg PO DAILY omeprazole magnesium [Prilosec OTC] 20 mg Tablet,Delayed Release (Dr/Ec) 40 mg PO DAILY Flonase Sensimist 27.5 mcg/actuation spray,suspension 2 spray CARY DAILY Qty: 5.9 0RF Rx Instructions: into each nostril No Action metronidazole 500 mg tablet 500 mg PO BID Qty: 14 0RF Discharge Instructions Instructions: Upper Respiratory Infection (ED) Additional Instructions: Please continue to use albuterol and flonase at home. Limit the flonase to once a day. You can use Afrin spray for the next 5 days to help with congestion; follow the directions on the bottle. Take tylenol and/or ibuprofen over the counter as needed for discomfort or fever, follow the directions on the bottle. Call your primary care doctor on Tuesday to schedule an appointment to followup on your visit today. Return to the emergency department for new or worsening symptoms, including difficultly breathing that does not respond to home treatment, or if you have any other concerns. Referrals: Deanna Jones [Primary Care Provider] - Medical Decision Making 37yo F with hypothyroid, environmental allergies, asthma, presenting with two days of cough and nasal congestion which have been interfering with sleep. Vital signs reassuring, on exam she has slight expiratory wheezes with no increased work of breathing. Well appearing and afebrile, family also with similar symptoms. At this time I am not concerned for sepsis, serious bacterial infection, respiratory failure, pneumonia, significant asthma exacerbation, bacterial sinusitis, or acute coronary syndromes. Given albuterol puffs and oxymetazoline spray in the ED and advised symptomatic treatment at home for presumed viral upper respiratory infection. Reviewed appropriate use of nasal sprays. Discharged home; discharge instructions including return precautions were reviewed with patient who verbalized understanding. All questions were answered and they are in full agreement with the plan. HPI General Mode of arrival: ambulatory. Date/Time Provider Initiated Documentation: 05/08/23 09:54. Limitations to Documentation: no limitations. Information obtained by: patient. HPI Narrative: 37yo F with hypothyroid, environmental allergies, asthma, presenting with two days of cough and nasal congestion. Rhinnorhea has been making it difficult to sleep and she has needed to sleep somewhat elevated. + cough, chest discomfort when coughing. Cough productive of thin clear sputum. Typically uses flonase once a day, has increased to 4-5/day for the past two days without improvement. Father and mother also have similar URI symptoms. No fevers, chills, rash, dyspnea, pleurtic pain, LE edema, or other concerns. She is otherwise in her usual state of health. Related Data Home Medications Medication Instructions Recorded Confirmed albuterol sulfate 90 mcg/actuation 1 - 2 puff inhalation Q4H PRN 02/05/14 05/08/23 aerosol inhaler citalopram 20 mg tablet (Celexa) 40 mg PO DAILY 04/05/15 05/08/23 budesonide-formoterol HFA 80 2 puff inhalation BID 08/05/15 05/08/23 mcg-4.5 mcg/actuation aerosol inhaler (Symbicort) levothyroxine 175 mcg tablet 175 mcg PO DAILY #90 tab-caps 12/16/17 05/08/23 omeprazole magnesium 20 mg 40 mg PO DAILY 07/14/18 05/08/23 tablet,delayed release (Prilosec OTC) fluticasone furoate 27.5 2 spray intranasal DAILY #5.9 mL 07/06/19 05/08/23 mcg/actuation nasal spray,suspension (Flonase Sensimist) dextroamphetamine-amphetamine 20 20 mg PO DAILY 05/06/20 05/08/23 mg tablet (Adderall) trazodone 50 mg tablet 200 mg PO QHS 05/13/21 05/08/23 metronidazole 500 mg tablet 500 mg PO BID #14 tabs 03/30/23 05/08/23 Previous Rx's Medication Instructions Recorded levothyroxine 175 mcg tablet 175 mcg PO DAILY #90 tab-caps 12/16/17 fluticasone furoate 27.5 2 spray intranasal DAILY #5.9 mL 07/06/19 mcg/actuation nasal spray,suspension (Flonase Sensimist) metronidazole 500 mg tablet 500 mg PO BID #14 tabs 03/30/23 Allergies Allergy/AdvReac Type Severity Reaction Status Date / Time bupropion HCl Allergy Mild Skin Rash Verified 05/08/23 09:50 [From Wellbutrin] gabapentin Allergy Skin Rash Verified 05/08/23 09:50 Animal Dander Allergy Intermediate Runny Uncoded 05/08/23 09:50 nose, itchy eyes H1N1 vaccine Allergy Intermediate Hives Uncoded 05/08/23 09:50 General Stated Complaint: GenMedical AIDAN: 4 Review of Systems Narrative: see HPI PFSH All Active Problems (Updated 05/08/23 @ 10:20 by Lilo Mosquera MD) Upper respiratory infection (Acute) Trichomonas infection (Acute) treated 03/30/23 Vaginal discharge (Acute) Pelvic pain (Acute) Conductive hearing loss (Acute) Myringotomy tube status (Acute) Retraction of tympanic membrane of both ears (Acute) TMJ (temporomandibular joint disorder) (Acute) Chronic otitis media (Acute) Morbid (severe) obesity due to excess calories (Acute) Dysfunction of both eustachian tubes (Acute) Tobacco use (Acute) Chronic maxillary sinusitis (Acute) Conductive hearing loss of both ears (Acute) Anovulatory bleeding (Acute 09/04/14) Irregular menses (Acute 10/21/16) Recurrent loss (Acute 09/04/14) Medical History (Updated 05/08/23 @ 10:20 by Lilo Mosquera MD) Asthma Takes symbicort and flovent daily and albuterol PRN, managed by PCP Depression takes celexa and seroquel, managed by PCP Obesity, Class III, BMI 40-49.9 (morbid obesity) Smoker Surgical History section 2006, 2015 H/O tubal ligation 10/[address] [facility] [address] Eugene History of placement of ear tubes Family History Mother No problems noted. Father , cirrhosis of liver No problems noted. Brother No problems noted. Social History Smoking/Tobacco Use Status: Current every day Tobacco Type: cigarettes Tobacco: How many years used: 20 Smoking risk assessment performed?: Yes Alcohol Intake: current Alcohol Intake frequency: a few times a month Drug use: Daily Substance use type: marijuana Do you feel safe at home: Yes Do you feel safe in your relationship?: Yes Female Reproductive History Menstrual control method: permanent sterilization History History 2 Para Hx # Term Pregnancies Multiple births Hx # Pregnancies Ectopic pregnancies AB induced Hx Number of Living Children AB spontaneous Exam Narrative Exam Narrative: General: Alert, well appearing, well nourished, in no acute distress. Head: Normocephalic, atraumatic Neck: Trachea midline, Neck supple. ENT: MMM. Minimal tenderness to palapation of maxillary sinuses. Cardiac: RRR, no murmurs appreciated Resp: No respiratory distress. Slight expiratory wheeze. Abd: Non-distended Extremities: No deformities. No peripheral edema. Neurologic: GCS 15. Moves all extremities freely against gravity Course Vital Signs Vital signs: Vital Signs Temperature 36.7 C 05/08/23 09:46 Pulse 65 05/08/23 09:46 Respiratory Rate 18 05/08/23 09:46 Blood Pressure 128/65 05/08/23 09:46 Pulse Oximetry 99 05/08/23 09:46 Temperature 36.7 C 05/08/23 09:46 Temperature Source Temporal Artery Scan 05/08/23 09:46 Pulse 65 05/08/23 09:46 Respiratory Rate 18 05/08/23 10:13 Respiratory Effort Normal, Non-Labored 05/08/23 10:13 Respiratory Depth Normal 05/08/23 10:13 Respiratory Pattern Normal 05/08/23 10:13 Blood Pressure 128/65 05/08/23 09:46 Blood Pressure Position Sitting 05/08/23 09:46 Pulse Oximetry 99 05/08/23 09:46 Oxygen Delivery Method Room Air 05/08/23 09:46 Oxygen Flow Rate 0 05/08/23 09:46
[2023-05-08] MEDS: Albuterol HFA 8 GM 60 PUFF INH IH (10:27)
--- NOTE | 2023-05-08 10:28 | NUR.NOTE ---
Nursing Note: Pt provided inhaler and spacer for home use. Pt educated on home use. Pt verbalized understanding.
== END 2023-05-08 10:44 | disposition home or self-care (01) ==
PROVIDERS: Emergency Provider Student in an Organized Health Care Education/Training Program; PCP Internal Medicine
DX: J06.9 Acute upper respiratory infection, unspecified (principal)
CPT/HCPCS: 99283

== ENCOUNTER 2023-06-23 09:12 | Emergency (ER) | payer MEDICAID, SELFPAY ==
[2023-06-23 09:15] VITALS: BP 104/84; PULSE 70; RESP 16; TEMP 36.8; O2SAT 98
--- NOTE | 2023-06-23 09:32 | DI.CT_ITS ---
Exam(s) CT NECK W EXAM: CT NECK W CLINICAL HISTORY: left dental abscess, left facial/neck swelling. TECHNIQUE: Imaging Protocol: Axial computed tomography images with coronal and sagittal reformatted images were created and reviewed. CONTRAST MATERIAL: Intravenous: Omnipaque 350 Contrast volume:100mL COMPARISON: CT CT neck w from 08/12/2018 FINDINGS: The examination is limited due to patient motion artifact. Orbits and orbital soft tissues: Within normal limits. Visualized paranasal sinuses: There is mild mucosal thickening in the right maxillary sinus. There is a mucous retention cyst or polyp in the right sphenoid sinus. The remaining visualized paranasal sinuses and mastoid air cells are clear. Nasopharynx: Within normal limits. Oropharynx: Within normal limits. Hypopharynx: Within normal limits. Larynx: Within normal limits. Retropharyngeal space: Within normal limits. Parotids/submandibular: Within normal limits. Thyroid gland: Within normal limits. Lymphadenopathy: There is an enlarged left submandibular lymph node measuring 2.0 x 1.4 cm. This is probably reactive. Trachea: Within normal limits. Lung apices: Within normal limits. Bones: Within normal limits for the patient's age. There is a lucency seen at the root of 1 of the l eft mandibular premolars consistent with a periapical abscess. Carotids/Jugular: Within normal limits. Soft tissues: There is edema seen in the soft tissues overlying the left mandible and in the subman dibular region. No drainable abscess is identified. IMPRESSION: 1. There is a periapical abscess at the root of 1 of the left mandibular premolars. 2. Edema seen in the subcutaneous tissues overlying the left mandibular bone and in the sub mandibula r soft tissues but no drainable abscess. 3. Reactive enlarged left submandibular lymph node. RADIATION DOSE DELIVERED: 621.2mGy.cm Total DLP 621.2mGy.cm Total DLP DATA REPOSITORY: All CT scans at this facility are submitted to the National Radiology Data Registry (NRDR) Dose Index Registry (DIR) with the [employer] ([employer]). RADIATION OPTIMIZATION: All CT scans at this facility use at least one of these dose optimization te chniques: automated exposure control; mA and/or kV adjustment per patient size (includes targeted exa ms where dose is matched to clinical indication); or iterative reconstruction.
--- NOTE | 2023-06-23 09:42 | ED.GENADUL_ITS ---
Discharge Plan Disposition Patient Disposition: Home Condition: Good Discharge Details Clinical Impression: Periapical abscess Primary Care Provider: Deanna Jones ED Provider: Lilo Mosquera Home Meds and New Rx's Prescriptions: New amoxicillin-pot clavulanate 1,000-62.5 mg tablet extended release 12 hr 1 tab PO BID Qty: 28 0RF oxycodone 5 mg capsule 5 mg PO QHS PRNQty: 5 0RF No Action trazodone 50 mg tablet 200 mg PO QHS dextroamphetamine-amphetamine [Adderall] 20 mg tablet 20 mg PO DAILY albuterol sulfate 8.5 GM HFA aerosol inhaler 1 - 2 puff Inhalation Q4H PRN budesonide-formoterol [Symbicort] 10.2 GM HFA aerosol inhaler 2 puff Inhalation BID Patient Comments: Uncertain of dose levothyroxine 175 MCG tablet 175 mcg PO DAILY Qty: 90 1RF Rx Instructions: 1 tab by mouth daily citalopram [Celexa] 20 MG tablet 60 mg PO DAILY omeprazole magnesium [Prilosec OTC] 20 mg Tablet,Delayed Release (Dr/Ec) 40 mg PO DAILY Flonase Sensimist 27.5 mcg/actuation spray,suspension 2 spray CARY DAILY Qty: 5.9 0RF Rx Instructions: into each nostril Discharge Instructions Instructions: Dental Abscess (ED) Additional Instructions: Take Tylenol and ibuprofen as needed for pain; follow the directions on the bottle. A short course of oxycodone has been sent- you can take this before s leep if needed for pain. Do not drive for 8 hours after taking this medication. See a dentist as soon as possible- please make sure you fax your information to [facility]. The tooth will need to be pulled to prevent continued infection. Call your primary care doctor today to schedule an appointment within the next 5 days to follow up john your visit here. Return to the emergency department for new or worsening symptoms including fever, worsening swelling/difficultly breathing, intolerable pain, or if you have any other concerns. Medical Decision Making 37yo F with hypothyroid presenting for dental pain and facial swelling in the setting of multiple broken teeth, working on establishing dental care. One week of worsening pain and left sided facial swelling, some discharge this morning. No systemic symptoms. Vital signs reassuring, swelling and tenderness on exam with no clear visible or palpable abscess that would be amenable to bedside drainage. Not septic. Exam not concerning for Lemmierre's, Nghia's, or mastoiditis. Given degree of swelling, will evaluate further for deep space infection with CT. Tylenol/torado/PO oxycodone for symptoms, dose of IV amox here. Labs reviewed as below, CBC & CMP reassuring with no leukocytosis or acidosis. CT independently reviewed; agree with radiology read below, periapical abscess and diffuse edema. Patient has made contact with [facility] dentistry. Advised to followup with them; discharged home on course of amoxicilling with short course of oxycodone for breakthrough pain. Discharged home; discharge instructions including return precautions were reviewed with patient who verablized understanding. Alll questions were answered and they are in full agreement with the plan. Imaging Data Radiologic Study: Imaging: CT Scan Radiologist's impression: IMPRESSION: 1. There is a periapical abscess at the root of 1 of the left mandibular premolars. 2. Edema seen in the subcutaneous tissues overlying the left mandibular bone and in the sub mandibular soft tissues but no drainable abscess. 3. Reactive enlarged left submandibular lymph node.? Lab Data Lab results reviewed: Yes I reviewed the patient's lab results. Labs: Laboratory Tests Range/Units 06/23/23 06/23/23 09:45 09:45 WBC (4.4-10.8) 10^3/uL 10.01 RBC (3.93-5.22) 10^6/uL 5.14 Hgb (11.2-15.7) g/dL 12.1 Hct (36.0-46.0) % 40.2 MCV (80-95) fL 78 L MCH (27.0-33.0) pg 23.5 L MCHC (32.0-36.0) % 30.1 L RDW (11.7-14.6) % 18.1 H Plt Count (130-400) 10^3/uL 280 MPV (8.0-11.0) fL 11.4 H Immature Gran % 0.5 Neutrophils % 76.2 Lymphocytes % 18.4 Monocytes % 3.3 Eosinophils % 1.2 Basophils % 0.4 Nucleated RBC % (0.0-0.3) % 0.0 Absolute Neutrophils (1.2-6.7) 10^3/uL 7.63 H Absolute Lymphocytes (1.2-3.4) 10^3/uL 1.84 Absolute Monocytes (0.1-0.8) 10^3/uL 0.33 Absolute Eosinophils (0.0-0.7) 10^3/uL 0.12 Absolute Basophils (0.0-0.2) 10^3/uL 0.04 Sodium (136-145) mmol/L 138 Potassium (3.5-5.1) mmol/L 3.7 Chloride (98-107) mmol/L 102 Carbon Dioxide (21.0-32.0) mmol/L 24.0 Anion Gap (3-11) mmol/L 12.0 H BUN (7-18) mg/dL 11 Creatinine (0.55-1.02) mg/dL 1.0 Est GFR (CKD-EPI 2020) (mL/min/1.73m2) 74.88 Glucose (74-106) mg/dL 123 H Calcium (8.5-10.1) mg/dL 9.4 Total Bilirubin (0.2-1.0) mg/dL 0.3 AST (15-37) U/L 16 ALT (14-59) U/L 15 Alkaline Phosphatase (46-116) U/L 87 Total Protein (6.4-8.2) g/dL 8.6 H Albumin (3.4-5.0) g/dL 4.0 HPI General Mode of arrival: ambulatory . Date/Time Provider Initiated Documentation: 06/23/23 09:14 . Limitations to Documentation: no limitations . Information obtained by: patient . HPI Narrative: 37yo F with hypothyroid presenting for dental pain and facial swelling. Has multiple broken teeth. Worsening left posterior tooth pain and left sided facial and neck swelling and tenderness. This morning noted some drainage from around left posterior teeth. Has been trying to get in to see dental at [facility]. Systemically well with no no fevers, chills, rash, nausea, vomiting, malaise, or other concerns. Related Data Home Medications Medication Instructions Recorded Confirmed albuterol sulfate 90 mcg/actuation 1 - 2 puff inhalation Q4H PRN 02/05/14 06/23/23 aerosol inhaler citalopram 20 mg tablet (Celexa) 60 mg PO DAILY 04/05/15 06/23/23 budesonide-formoterol HFA 80 2 puff inhalation BID 08/05/15 06/23/23 mcg-4.5 mcg/actuation aerosol inhaler (Symbicort) levothyroxine 175 mcg tablet 175 mcg PO DAILY #90 tab-caps 12/16/17 06/23/23 omeprazole magnesium 20 mg 40 mg PO DAILY 07/14/18 06/23/23 tablet,delayed release (Prilosec OTC) fluticasone furoate 27.5 2 spray intranasal DAILY #5.9 mL 07/06/19 06/23/23 mcg/actuation nasal spray,suspension (Flonase Sensimist) dextroamphetamine-amphetamine 20 20 mg PO DAILY 05/06/20 06/23/23 mg tablet (Adderall) trazodone 50 mg tablet 200 mg PO QHS 05/13/21 06/23/23 amoxicillin-potassium clavulanate 1 tab PO BID #28 tabs 06/23/23 1,000 mg-62.5 mg tablet,ext.rel 12hr oxycodone 5 mg capsule 5 mg PO QHS PRN #5 caps 06/23/23 Previous Rx's Medication Instructions Recorded levothyroxine 175 mcg tablet 175 mcg PO DAILY #90 tab-caps 12/16/17 fluticasone furoate 27.5 2 spray intranasal DAILY #5.9 mL 07/06/19 mcg/actuation nasal spray,suspension (Flonase Sensimist) amoxicillin-potassium clavulanate 1 tab PO BID #28 tabs 06/23/23 1,000 mg-62.5 mg tablet,ext.rel 12hr oxycodone 5 mg capsule 5 mg PO QHS PRN #5 caps 06/23/23 Allergies Allergy/AdvReac Type Severity Reaction Status Date / Time bupropion HCl Allergy Mild Skin Rash Verified 06/23/23 09:19 [From Wellbutrin] gabapentin Allergy Skin Rash Verified 06/23/23 09:19 Animal Dander Allergy Intermediate Runny Uncoded 06/23/23 09:19 nose, itchy eyes H1N1 vaccine Allergy Intermediate Hives Uncoded 06/23/23 09:19 General Stated Complaint: DentalOral AIDAN: 4 Review of Systems Narrative: see HPI PFSH All Active Problems (Updated 06/23/23 @ 12:01 by Lilo Mosquera MD) Periapical abscess (Acute) Trichomonas infection (Acute) treated 03/30/23 Vaginal discharge (Acute) Pelvic pain (Acute) Conductive hearing loss (Acute) Myringotomy tube status (Acute) Retraction of tympanic membrane of both ears (Acute) TMJ (temporomandibular joint disorder) (Acute) Chronic otitis media (Acute) Morbid (severe) obesity due to excess calories (Acute) Dysfunction of both eustachian tubes (Acute) Tobacco use (Acute) Chronic maxillary sinusitis (Acute) Conductive hearing loss of both ears (Acute) Anovulatory bleeding (Acute 09/04/14) Irregular menses (Acute 10/21/16) Recurrent loss (Acute 09/04/14) Medical History (Updated 06/23/23 @ 12:01 by Lilo Mosquera MD) Asthma Takes symbicort and flovent daily and albuterol PRN, managed by PCP Depression takes celexa and seroquel, managed by PCP Obesity, Class III, BMI 40-49.9 (morbid obesity) Smoker Surgical History section 2006, 2015 H/O tubal ligation 10/[address] [facility] [address]. Eugene History of placement of ear tubes Family History Mother No problems noted. Father , cirrhosis of liver No problems noted. Brother No problems noted. Social History Smoking/Tobacco Use Status: Current every day Tobacco Type: cigarettes Tobacco: How many years used: 20 Smoking risk assessment performed?: Yes Alcohol Intake: current Alcohol Intake frequency: a few times a month Drug use: Daily Substance use type: marijuana Do you feel safe at home: Yes Do you feel safe in your relationship?: Yes Female Reproductive History Menstrual control method: permanent sterilization History History 2 Para Hx # Term Pregnancies Multiple births Hx # Pregnancies Ectopic pregnancies AB induced Hx Number of Living Children AB spontaneous Exam Narrative Exam Narrative: General: Alert, well appearing, well nourished, in no acute distress. Head: Normocephalic, atraumatic ENT: MMM. No oropharygeal lesions or exudate. Multiple broken teeth. No clear intraoral abscess or drainage. No trismus. Left cheek swollen and TTP with no warmth or erythema, mild maxillary tenderness, no mastoid tenderness. No clear palpable abscess. Neck: Trachea midline, Neck supple. Left lateral superior neck with fullness and tenderness to palpation, no warmth or erythema. Cardiac: RRR, no murmurs appreciated Resp: No respiratory distress. CTAB. Abd: Nn-distended, Extremities: No deformities. No peripheral edema. Neurologic: GCS 15. Moves all extremities freely against gravity Course Vital Signs Vital signs: Vital Signs Temperature 36.8 C 06/23/23 09:15 Pulse 70 06/23/23 09:15 Respiratory Rate 16 06/23/23 09:15 Blood Pressure 104/84 06/23/23 09:15 Pulse Oximetry 98 06/23/23 09:15 Temperature 36.8 C 06/23/23 09:15 Pulse 70 06/23/23 09:15 Respiratory Rate 16 06/23/23 09:15 Respiratory Effort Normal 06/23/23 09:21 Blood Pressure 104/84 06/23/23 09:15 Blood Pressure Position Sitting 06/23/23 09:15 Pulse Oximetry 98 06/23/23 09:15 Oxygen Delivery Method Room Air 06/23/23 09:15 Oxygen Flow Rate 0 06/23/23 09:15 Pain Level 8 06/23/23 09:22
[2023-06-23 09:56] LABS: Abs Immature Grans 0.05 10^3/uL (0.0-0.06); Absolute Basophil Count 0.04 10^3/uL (0.0-0.2); Absolute Eosinophil Count 0.12 10^3/uL (0.0-0.7); Absolute Lymphocyte Count 1.84 10^3/uL (1.2-3.4); Absolute Monocyte Count 0.33 10^3/uL (0.1-0.8); Absolute Neutrophil Count 7.63 10^3/uL (1.2-6.7); Basophils % 0.4; Eosinophils % 1.2; HCT 40.2 % (36.0-46.0); HGB 12.1 g/dL (11.2-15.7); Immature Grans % 0.5; Lymphocytes % 18.4; MCH 23.5 pg (27.0-33.0); MCHC 30.1 % (32.0-36.0); MCV 78 fL (80-95); MPV 11.4 fL (8.0-11.0); Monocytes % 3.3; Neutrophils % 76.2; Platelet Count 280 10^3/uL (130-400); RBC 5.14 10^6/uL (3.93-5.22); RDW 18.1 % (11.7-14.6); RDW-SD 50.8 fL; WBC 10.01 10^3/uL (4.4-10.8)
[2023-06-23] MEDS: AMPICILLIN/SULBACTAM 3 GM in Normal Saline 100 ML IVPB (09:56)
[2023-06-23] MEDS: Ketorolac 15 MG/ML VIAL IVP (09:56)
[2023-06-23] MEDS: oxyCODONE 5 MG TAB PO (09:56)
[2023-06-23] MEDS: ACETAMINOPHEN 1,000 MG/100 ML BTL 400 MG IVPB (09:57)
[2023-06-23 10:09] LABS: ALT 15 U/L (14-59); AST 16 U/L (15-37); Alkaline Phosphatase 87 U/L (46-116); BUN 11 mg/dL (7-18); Bilirubin, Total 0.3 mg/dL (0.2-1.0); Calcium 9.4 mg/dL (8.5-10.1); Chloride 102 mmol/L (98-107); Estimated GFR 74.88 (mL/min/1.73m2); Glucose 123 mg/dL (74-106); Potassium 3.7 mmol/L (3.5-5.1); Sodium 138 mmol/L (136-145); Total Protein 8.6 g/dL (6.4-8.2)
[2023-06-23] MEDS: Normal Saline - Diluent 50 ML VIAL IJ (11:01)
[2023-06-23] MEDS: Omnipaque 350 MG/ML 500 ML BTL-Imaging package 100 ML IJ (11:02)
[2023-06-23 12:15] VITALS: BP 140/82; PULSE 80; RESP 16; O2SAT 94
== END 2023-06-23 12:17 | disposition home or self-care (01) ==
PROVIDERS: Emergency Provider Student in an Organized Health Care Education/Training Program; PCP Internal Medicine
DX: K08.89 Other specified disorders of teeth and supporting structures (principal); K04.7 Periapical abscess without sinus; F17.210 Nicotine dependence, cigarettes, uncomplicated
CPT/HCPCS: 70491; 80053; 96365; 96368; 96375; 99285; 85025; J0131; J0295; J1885

== ENCOUNTER 2023-09-02 01:41 | Outpatient (CLI) | payer MEDICAID, SELFPAY ==
[2023-09-02 09:38] LABS: Abs Immature Grans 0.03 10^3/uL (0.0-0.06); Absolute Basophil Count 0.05 10^3/uL (0.0-0.2); Absolute Lymphocyte Count 2.62 10^3/uL (1.2-3.4); Absolute Monocyte Count 0.61 10^3/uL (0.1-0.8); Absolute Neutrophil Count 3.95 10^3/uL (1.2-6.7); Basophils % 0.7; Eosinophils % 1.4; HCT 36.1 % (36.0-46.0); HGB 11.2 g/dL (11.2-15.7); Immature Grans % 0.4; Lymphocytes % 35.6; MCH 24.3 pg (27.0-33.0); MCV 79 fL (80-95); MPV 11.1 fL (8.0-11.0); Monocytes % 8.3; Neutrophils % 53.6; Platelet Count 212 10^3/uL (130-400); RDW 18.9 % (11.7-14.6); RDW-SD 53.8 fL; WBC 7.36 10^3/uL (4.4-10.8)
[2023-09-02 10:17] LABS: Iron 19 ug/dL (50-170)
[2023-09-02 10:30] LABS: Ferritin 7 ng/mL (8-252); Folate 9.8 ng/mL (8.6-20.0); Vitamin B12 430 pg/mL (193-986)
== END 2023-09-02 01:42 | disposition home or self-care (01) ==
LOC: LBO 01:41
PROVIDERS: PCP Internal Medicine; Visit Provider Internal Medicine
DX: D64.9 Anemia, unspecified (principal)
CPT/HCPCS: 36415; 82607; 82728; 82746; 83540; 85025

== ENCOUNTER 2024-02-06 10:17 | Outpatient (REF) | payer MEDICAID, SELFPAY ==
[2024-02-07 15:18] LABS: Chlamydia Result Negative (Negative); GC Result Negative (Negative)
== END 2024-02-06 10:18 | disposition home or self-care (01) ==
LOC: LBN 10:17
PROVIDERS: PCP Internal Medicine; Visit Provider Advanced Practice Midwife
DX: Z86.19 Personal history of other infectious and parasitic diseases (principal)
CPT/HCPCS: 87491; 87591; 87480; 87510; 87660

== ENCOUNTER 2024-02-14 05:08 | Outpatient (CLI) | payer MEDICAID, SELFPAY ==
[2024-02-14 20:05] LABS: HIV-1/2 Ag & Ab Screen Negative (Negative)
[2024-02-14 20:25] LABS: Hepatitis A Antibody IgM Negative (Negative); Hepatitis B Core Antibody Negative (Negative); Hepatitis B surface Ag Negative (Negative); Hepatitis C Ab w Rflx HCV PCR Negative (Negative)
[2024-02-15 23:22] LABS: Syphilis IgG w/Reflex Nonreactive (Nonreactive)
== END 2024-02-14 05:09 | disposition home or self-care (01) ==
LOC: LBO 05:08
PROVIDERS: PCP Internal Medicine; Visit Provider Advanced Practice Midwife
DX: Z86.19 Personal history of other infectious and parasitic diseases (principal); Z11.4 Encounter for screening for human immunodeficiency virus [HIV]; Z11.59 Encounter for screening for other viral diseases; Z11.3 Encounter for screening for infections with a predominantly sexual mode of transmission
CPT/HCPCS: 36415; 86704; 86709; 86803; 87340; 87389; 86780

== ENCOUNTER 2024-02-26 20:45 | Emergency (ER) | payer MEDICAID, SELFPAY ==
[2024-02-26 20:51] VITALS: BP 131/72; PULSE 74; RESP 16; TEMP 37; O2SAT 99
--- NOTE | 2024-02-26 21:02 | ED.GENADUL_ITS ---
Discharge Plan Disposition Patient Disposition: Home Condition: Stable Discharge Details Chief Complaint: GenMedical Clinical Impression: Neck swelling Primary Care Provider: Deanna Jones ED Provider: Jovani Bauman Home Meds and New Rx's Prescriptions: No Action trazodone 50 mg tablet 200 mg PO QHS citalopram 20 mg tablet 20 mg PO DAILY citalopram 40 mg tablet 40 mg PO DAILY dextroamphetamine-amphetamine [Adderall] 20 mg tablet 20 mg PO DAILY albuterol sulfate 8.5 GM HFA aerosol inhaler 1 - 2 puff Inhalation Q4H PRN budesonide-formoterol [Symbicort] 10.2 GM HFA aerosol inhaler 2 puff Inhalation BID Patient Comments: Uncertain of dose levothyroxine 175 MCG tablet 175 mcg PO DAILY Qty: 90 1RF Rx Instructions: 1 tab by mouth daily omeprazole magnesium [Prilosec OTC] 20 mg Tablet,Delayed Release (Dr/Ec) 40 mg PO DAILY Discharge Instructions Additional Instructions: Please follow-up with your primary care physician. Please return to the emergency department for any worsening symptoms HPI General Date/Time Provider Initiated Documentation: 02/26/24 21:02 . HPI Narrative: 38-year-old female presents with sensation of swelling to anterior lateral neck bilaterally, no trouble swallowing no trouble speaking no choking no coughing no recent dental issues no recent procedures, no fevers no chills no other systemic signs of illness. Does have history of hypothyroidism. Related Data Home Medications Medication Instructions Recorded Confirmed albuterol sulfate 90 mcg/actuation 1 - 2 puff inhalation Q4H PRN 02/05/14 02/06/24 aerosol inhaler budesonide-formoterol HFA 80 2 puff inhalation BID 08/05/15 02/06/24 mcg-4.5 mcg/actuation aerosol inhaler (Symbicort) levothyroxine 175 mcg tablet 175 mcg PO DAILY #90 tab-caps 12/16/17 02/06/24 omeprazole magnesium 20 mg 40 mg PO DAILY 07/14/18 02/06/24 tablet,delayed release (Prilosec OTC) dextroamphetamine-amphetamine 20 20 mg PO DAILY 05/06/20 02/06/24 mg tablet (Adderall) trazodone 50 mg tablet 200 mg PO QHS 05/13/21 02/06/24 citalopram 20 mg tablet 20 mg PO DAILY 01/13/24 02/06/24 citalopram 40 mg tablet 40 mg PO DAILY 01/13/24 02/06/24 Previous Rx's Medication Instructions Recorded levothyroxine 175 mcg tablet 175 mcg PO DAILY #90 tab-caps 12/16/17 Allergies Allergy/AdvReac Type Severity Reaction Status Date / Time bupropion HCl Allergy Mild Skin Rash Verified 02/06/24 09:14 [From Wellbutrin] gabapentin Allergy Skin Rash Verified 02/06/24 09:14 Animal Dander Allergy Intermediate Runny Uncoded 02/06/24 09:14 nose, itchy eyes H1N1 vaccine Allergy Intermediate Hives Uncoded 02/06/24 09:14 General Stated Complaint: GenMedical AIDAN: 3 Review of Systems Narrative: Review of Systems Constitutional: negative Eyes: negative ENT: Neck swelling Cardiovascular: negative Respiratory: negative Gastrointestinal: negative : negative Musculoskeletal: negative Skin: negative Neurologic: negative Psych: negative Exam Narrative Exam Narrative: Physical Examination General: alert, awake, cooperative, resting comfortably, no acute distress HEENT: normocephalic, atraumatic; PERRL, EOM intact, conjunctiva normal; no nasal discharge; moist mucous membranes, oral and pharyngeal mucosa normal, tolerating secretions; midline uvula soft submental and submandibular space, no tonsillar erythema or exudate; no stridor Neck: supple, trachea midline; full ROM; no palpable lymphadenopathy Chest: normal to inspection Respiratory: normal respiratory effort, speaking in full sentences Skin: no lesions, rashes or trauma appreciated Neuro: AAOx3, normal speech, moving all extremities Psych: Appropriate mood and affect Course Vital Signs Vital signs: Vital Signs Temperature 37.0 C 02/26/24 20:51 Pulse 74 02/26/24 20:51 Respiratory Rate 16 02/26/24 20:51 Blood Pressure 131/72 02/26/24 20:51 Pulse Oximetry 99 02/26/24 20:51 Temperature 37.0 C 02/26/24 20:51 Temperature Source Temporal Artery Scan 02/26/24 20:51 Pulse 74 02/26/24 20:51 Respiratory Rate 16 02/26/24 20:51 Respiratory Effort Normal, Non-Labored 02/26/24 20:53 Blood Pressure 131/72 02/26/24 20:51 Blood Pressure Position Sitting 02/26/24 20:51 Pulse Oximetry 99 02/26/24 20:51 Oxygen Delivery Method Room Air 02/26/24 20:51 Oxygen Flow Rate 0 02/26/24 20:51 Pain Level 0 02/26/24 20:51 Medical Decision Making 38-year-old female presents endorsing swelling to anterior lateral neck bilaterally, afebrile nontoxic no acute distress tolerating secretions normoxic midline uvula no pharyngeal erythema or exudate, no submental sublingual or subcu mandibular induration, no crepitus neck no palpable lymph nodes, no palpable goiter. No erythema. No systemic signs of illness. Normal voice. Low suspicion for Nghia's angina or other deep space infection of the head or neck consider subclinical lymphadenopathy versus less likely thyroiditis must also consider early thyroid nodule low suspicion for septic thrombophlebitis of internal jugular vein low suspicion for carotid artery dissection or occlusion. Counseled at bedside at length, recommend close follow-up with primary care physician if symptoms persist, given strict return precautions for any worsening symptomatology. Patient comfortable with this plan. Quality:SDOH Health Related Social Needs: No Data to Display PFSH All Active Problems (Updated 02/26/24 @ 21:26 by Jovani Bauman MD) Neck swelling (Acute) History of sexually transmitted disease (Acute) Eustachian tube dysfunction (Acute) Trichomonas infection (Acute) treated 03/30/23 Vaginal discharge (Acute) Pelvic pain (Acute) Conductive hearing loss (Acute) Myringotomy tube status (Acute) Retraction of tympanic membrane of both ears (Acute) TMJ (temporomandibular joint disorder) (Acute) Chronic otitis media (Acute) Morbid (severe) obesity due to excess calories (Acute) Dysfunction of both eustachian tubes (Acute) Tobacco use (Acute) Chronic maxillary sinusitis (Acute) Conductive hearing loss of both ears (Acute) Anovulatory bleeding (Acute 09/04/14) Irregular menses (Acute 10/21/16) Recurrent loss (Acute 09/04/14) Medical History (Updated 02/26/24 @ 21:26 by Jovani Bauman MD) Smoker Asthma Takes symbicort and flovent daily and albuterol PRN, managed by PCP Obesity, Class III, BMI 40-49.9 (morbid obesity) Depression takes celexa and seroquel, managed by PCP Surgical History History of placement of ear tubes H/O tubal ligation 10/[address] [facility] [address] Eugene section 2006, 2015 Family History Mother No problems noted. Father , cirrhosis of liver No problems noted. Brother No problems noted. Social History Smoking/Tobacco Use Status: Current every day Tobacco Type: cigarettes Tobacco: How many years used: 20 Smoking risk assessment performed?: Yes Alcohol Intake: current Alcohol Intake frequency: a few times a month Drug use: Daily Substance use type: marijuana Do you feel safe at home: Yes Do you feel safe in your relationship?: Yes Female Reproductive History Menstrual control method: permanent sterilization History History 2 Para Hx # Term Pregnancies Multiple births Hx # Pregnancies Ectopic pregnancies AB induced Hx Number of Living Children AB spontaneous
== END 2024-02-26 21:27 | disposition home or self-care (01) ==
PROVIDERS: Emergency Provider Emergency Medicine; PCP Internal Medicine
DX: R22.1 Localized swelling, mass and lump, neck (principal); E03.9 Hypothyroidism, unspecified; F17.210 Nicotine dependence, cigarettes, uncomplicated
CPT/HCPCS: 99283

== ENCOUNTER → 2024-03-12 03:39 | Outpatient (CLI) | payer MEDICAID, SELFPAY ==
--- NOTE | 2024-03-12 08:00 | DI.US_ITS ---
Exam(s) US THYROID EXAM: US THYROID CLINICAL HISTORY: Thyrioid fullness, tenderness, hypothyroid,e03.9,r22.1,neck swelling. TECHNIQUE: Ultrasound thyroid performed using standard protocol. COMPARISON: US US PELVIS TRANSVAGINAL from 06/22/2021 FINDINGS: Both thyroid lobes as well as the isthmus exhibit diffuse heterogeneous echotexture and the entire gl and is hyperemic. There are no truly discernible nodules in either lobe nor within the isthmus. RIGHT THYROID LOBE: Measures 1.7 cm AP x 1.8 cm wide x 5 cm craniocaudal ISTHMUS: Measures 8 mm thick LEFT THYROID LOBE: Measures 1.9 cm AP x 2.1 wide x 4.4 cm craniocaudal LYMPH NODES: There lymph nodes both sides the neck which appear reactive. Largest on the right side measures 2 x 0.7 x 1.0 cm. The largest on the left side measures 1.4 x 0.8 x 0.5 cm.. IMPRESSION: 1. There is diffuse heterogeneous echotexture of the entire thyroid gland and the gland is also diffu sely hyperemic. 2. There are no discernible nodules. 3. Small bilateral reactive lymph nodes. No gross lymphadenopathy in the neck. DATA REPOSITORY:
== END ==
PROVIDERS: PCP Internal Medicine; Visit Provider Physician Assistant
DX: E07.89 Other specified disorders of thyroid (principal); E03.8 Other specified hypothyroidism; R22.1 Localized swelling, mass and lump, neck
CPT/HCPCS: 76536

== ENCOUNTER 2024-03-17 12:21 | Emergency (ER) | payer MEDICAID, SELFPAY ==
[2024-03-17 12:27] VITALS: BP 126/77; PULSE 66; RESP 16; TEMP 36.6; O2SAT 99
--- NOTE | 2024-03-17 12:41 | ED.GENADUL_ITS ---
Discharge Plan Disposition Patient Disposition: Home Discharge Details Clinical Impression: Tick bite Primary Care Provider: Deanna Jones ED Provider: Doug Love Home Meds and New Rx's Prescriptions: Continued trazodone 50 mg tablet 200 mg PO QHS citalopram 20 mg tablet 20 mg PO DAILY citalopram 40 mg tablet 40 mg PO DAILY dextroamphetamine-amphetamine [Adderall] 20 mg tablet 20 mg PO DAILY albuterol sulfate 8.5 GM HFA aerosol inhaler 1 - 2 puff Inhalation Q4H PRN budesonide-formoterol [Symbicort] 10.2 GM HFA aerosol inhaler 2 puff Inhalation BID Patient Comments: Uncertain of dose levothyroxine 175 MCG tablet 175 mcg PO DAILY Qty: 90 1RF Rx Instructions: 1 tab by mouth daily omeprazole magnesium [Prilosec OTC] 20 mg Tablet,Delayed Release (Dr/Ec) 40 mg PO DAILY Discharge Instructions Instructions: Insect Bites and Stings ED Additional Instructions: You were seen in the emergency department for your tick bite. You received a prophylactic dose of antibiotics. As we discussed, these antibiotics can make you sensitive to the sun. Please wear sunscreen and wear a hat outside. Please return to the emergency department as we discussed if you develop a red rash around the tick bite any fevers or cannot eat or drink as result of nausea or vomiting. Otherwise please follow-up next week with the primary care provider as needed. Discharge Data Discharge Date/Time-TO BE ENTERED AT DEPARTURE: 03/17/24 12:49 HPI General Date/Time Provider Initiated Documentation: 03/17/24 12:34 . HPI Narrative: MDM This is an overall very well-appearing normothermic and not tachycardic 38-year-old female with left posterior thigh tick bite meeting indications for prophylactic doxycycline based on duration of time since tick has been attached. No pain out of proportion to suggest necrotizing soft tissue infection. No systemic symptoms to suggest babesiosis. No erythema migrans rash to suggest Lyme so I did not obtain an ECG as patient was not short of breath so I was not suspicious for Lyme carditis. No fluctuance to suggest abscess. No surrounding erythema to suggest cellulitis. No trauma to the legs I did not obtain plain films. I cleaned the area from which the patient had removed the tick. I counseled the patient on return to the ED for any worsening swelling pain or erythema. She understood her return indications and was discharged with an empiric trial of expectant outpatient management following 200 mg of oral doxycycline. We also discussed risks of sun exposure on doxycycline. Patient is a smoker but not a diabetic. I advised patient to return if she developed any worsening swelling erythema or fluctuance. HPI This is a 38-year-old female smoker arrived to the emergency department via private vehicle in setting of a tick bite to her left posterior thigh. Patient says that over the past several days she has been outdoors walking with her dog. She cannot recall when she was bit by the tick. She noticed the tick this morning and removed it herself. She wanted it to be assessed as she noticed a small spot afterwards. She said no fevers or chills. No falls. No history of diabetes. Denies any other complaints. Exam General: Well-appearing in no acute distress speaking in complete sentences. Head: Normocephalic, atraumatic. Eye: Extraocular eye movements intact. No conjunctival injection. No scleral icterus. Ear, nose, mouth, throat: Grossly normal inspection. Normal voice, handling secretions normally. Neck: Trachea midline. Cardiovascular: Well-perfused distal extremities. Respiratory: Nonlabored respiration. Gastrointestinal: Nondistended abdomen. Musculoskeletal: No edema. Moving all 4 extremities spontaneously. Skin: On the posterior aspect of the patient's distal left thigh there is a small approximately 2 mm erythematous area consistent with recent arthropod bite. No surrounding erythema. No fluctuance. No pain out of proportion. Neurologic: Alert and appropriate, no apparent acute deficits. Psychiatric: Mood and manner are appropriate. Grooming and personal hygiene are appropriate. Related Data Home Medications Medication Instructions Recorded Confirmed albuterol sulfate 90 mcg/actuation 1 - 2 puff inhalation Q4H PRN 02/05/14 03/17/24 aerosol inhaler budesonide-formoterol HFA 80 2 puff inhalation BID 08/05/15 03/17/24 mcg-4.5 mcg/actuation aerosol inhaler (Symbicort) levothyroxine 175 mcg tablet 175 mcg PO DAILY #90 tab-caps 12/16/17 03/17/24 omeprazole magnesium 20 mg 40 mg PO DAILY 07/14/18 03/17/24 tablet,delayed release (Prilosec OTC) dextroamphetamine-amphetamine 20 20 mg PO DAILY 05/06/20 03/17/24 mg tablet (Adderall) trazodone 50 mg tablet 200 mg PO QHS 05/13/21 03/17/24 citalopram 20 mg tablet 20 mg PO DAILY 01/13/24 03/17/24 citalopram 40 mg tablet 40 mg PO DAILY 01/13/24 03/17/24 Previous Rx's Medication Instructions Recorded levothyroxine 175 mcg tablet 175 mcg PO DAILY #90 tab-caps 12/16/17 Allergies Allergy/AdvReac Type Severity Reaction Status Date / Time bupropion HCl Allergy Mild Skin Rash Verified 03/17/24 12:25 [From Wellbutrin] gabapentin Allergy Skin Rash Verified 03/17/24 12:25 Animal Dander Allergy Intermediate Runny Uncoded 03/17/24 12:25 nose, itchy eyes H1N1 vaccine Allergy Intermediate Hives Uncoded 03/17/24 12:25 General Stated Complaint: InsectBite AIDAN: 5 Course Vital Signs Vital signs: Vital Signs Temperature 36.6 C 03/17/24 12:27 Pulse 66 03/17/24 12:27 Respiratory Rate 16 03/17/24 12:27 Blood Pressure 126/77 03/17/24 12:27 Pulse Oximetry 99 03/17/24 12:27 Temperature 36.6 C 03/17/24 12:27 Temperature Source Temporal Artery Scan 03/17/24 12:27 Pulse 66 03/17/24 12:27 Respiratory Rate 16 03/17/24 12:27 Respiratory Effort Normal, Non-Labored 03/17/24 12:29 Blood Pressure 126/77 03/17/24 12:27 Blood Pressure Position Sitting 03/17/24 12:27 Pulse Oximetry 99 03/17/24 12:27 Oxygen Delivery Method Room Air 03/17/24 12:27 Oxygen Flow Rate 0 03/17/24 12:27 Pain Level 0 03/17/24 12:30 Medical Decision Making Quality:SDOH Health Related Social Needs: No Data to Display PFSH All Active Problems (Updated 03/17/24 @ 12:43 by Doug Love MD) Tick bite (Acute) Nonfunctional myringotomy tube (Acute) Sensation of fullness in left ear (Acute) Neck swelling (Acute) History of sexually transmitted disease (Acute) Eustachian tube dysfunction (Acute) Trichomonas infection (Acute) treated 03/30/23 Vaginal discharge (Acute) Pelvic pain (Acute) Conductive hearing loss (Acute) Myringotomy tube status (Acute) Retraction of tympanic membrane of both ears (Acute) TMJ (temporomandibular joint disorder) (Acute) Chronic otitis media (Acute) Morbid (severe) obesity due to excess calories (Acute) Dysfunction of both eustachian tubes (Acute) Tobacco use (Acute) Chronic maxillary sinusitis (Acute) Conductive hearing loss of both ears (Acute) Anovulatory bleeding (Acute 09/04/14) Irregular menses (Acute 10/21/16) Recurrent loss (Acute 09/04/14) Medical History (Updated 03/17/24 @ 12:43 by Doug Love MD) Smoker Asthma Takes symbicort and flovent daily and albuterol PRN, managed by PCP Obesity, Class III, BMI 40-49.9 (morbid obesity) Depression takes celexa and seroquel, managed by PCP Surgical History History of placement of ear tubes H/O tubal ligation 10/[facility] Dr. [place] section 2006, 2015 Family History Mother No problems noted. Father , cirrhosis of liver No problems noted. Brother No problems noted. Social History Smoking/Tobacco Use Status: Current every day Tobacco Type: cigarettes Tobacco: How many years used: 20 Smoking risk assessment performed?: Yes Alcohol Intake: current Alcohol Intake frequency: a few times a month Drug use: Daily Substance use type: marijuana Housing: apartment Do you feel safe at home: Yes Do you feel safe in your relationship?: Yes Female Reproductive History Menstrual control method: permanent sterilization History History 2 Para Hx # Term Pregnancies Multiple births Hx # Pregnancies Ectopic pregnancies AB induced Hx Number of Living Children AB spontaneous
[2024-03-17] MEDS: Doxycycline Hyclate 100 MG CAP 200 MG PO (12:48)
== END 2024-03-17 12:49 | disposition home or self-care (01) ==
PROVIDERS: Emergency Provider Emergency Medicine; PCP Internal Medicine
DX: S70.362A Insect bite (nonvenomous), left thigh, initial encounter (principal); W57.XXXA Bitten or stung by nonvenomous insect and other nonvenomous arthropods, initial encounter; Y93.89 Activity, other specified; Y92.89 Other specified places as the place of occurrence of the external cause; F17.210 Nicotine dependence, cigarettes, uncomplicated
CPT/HCPCS: 99283

== ENCOUNTER 2024-05-31 09:08 | Emergency (ER) | payer MEDICAID, SELFPAY ==
[2024-05-31 09:15] VITALS: BP 135/86; PULSE 74; RESP 15; TEMP 36.8; O2SAT 96
[2024-05-31 09:18] VITALS: BP 135/86; PULSE 74; RESP 15; TEMP 36.8; O2SAT 96
[2024-05-31 10:08] VITALS: BP 130/81; PULSE 66; RESP 18; O2SAT 96
--- NOTE | 2024-05-31 15:30 | W.ED.GENAD ---
Discharge Plan Disposition Patient Disposition: Home Condition: Stable Discharge Details Clinical Impression: Otitis media Primary Care Provider: Deanna Jones ED Provider: Iraida Momin Home Meds and New Rx's Prescriptions: New amoxicillin-pot clavulanate 875-125 mg tablet 1 tab PO BID Qty: 20 0RF Continued trazodone 50 mg tablet 200 mg PO QHS citalopram 20 mg tablet 20 mg PO DAILY citalopram 40 mg tablet 40 mg PO DAILY dextroamphetamine-amphetamine [Adderall] 20 mg tablet 20 mg PO DAILY albuterol sulfate 8.5 GM HFA aerosol inhaler 1 - 2 puff Inhalation Q4H PRN budesonide-formoterol [Symbicort] 10.2 GM HFA aerosol inhaler 2 puff Inhalation BID Patient Comments: Uncertain of dose levothyroxine 175 MCG tablet 175 mcg PO DAILY Qty: 90 1RF Rx Instructions: 1 tab by mouth daily omeprazole magnesium [Prilosec OTC] 20 mg Tablet,Delayed Release (Dr/Ec) 40 mg PO DAILY Discharge Instructions Instructions: Ear Infection ED Additional Instructions: Take antibiotic as prescribed Yogurt daily while on antibiotic Tylenol as needed for discomfort Please return should you have spreading redness, fever, worsening discomfort despite antibiotics reassessment with your primary care physician in 48 hours Referrals: Deanna Jones [Primary Care Provider] - 2 days Discharge Data Discharge Date/Time-TO BE ENTERED AT DEPARTURE: 05/31/24 10:09 HPI General Date/Time Provider Initiated Documentation: 05/31/24 09:21. HPI Narrative: This 38-year-old female presents with report of right ear pain. She states it started several days ago. History of ear infections in the past. Denies any difficulty swallowing or shortness of breath. Denies fever or chills. Denies chance of . Related Data Home Medications ?Medication ?Instructions ?Recorded ?Confirmed albuterol sulfate 90 mcg/actuation 1 - 2 puff inhalation Q4H PRN 02/05/14 05/31/24 aerosol inhaler budesonide-formoterol HFA 80 2 puff inhalation BID 08/05/15 05/31/24 mcg-4.5 mcg/actuation aerosol inhaler (Symbicort) levothyroxine 175 mcg tablet 175 mcg PO DAILY #90 tab-caps 12/16/17 05/31/24 omeprazole magnesium 20 mg 40 mg PO DAILY 07/14/18 05/31/24 tablet,delayed release (Prilosec OTC) dextroamphetamine-amphetamine 20 20 mg PO DAILY 05/06/20 05/31/24 mg tablet (Adderall) trazodone 50 mg tablet 200 mg PO QHS 05/13/21 05/31/24 citalopram 20 mg tablet 20 mg PO DAILY 01/13/24 05/31/24 citalopram 40 mg tablet 40 mg PO DAILY 01/13/24 05/31/24 amoxicillin 875 mg-potassium 1 tab PO BID #20 tabs 05/31/24 clavulanate 125 mg tablet Previous Rx's ?Medication ?Instructions ?Recorded levothyroxine 175 mcg tablet 175 mcg PO DAILY #90 tab-caps 12/16/17 amoxicillin 875 mg-potassium 1 tab PO BID #20 tabs 05/31/24 clavulanate 125 mg tablet Allergies Allergy/AdvReac Type Severity Reaction Status Date / Time bupropion HCl (From Allergy Mild Skin Rash Verified 05/31/24 09:19 Wellbutrin) gabapentin Allergy Skin Rash Verified 05/31/24 09:19 Animal Dander Allergy Intermediate Runny Uncoded 05/31/24 09:19 nose, itchy eyes H1N1 vaccine Allergy Intermediate Hives Uncoded 05/31/24 09:19 General Stated Complaint: EarProblem AIDAN: 3 Exam Narrative Exam Narrative: Right TM injected, fluid behind, no mastoid tenderness uvula midline, oropharynx patent, no acute distress, submandibular lymphadenopathy on the right Course Vital Signs Vital signs: Vital Signs Temperature 36.8 C 05/31/24 09:15 Pulse 74 05/31/24 09:15 Respiratory Rate 15 05/31/24 09:15 Blood Pressure 135/86 05/31/24 09:15 Pulse Oximetry 96 05/31/24 09:15 Temperature 36.8 C 05/31/24 09:18 Temperature Source Temporal Artery Scan 05/31/24 09:18 Pulse 66 05/31/24 10:08 Respiratory Rate 18 05/31/24 10:08 Respiratory Effort Normal 05/31/24 09:17 Blood Pressure 130/81 05/31/24 10:08 Blood Pressure Position Sitting 05/31/24 09:18 Pulse Oximetry 96 05/31/24 10:08 Oxygen Delivery Method Room Air 05/31/24 09:18 Oxygen Flow Rate 0 05/31/24 09:18 Pain Level 5 05/31/24 09:18 Medical Decision Making Patient is in no acute distress, presenting with right ear pain. Placed on Augmentin. Return precautions reviewed and patient expressed understanding no clinical findings consistent with mastoiditis Quality:[facility] Health Related Social Needs: No Data to Display [facility] All Active Problems (Updated 05/31/24 @ 09:56 by SAIRA Puentes) Otitis media (Acute) Thyroid with heterogeneous echotexture determined by ultrasound (Acute) Nonfunctional myringotomy tube (Acute) Sensation of fullness in left ear (Acute) History of sexually transmitted disease (Acute) Eustachian tube dysfunction (Acute) Trichomonas infection (Acute) treated 03/30/23 Vaginal discharge (Acute) Pelvic pain (Acute) Conductive hearing loss (Acute) Myringotomy tube status (Acute) Retraction of tympanic membrane of both ears (Acute) TMJ (temporomandibular joint disorder) (Acute) Chronic otitis media (Acute) Morbid (severe) obesity due to excess calories (Acute) Dysfunction of both eustachian tubes (Acute) Tobacco use (Acute) Chronic maxillary sinusitis (Acute) Conductive hearing loss of both ears (Acute) Anovulatory bleeding (Acute 09/04/14) Irregular menses (Acute 10/21/16) Recurrent loss (Acute 09/04/14) Medical History (Updated 05/31/24 @ 09:56 by SAIRA Puentes) Smoker Asthma Takes symbicort and flovent daily and albuterol PRN, managed by PCP Obesity, Class III, BMI 40-49.9 (morbid obesity) Depression takes celexa and seroquel, managed by PCP Surgical History History of placement of ear tubes H/O tubal ligation 10/[address] [facility] [address] [place] section 2015 Family History Mother No problems noted. Father , cirrhosis of liver No problems noted. Brother No problems noted. Social History Smoking/Tobacco Use Status: Current every day Tobacco Type: cigarettes Tobacco: How many years used: 20 Smoking risk assessment performed?: Yes Alcohol Intake: current Alcohol Intake frequency: a few times a month Drug use: Daily Substance use type: marijuana Housing: apartment Do you feel safe at home: Yes Do you feel safe in your relationship?: Yes Female Reproductive History Menstrual control method: permanent sterilization History History 2 Para Hx # Term Pregnancies Multiple births Hx # Pregnancies Ectopic pregnancies AB induced Hx Number of Living Children AB spontaneous
== END 2024-05-31 10:09 | disposition home or self-care (01) ==
PROVIDERS: Emergency Provider Physician Assistant; PCP Internal Medicine
DX: H92.01 Otalgia, right ear (principal); H66.91 Otitis media, unspecified, right ear
CPT/HCPCS: 99283

== ENCOUNTER 2024-06-09 17:58 | Emergency (ER) | payer MEDICAID, SELFPAY ==
[2024-06-09 18:02] VITALS: BP 124/76; PULSE 89; RESP 16; TEMP 36.6; O2SAT 98
--- NOTE | 2024-06-09 19:16 | W.ED.GENAD ---
Discharge Plan Disposition Patient Disposition: Home Condition: Stable Discharge Details Clinical Impression: Stye Primary Care Provider: Deanna Jones ED Provider: Javon Fitch Home Meds and New Rx's Prescriptions: Continued trazodone 50 mg tablet 200 mg PO QHS citalopram 20 mg tablet 20 mg PO DAILY citalopram 40 mg tablet 40 mg PO DAILY dextroamphetamine-amphetamine [Adderall] 20 mg tablet 25 mg PO DAILY albuterol sulfate 8.5 GM HFA aerosol inhaler 1 - 2 puff Inhalation Q4H PRN budesonide-formoterol [Symbicort] 10.2 GM HFA aerosol inhaler 2 puff Inhalation BID Patient Comments: Uncertain of dose levothyroxine 175 MCG tablet 175 mcg PO DAILY Qty: 90 1RF Rx Instructions: 1 tab by mouth daily omeprazole magnesium [Prilosec OTC] 20 mg Tablet,Delayed Release (Dr/Ec) 40 mg PO DAILY Discharge Instructions Instructions: Stye, Erythromycin (Ophthalmic) Additional Instructions: You were seen in the emergency department for the stye of your medial left eye, please perform hot compresses as we discussed 3-4 times daily, apply the topical ointment we provided for you 4 times daily for 5 days, please return to the emergency department for severe increase in redness, eye swollen shut, severe visual changes, eye pain with eye movement. Referrals: Deanna Jones [Primary Care Provider] - Discharge Data Discharge Date/Time-TO BE ENTERED AT DEPARTURE: 06/09/24 19:43 HPI General Date/Time Provider Initiated Documentation: 06/09/24 18:09. HPI Narrative: 38 year-old female presents to ED today by POV/ambulating with a chief complaint of L medial eye irritation- red pimple like swelling at medial canthus with onset noted 5 days ago. Quality described as irritating, no radiation to purulent drainage, visual changes, severe swelling, fevers. Severity is described as mild. Palliating factors include nothing specific attempted. Provoking factors include nothing specific. Patient not anticoagulated. Related Data Home Medications ?Medication ?Instructions ?Recorded ?Confirmed albuterol sulfate 90 mcg/actuation 1 - 2 puff inhalation Q4H PRN 02/05/14 06/09/24 aerosol inhaler budesonide-formoterol HFA 80 2 puff inhalation BID 08/05/15 06/09/24 mcg-4.5 mcg/actuation aerosol inhaler (Symbicort) levothyroxine 175 mcg tablet 175 mcg PO DAILY #90 tab-caps 12/16/17 06/09/24 omeprazole magnesium 20 mg 40 mg PO DAILY 07/14/18 06/09/24 tablet,delayed release (Prilosec OTC) dextroamphetamine-amphetamine 20 25 mg PO DAILY 05/06/20 06/09/24 mg tablet (Adderall) trazodone 50 mg tablet 200 mg PO QHS 05/13/21 06/09/24 citalopram 20 mg tablet 20 mg PO DAILY 01/13/24 06/09/24 citalopram 40 mg tablet 40 mg PO DAILY 01/13/24 06/09/24 Previous Rx's ?Medication ?Instructions ?Recorded levothyroxine 175 mcg tablet 175 mcg PO DAILY #90 tab-caps 12/16/17 Allergies Allergy/AdvReac Type Severity Reaction Status Date / Time bupropion HCl (From Allergy Mild Skin Rash Verified 06/09/24 18:07 Wellbutrin) gabapentin Allergy Skin Rash Verified 06/09/24 18:07 Animal Dander Allergy Intermediate Runny Uncoded 06/09/24 18:07 nose, itchy eyes H1N1 vaccine Allergy Intermediate Hives Uncoded 06/09/24 18:07 General Stated Complaint: EyeProblem AIDAN: 4 Review of Systems All systems reviewed & are unremarkable except as noted in HPI and below Exam Narrative Exam Narrative: GENERAL APPEARANCE: Well-nourished, non-toxic, awake and alert, atraumatic, no acute distress. SKIN: Warm, pink, dry, intact, without rashes/lesions/ulcerations. HEAD: Normocephalic, atraumatic, normal hair distribution for gender/age. EYES: Normal conjunctiva, no exudates on lids/lashes, EOMs intact, pupils PERRLA, small papular lesion at the left eyes medial canthus consistent with hordeolum ENT: Nares patent, no circumoral cyanosis, no facial swelling NECK: Supple, trachea midline, painless cervical ROM. LUNGS/CHEST: Non-labored respirations, normal A/P diameter, symmetrical expansion, no chest wall deformity HEART (CV/PV): No peripheral edema, no JVD. ABDOMEN: Soft, non-distended, no guarding. MSK: Normal ROM, no swelling/deformity to bilateral UEs or LEs, moving all extremities without weakness, no cyanosis, spine midline without tenderness, normal curvature. NEURO: Mental Status AAOx4 - alert to person, place, time, events No facial droop, no forehead involvement. Motor: No focal weakness - strength 5/5 in bilateral UEs and LEs, proximal and distal, symmetric. Sensory: sensation intact to light touch globally. Gait normal: patient ambulated without ataxia into ED room. PSYCH: euthymic, cooperative, pleasant, appropriate speech Course Vital Signs Vital signs: Vital Signs Temperature 36.6 C 06/09/24 18:02 Pulse 89 06/09/24 18:02 Respiratory Rate 16 06/09/24 18:02 Blood Pressure 124/76 06/09/24 18:02 Pulse Oximetry 98 06/09/24 18:02 Temperature 36.6 C 06/09/24 18:02 Pulse 89 06/09/24 18:02 Respiratory Rate 16 06/09/24 18:02 Respiratory Effort Normal 06/09/24 18:05 Blood Pressure 124/76 06/09/24 18:02 Pulse Oximetry 98 06/09/24 18:02 Pain Level 0 06/09/24 18:02 Medical Decision Making This dictation utilizes [id number] dictation software and may contain unedited grammatical errors. 38 year-old female presents to ED today by POV/ambulating with a chief complaint of L medial eye irritation- red pimple like swelling at medial canthus with onset noted 5 days ago. Quality described as irritating, no radiation to purulent drainage, visual changes, severe swelling, fevers. Severity is described as mild. Palliating factors include nothing specific attempted. Provoking factors include nothing specific. Patients' medical history: Smoker, asthma, carrier of staph bacteria. Family and social history: Noncontributory. Pertinent exam findings / vital signs include small pimple-like stye at the medial canthus of the left eye, no purulent drainage, vision grossly intact. Differential / pathologies of concern include hordeolum, dacrocystitis. Diagnostic studies of: -none. Interventions of: -erythromycin ointment & recommend hot compress. ED Course/Assessment/Plan: 38-year-old female has a stye to the medial left thigh, recommend hot compress and provided erythromycin ointment, strict return criteria for severe increase in symptoms despite treatment, visual changes or visual loss, fever, redness, eye swollen shut. Findings not consistent with preseptal cellulitis or orbital cellulitis. Disposition of stye. Patient verbalized understanding of the plan and return to ED criteria and engaged in shared decision making. Medical Records Medical records reviewed: Yes I reviewed the patient's medical records. Quality:[facility] Health Related Social Needs: No Data to Display [facility] All Active Problems (Updated 06/09/24 @ 19:24 by SAIRA Valle) Stye (Acute) Otitis media (Acute) Thyroid with heterogeneous echotexture determined by ultrasound (Acute) Nonfunctional myringotomy tube (Acute) Sensation of fullness in left ear (Acute) History of sexually transmitted disease (Acute) Eustachian tube dysfunction (Acute) Trichomonas infection (Acute) treated 03/30/23 Vaginal discharge (Acute) Pelvic pain (Acute) Conductive hearing loss (Acute) Myringotomy tube status (Acute) Retraction of tympanic membrane of both ears (Acute) TMJ (temporomandibular joint disorder) (Acute) Chronic otitis media (Acute) Morbid (severe) obesity due to excess calories (Acute) Dysfunction of both eustachian tubes (Acute) Tobacco use (Acute) Chronic maxillary sinusitis (Acute) Conductive hearing loss of both ears (Acute) Anovulatory bleeding (Acute 09/04/14) Irregular menses (Acute 10/21/16) Recurrent loss (Acute 09/04/14) Medical History (Updated 06/09/24 @ 19:24 by SAIRA Valle) Smoker Asthma Takes symbicort and flovent daily and albuterol PRN, managed by PCP Obesity, Class III, BMI 40-49.9 (morbid obesity) Depression takes celexa and seroquel, managed by PCP Surgical History History of placement of ear tubes H/O tubal ligation 10/2018 [facility] [address]. [place] section 2006, 2015 Family History Mother No problems noted. Father , cirrhosis of liver No problems noted. Brother No problems noted. Social History Smoking/Tobacco Use Status: Current every day Tobacco Type: cigarettes Tobacco: How many years used: 20 Smoking risk assessment performed?: Yes Alcohol Intake: current Alcohol Intake frequency: a few times a month Drug use: Daily Substance use type: marijuana Housing: apartment Do you feel safe at home: Yes Do you feel safe in your relationship?: Yes Female Reproductive History Menstrual control method: permanent sterilization History History 2 Para Hx # Term Pregnancies Multiple births Hx # Pregnancies Ectopic pregnancies AB induced Hx Number of Living Children AB spontaneous
[2024-06-09] MEDS: Erythromycin Ophth Oint 3.5 GM TUBE OS (19:40)
[2024-06-09 19:41] VITALS: BP 124/76; PULSE 89; RESP 16; TEMP 36.6; O2SAT 98
[2024-06-09 19:42] VITALS: BP 124/76; PULSE 89; RESP 16; TEMP 36.6; O2SAT 98
== END 2024-06-09 19:43 | disposition home or self-care (01) ==
PROVIDERS: Emergency Provider Physician Assistant; PCP Internal Medicine
DX: H00.015 Hordeolum externum left lower eyelid
CPT/HCPCS: 99283

== ENCOUNTER 2024-06-29 13:07 | Outpatient (CLI) | payer MEDICAID, SELFPAY ==
[2024-06-29 13:53] LABS: TSH (W/Ref FT4) 6.15 uIU/mL (0.36-3.74)
== END 2024-06-29 13:08 | disposition home or self-care (01) ==
LOC: LBO 13:07
PROVIDERS: PCP Internal Medicine; Visit Provider Physician Assistant
DX: E03.9 Hypothyroidism, unspecified (principal); R22.1 Localized swelling, mass and lump, neck
CPT/HCPCS: 36415; 84439; 84443

== ENCOUNTER 2024-08-04 15:20 | Emergency (ER) | payer MEDICAID, SELFPAY ==
[2024-08-04 15:26] VITALS: BP 118/81; PULSE 92; RESP 16; TEMP 36.6; O2SAT 96
--- NOTE | 2024-08-04 15:26 | ED.GENADUL_ITS ---
Discharge Plan Disposition Patient Disposition: Home Condition: Stable Discharge Details Clinical Impression: Closed fracture of fourth toe of left foot Primary Care Provider: Deanna Jones ED Provider: Javon Fitch Home Meds and New Rx's Prescriptions: Continued trazodone 50 mg tablet 50 mg PO QHS citalopram 20 mg tablet 20 mg PO DAILY citalopram 40 mg tablet 40 mg PO DAILY dextroamphetamine-amphetamine [Adderall] 20 mg tablet 25 mg PO DAILY albuterol sulfate 8.5 GM HFA aerosol inhaler 1 - 2 puff Inhalation Q4H PRN budesonide-formoterol [Symbicort] 10.2 GM HFA aerosol inhaler 2 puff Inhalation BID Patient Comments: Uncertain of dose levothyroxine 175 MCG tablet 175 mcg PO DAILY Qty: 90 1RF Rx Instructions: 1 tab by mouth daily omeprazole magnesium [Prilosec OTC] 20 mg Tablet,Delayed Release (Dr/Ec) 40 mg PO DAILY trazodone 100 mg tablet 200 mg PO QHS Patient Comments: TAKE 2 TABLETS BY MOUTH EVERY NIGHT AT BEDTIME NEEDED FOR INSOMNIA Discharge Instructions Instructions: Toe Fracture ED Additional Instructions: You were seen in the emergency department for the fracture of your left fourth toe. We have provided you with a cast shoe, this should heal without issue over the next 4 to 6 weeks. Please weight-bear as tolerated, please use therapeutic dosing of Tylenol (acetamenophen) & Advil (ibuprofen) in an alternating fashion as follows: Take 1000mg of Tylenol every 6 hours without missing doses- that is 4 times per day. Jail in between the Tylenol dosings, take 400-600mg of Advil also on a 6 hour schedule, that is also 4 times per day. The daily maximum dosing of Tylenol is 4000mg, and the daily maximum dosing of Advil is 2400mg. This is safe to do for weeks. Please note that some common cold medications & prescription pain medications may contain acetamenophen and you need to read OTC drug labels and factor that in to maximum daily dosings. Follow-up with orthopedics for any persistent pain lasting longer than 4 to 6 weeks or any chronic deformity, please return to the emergency department for any signs of infection at the top Referrals: [facility] [Provider Group] Deanna Jones [Primary Care Provider] - Discharge Data Discharge Date/Time-TO BE ENTERED AT DEPARTURE: 08/04/24 17:28 HPI General Date/Time Provider Initiated Documentation: 08/04/24 15:26 . HPI Narrative: 39 year-old female presents to ED today by POV/ambulating with a chief complaint of toe pain- stubbed her L 4th toe with onset this morning, stubbing it on the bathtub. Quality described as throbbing, bruising, no radiation to complete numbness, foot pain, ankle pain, fall, other trauma. Severity is described as severe. Palliating factors include nothing specific. Provoking factors include nothing specific. Patient not anticoagulated. Related Data Home Medications ?Medication ?Instructions ?Recorded ?Confirmed albuterol sulfate 90 mcg/actuation 1 - 2 puff inhalation Q4H PRN 02/05/14 08/04/24 aerosol inhaler budesonide-formoterol HFA 80 2 puff inhalation BID 08/05/15 08/04/24 mcg-4.5 mcg/actuation aerosol inhaler (Symbicort) levothyroxine 175 mcg tablet 175 mcg PO DAILY #90 tab-caps 12/16/17 08/04/24 omeprazole magnesium 20 mg 40 mg PO DAILY 07/14/18 08/04/24 tablet,delayed release (Prilosec OTC) dextroamphetamine-amphetamine 20 25 mg PO DAILY 05/06/20 08/04/24 mg tablet (Adderall) trazodone 50 mg tablet 50 mg PO QHS 05/13/21 08/04/24 citalopram 20 mg tablet 20 mg PO DAILY 01/13/24 08/04/24 citalopram 40 mg tablet 40 mg PO DAILY 01/13/24 08/04/24 trazodone 100 mg tablet 200 mg PO QHS 08/04/24 08/04/24 Previous Rx's ?Medication ?Instructions ?Recorded levothyroxine 175 mcg tablet 175 mcg PO DAILY #90 tab-caps 12/16/17 Allergies Allergy/AdvReac Type Severity Reaction Status Date / Time bupropion HCl (From Allergy Mild Skin Rash Verified 08/04/24 15:29 Wellbutrin) gabapentin Allergy Skin Rash Verified 08/04/24 15:29 Animal Dander Allergy Intermediate Runny Uncoded 08/04/24 15:29 nose, itchy eyes H1N1 vaccine Allergy Intermediate Hives Uncoded 08/04/24 15:29 General AIDAN: 4 Review of Systems All systems reviewed & are unremarkable except as noted in HPI and below Exam Narrative Exam Narrative: GENERAL APPEARANCE: Well-nourished, non-toxic, awake and alert, atraumatic, no acute distress. SKIN: Warm, pink, dry, intact, without rashes/lesions/ulcerations. HEAD: Normocephalic, atraumatic, normal hair distribution for gender/age. EYES: Normal conjunctiva, no exudates on lids/lashes. ENT: Nares patent, no circumoral cyanosis, no facial swelling NECK: Supple, trachea midline, painless cervical ROM. LUNGS/CHEST: Non-labored respirations, normal A/P diameter, symmetrical expansion, no chest wall deformity HEART (CV/PV): Regular rate, L dorsalis pedis pulse 2+, no peripheral edema, no JVD. ABDOMEN: Soft, non-distended, no guarding. MSK: Normal ROM, no swelling/deformity to bilateral UEs or LEs, moving all extremities without weakness, no cyanosis, spine midline without tenderness, normal curvature, mild swelling and ecchymosis to the medial aspect of the left fourth toe, no other tenderness NEURO: Mental Status AAOx4 - alert to person, place, time, events No facial droop, no forehead involvement. Motor: No focal weakness - strength 5/5 in bilateral UEs and LEs, proximal and distal, symmetric. Sensory: sensation intact to light touch globally. Gait antalgic. PSYCH: euthymic, cooperative, pleasant, appropriate speech Medical Decision Making This dictation utilizes [id number] dictation software and may contain unedited grammatical errors. 39 year-old female presents to ED today by POV/ambulating with a chief complaint of toe pain- stubbed her L 4th toe with onset this morning, stubbing it on the bathtub. Quality described as throbbing, bruising, no radiation to complete numbness, foot pain, ankle pain, fall, other trauma. Severity is described as severe. Palliating factors include nothing specific. Provoking factors include nothing specific. Patients' medical history: Noncontributory. Family and social history: Noncontributory. Pertinent exam findings / vital signs include mild medial left fourth toe ecchymosis and swelling, no proximal foot tenderness, neurovascularly intact. Differential / pathologies of concern include fracture, sprain/strain. Diagnostic studies of: -XR left fourth toe, shows likely subtle fracture. Interventions of: -Cast shoe. ED Course/Assessment/Plan: 39-year-old female presents with mild to moderate left fourth toe pain and WNL in her bathtub this morning, there is a subtle fracture, counseled on using the cast shoe performing RICE therapy and using Tylenol and ibuprofen, recommend follow-up with PCP or orthopedics for routine x-rays to ensure routine healing, strict return criteria for signs of infection. Findings not consistent with neurovascular compromise. Disposition of closed fracture of fourth toe of left foot. Patient verbalized understanding of the plan and return to ED criteria and engaged in shared decision making. Medical Records Medical records reviewed: Yes I reviewed the patient's medical records. Imaging Data Radiologic Study: Attestation: I personally reviewed and interpreted this imaging study as follows: Imaging: X-Ray Radiologist's impression: Exam: XR Left Toe(s) Exam date and time: 08/04/2024 3:58 PM Age: 39 years old Clinical indication: Injury or trauma; Other: Stubbed toe, bruising; Blunt trauma; Other: 4th TECHNIQUE: Imaging protocol: Radiologic exam of the left toes. Views: Minimum 2 views. COMPARISON: No relevant prior studies available. FINDINGS: Bones/joints: See Soft tissues finding. Soft tissues: There is soft tissue swelling of the distal of the 4th digit. On the frontal view there is the suggestion of some lucency at the medial aspect of the proximal portion of the distal tuft, possible nondisplaced fracture. IMPRESSION: Suspect subtle, nondisplaced fracture medial aspect proximal portion distal 4th toe. Dictated and Authenticated by: Radha Quinones MD. Quality:[facility] Health Related Social Needs: No Data to Display PFSH All Active Problems (Updated 08/04/24 @ 17:12 by SAIRA Valle) Closed fracture of fourth toe of left foot (Acute) Mixed hearing loss of right ear (Acute) Recurrent otitis media (Acute) Thyroid with heterogeneous echotexture determined by ultrasound (Acute) Nonfunctional myringotomy tube (Acute) Sensation of fullness in left ear (Acute) History of sexually transmitted disease (Acute) Eustachian tube dysfunction (Acute) Trichomonas infection (Acute) treated 03/30/23 Vaginal discharge (Acute) Pelvic pain (Acute) Conductive hearing loss (Acute) Myringotomy tube status (Acute) Retraction of tympanic membrane of both ears (Acute) TMJ (temporomandibular joint disorder) (Acute) Chronic otitis media (Acute) Morbid (severe) obesity due to excess calories (Acute) Dysfunction of both eustachian tubes (Acute) Tobacco use (Acute) Chronic maxillary sinusitis (Acute) Conductive hearing loss of both ears (Acute) Anovulatory bleeding (Acute 09/04/14) Irregular menses (Acute 10/21/16) Recurrent loss (Acute 09/04/14) Medical History (Updated 08/04/24 @ 17:12 by SAIRA Valle) Smoker Asthma Takes symbicort and flovent daily and albuterol PRN, managed by PCP Obesity, Class III, BMI 40-49.9 (morbid obesity) Depression takes celexa and seroquel, managed by PCP Surgical History History of placement of ear tubes H/O tubal ligation 10/[address] [facility] [address] [place] section 2006, 2015 Family History Mother No problems noted. Father , cirrhosis of liver No problems noted. Brother No problems noted. Social History Smoking/Tobacco Use Status: Current every day Tobacco Type: cigarettes Tobacco: How many years used: 20 Smoking risk assessment performed?: Yes Alcohol Intake: current Alcohol Intake frequency: a few times a month Drug use: Daily Substance use type: marijuana Housing: apartment Do you feel safe at home: Yes Do you feel safe in your relationship?: Yes Female Reproductive History Menstrual control method: permanent sterilization History History 2 Para Hx # Term Pregnancies Multiple births Hx # Pregnancies Ectopic pregnancies AB induced Hx Number of Living Children AB spontaneous
--- NOTE | 2024-08-04 15:30 | DI.RAD_ITS ---
Exam(s) XR TOE LT FOURTH EXAM: XR TOE LT FOURTH CLINICAL HISTORY: stubbed toe, bruising. TECHNIQUE: 2D digital imaging was performed. Three views. COMPARISON: No exams were available for comparison FINDINGS: BONES: Question of minor nondisplaced fracture of the tuft of the distal phalanx.. No bony destruct darcy lesion is seen. JOINTS: No dislocation present. SOFT TISSUE: Normal. IMPRESSION: Question of nondisplaced fracture tuft of distal phalanx DATA REPOSITORY: RADIATION DOSE DELIVERED:
--- NOTE | 2024-08-04 16:28 | DI.VRAD_ITS ---
PROCEDURE INFORMATION: Exam: XR Left Toe(s) Exam date and time: 08/04/2024 3:58 PM Age: 39 years old Clinical indication: Injury or trauma; Other: Stubbed toe, bruising; Blunt trauma; Other: 4th TECHNIQUE: Imaging protocol: Radiologic exam of the left toes. Views: Minimum 2 views. COMPARISON: No relevant prior studies available. FINDINGS: Bones/joints: See Soft tissues finding. Soft tissues: There is soft tissue swelling of the distal of the 4th digit. On the frontal view there is the suggestion of some lucency at the medial aspect of the proximal portion of the distal tuft, possible nondisplaced fracture. IMPRESSION: Suspect subtle, nondisplaced fracture medial aspect proximal portion distal 4th toe. Dictated and Authenticated by: Radha Quinones MD. Ordering:CINTHYA Alejandro MD
[2024-08-04 17:27] VITALS: BP 122/78; PULSE 84; RESP 18; O2SAT 98
== END 2024-08-04 17:28 | disposition home or self-care (01) ==
PROVIDERS: Emergency Provider Physician Assistant; PCP Internal Medicine
DX: S92.535A Nondisplaced fracture of distal phalanx of left lesser toe(s), initial encounter for closed fracture (principal); F17.210 Nicotine dependence, cigarettes, uncomplicated; W22.8XXA Striking against or struck by other objects, initial encounter; Y93.89 Activity, other specified; Y92.012 Bathroom of single-family (private) house as the place of occurrence of the external cause
CPT/HCPCS: 99283; 73660

== ENCOUNTER 2024-08-10 09:38 | Emergency (ER) | payer MEDICAID, SELFPAY ==
[2024-08-10 09:41] VITALS: BP 121/74; PULSE 92; RESP 18; O2SAT 97
--- NOTE | 2024-08-10 09:52 | W.ED.GENAD ---
Discharge Plan Disposition Patient Disposition: Home Discharge Details Clinical Impression: Closed fracture of fourth toe of left foot Primary Care Provider: Deanna Jones ED Provider: Denia Sherman Home Meds and New Rx's Prescriptions: No Action trazodone 50 mg tablet 50 mg PO QHS citalopram 20 mg tablet 20 mg PO DAILY citalopram 40 mg tablet 40 mg PO DAILY dextroamphetamine-amphetamine [Adderall] 20 mg tablet 25 mg PO DAILY albuterol sulfate 8.5 GM HFA aerosol inhaler 1 - 2 puff Inhalation Q4H PRN budesonide-formoterol [Symbicort] 10.2 GM HFA aerosol inhaler 2 puff Inhalation BID Patient Comments: Uncertain of dose levothyroxine 175 MCG tablet 175 mcg PO DAILY Qty: 90 1RF Rx Instructions: 1 tab by mouth daily cyclobenzaprine 10 mg tablet 10 mg PO DAILY PRN Patient Comments: TAKE ONE TABLET BY MOUTH EVERY DAY NEEDED FOR MUSCLE PAIN hydrochlorothiazide 25 mg tablet 25 mg PO DAILY Patient Comments: TAKE 1 TABLET BY MOUTH DAILY omeprazole magnesium [Prilosec OTC] 20 mg Tablet,Delayed Release (Dr/Ec) 40 mg PO DAILY trazodone 100 mg tablet 200 mg PO QHS Patient Comments: TAKE 2 TABLETS BY MOUTH EVERY NIGHT AT BEDTIME NEEDED FOR INSOMNIA Discharge Instructions Instructions: Toe Fracture ED Additional Instructions: Please wear the cast shoe at all times when you are up and about to keep the toes from flexing, as this causes more pain and aggravates the fracture. Elevate your leg above heart level to help with swelling. Apply ice for 15 to 20 minutes at a time every hour. Use the Tylenol and ibuprofen as advised, alternating [id number]. Follow-up with orthopedics in 4 to 6 weeks as advised. Return to emergency care if you develop significant redness, numbness to your foot, increased swelling in the left leg, difficulty breathing, or if you are very worried and need to be rechecked again immediately Referrals: [facility] [Provider Group] HPI General Date/Time Provider Initiated Documentation: 08/10/24 09:43. HPI Narrative: Nadeen is a 39-year-old female presents emergency department today for evaluation of left foot pain. She reports that she was diagnosed with a fourth toe fracture a week ago. She has been wearing the cast shoe as advised, but felt better today so she took it off. She is wearing her normal sneakers while out and about, driving around. She has since developed worsening left foot pain that is worse with weightbearing, she has pain shooting up her leg when she bears weight on it. She has not taken any medication, elevated her foot today, or used any ice. She denies numbness to the foot, bruising, increased swelling to her left chan, chest pain, difficulty breathing. She called orthopedics and was told to follow-up in 4 to 6 weeks. Physical exam very reassuring. Mild swelling noted to the dorsum of the left foot. No lesions or bruising noted. No obvious point tenderness or deformities. Brisk cap refill. No obvious swelling to the left calf. Patient is alert and oriented, no acute distress. Easy work of breathing. History and presentation consistent with known healing fracture, no red flags concerning for neurovascular compromise or acute complications. No indication at this time for repeat x-ray. Increased pain is likely due to swelling attributed to not wearing cast shoe or taking any medications as advised. While in the emergency department patient received ice, Tylenol, and ibuprofen. Reviewed discharge instructions with patient, including symptom management. She voices agreement with plan of care. Related Data Home Medications ?Medication ?Instructions ?Recorded ?Confirmed albuterol sulfate 90 mcg/actuation 1 - 2 puff inhalation Q4H PRN 02/05/14 08/10/24 aerosol inhaler budesonide-formoterol HFA 80 2 puff inhalation BID 08/05/15 08/10/24 mcg-4.5 mcg/actuation aerosol inhaler (Symbicort) levothyroxine 175 mcg tablet 175 mcg PO DAILY #90 tab-caps 12/16/17 08/10/24 omeprazole magnesium 20 mg 40 mg PO DAILY 07/14/18 08/10/24 tablet,delayed release (Prilosec OTC) dextroamphetamine-amphetamine 20 25 mg PO DAILY 05/06/20 08/10/24 mg tablet (Adderall) trazodone 50 mg tablet 50 mg PO QHS 05/13/21 08/10/24 citalopram 20 mg tablet 20 mg PO DAILY 01/13/24 08/10/24 citalopram 40 mg tablet 40 mg PO DAILY 01/13/24 08/10/24 trazodone 100 mg tablet 200 mg PO QHS 08/04/24 08/10/24 cyclobenzaprine 10 mg tablet 10 mg PO DAILY PRN 08/10/24 08/10/24 hydrochlorothiazide 25 mg tablet 25 mg PO DAILY 08/10/24 08/10/24 Previous Rx's ?Medication ?Instructions ?Recorded levothyroxine 175 mcg tablet 175 mcg PO DAILY #90 tab-caps 12/16/17 Allergies Allergy/AdvReac Type Severity Reaction Status Date / Time bupropion HCl (From Allergy Mild Skin Rash Verified 08/10/24 09:43 Wellbutrin) gabapentin Allergy Skin Rash Verified 08/10/24 09:43 Animal Dander Allergy Intermediate Runny Uncoded 08/10/24 09:43 nose, itchy eyes H1N1 vaccine Allergy Intermediate Hives Uncoded 08/10/24 09:43 General Stated Complaint: Orthopedic AIDAN: 4 Review of Systems Narrative: see HPI Exam Const General: cooperative, healthy appearing, comfortable, no acute distress, well developed and well groomed Orientation: alert and oriented x3 Resp Effort & Inspection: normal respiratory effort and able to speak in complete sentences Skin General skin exam: no rashes or lesions noted Extrem Left lower extremity: full ROM, normal capillary refill, ankle Details: normal to inspection and foot Details: normal capillary refill, toes with normal ROM, edema (mild to dorsum of foot) and vascular exam Details: not cool and no cyanosis; no unusual warmth, no abrasions, no lacerations, no ecchymosis, no foreign bodies and no puncture wound Course Vital Signs Vital signs: Vital Signs Pulse 92 H 08/10/24 09:41 Respiratory Rate 18 08/10/24 09:41 Blood Pressure 121/74 08/10/24 09:41 Pulse Oximetry 97 08/10/24 09:41 Pulse 92 H 08/10/24 09:41 Respiratory Rate 18 08/10/24 09:41 Respiratory Effort Normal, Non-Labored 08/10/24 09:45 Blood Pressure 121/74 08/10/24 09:41 Blood Pressure Position Sitting 08/10/24 09:41 Pulse Oximetry 97 08/10/24 09:41 Oxygen Delivery Method Room Air 08/10/24 09:41 Oxygen Flow Rate 0 08/10/24 09:41 Pain Level 7 08/10/24 09:41 Medical Decision Making Quality:SDOH Health Related Social Needs: No Data to Display [facility] All Active Problems (Updated 08/10/24 @ 09:55 by Denia Velazquez) Closed fracture of fourth toe of left foot (Acute) Mixed hearing loss of right ear (Acute) Recurrent otitis media (Acute) Thyroid with heterogeneous echotexture determined by ultrasound (Acute) Nonfunctional myringotomy tube (Acute) Sensation of fullness in left ear (Acute) Eustachian tube dysfunction (Acute) Conductive hearing loss (Acute) Retraction of tympanic membrane of both ears (Acute) TMJ (temporomandibular joint disorder) (Acute) Chronic otitis media (Acute) Morbid (severe) obesity due to excess calories (Acute) Dysfunction of both eustachian tubes (Acute) Tobacco use (Acute) Chronic maxillary sinusitis (Acute) Conductive hearing loss of both ears (Acute) Medical History Trichomonas infection treated 03/30/23 History of sexually transmitted disease Smoker Asthma Takes symbicort and flovent daily and albuterol PRN, managed by PCP Obesity, Class III, BMI 40-49.9 (morbid obesity) Depression takes celexa and seroquel, managed by PCP Surgical History Myringotomy tube status History of hysterectomy 2022, [facility] History of placement of ear tubes H/O tubal ligation 10/[address] [facility] [address] [place] section 2015 Family History Mother No problems noted. Father , cirrhosis of liver No problems noted. Brother No problems noted. Social History (Updated 08/06/24 @ 08:37 by Liset Winston NP) Smoking/Tobacco Use Status: Current every day Tobacco Type: cigarettes Tobacco: How many years used: 20 Quit status: has quit before Second Hand Exposure: No Smoking risk assessment performed?: Yes Alcohol Intake: current Alcohol Intake frequency: a few times a month Drug use: Daily Substance use type: marijuana Housing: apartment Sexually active: Yes What type of physical activity do you participate in: regular exercise Seatbelt use: always Helmet use: Yes Do you feel safe at home: Yes Do you feel safe in your relationship?: Yes Female Reproductive History Menstrual control method: permanent sterilization Menopause type: surgical History History 2 Para Hx # Term Pregnancies Multiple births Hx # Pregnancies Ectopic pregnancies AB induced Hx Number of Living Children AB spontaneous
[2024-08-10] MEDS: Ibuprofen 800 MG TAB PO (10:08)
[2024-08-10] MEDS: Acetaminophen 325 MG TAB 650 MG PO (10:08)
== END 2024-08-10 10:14 | disposition home or self-care (01) ==
LOC: ER 09:58
PROVIDERS: Emergency Provider Nurse Practitioner Family; PCP Internal Medicine
DX: X58.XXXA Exposure to other specified factors, initial encounter; M79.672 Pain in left foot
CPT/HCPCS: 99282; 99283

== ENCOUNTER 2024-09-24 17:36 | Emergency (ER) | payer MEDICAID, SELFPAY ==
[2024-09-24 17:40] VITALS: BP 121/82; PULSE 84; RESP 15; TEMP 36.6; O2SAT 98
[2024-09-24 17:42] VITALS: BP 121/82; PULSE 84; RESP 15; TEMP 36.6; O2SAT 98
--- NOTE | 2024-09-24 18:12 | W.ED.GENAD ---
Discharge Plan Disposition Patient Disposition: Home Discharge Details Clinical Impression: Pain due to dental caries Primary Care Provider: Deanna Jones ED Provider: Denia Sherman Home Meds and New Rx's Prescriptions: New Amox. 875/Clav. 125, 2 Tabs/Bt [Augmentin 875-125, 2 Tabs/Btl] 1 tab PO DISPENSE 10 Days Qty: 20 0RF amoxicillin-pot clavulanate 875-125 mg tablet 1 tab PO BID Qty: 14 0RF No Action trazodone 50 mg tablet 50 mg PO QHS citalopram 20 mg tablet 20 mg PO DAILY citalopram 40 mg tablet 40 mg PO DAILY dextroamphetamine-amphetamine [Adderall] 20 mg tablet 25 mg PO DAILY albuterol sulfate 8.5 GM HFA aerosol inhaler 1 - 2 puff Inhalation Q4H PRN budesonide-formoterol [Symbicort] 10.2 GM HFA aerosol inhaler 2 puff Inhalation BID Patient Comments: Uncertain of dose levothyroxine 175 MCG tablet 175 mcg PO DAILY Qty: 90 1RF Rx Instructions: 1 tab by mouth daily cyclobenzaprine 10 mg tablet 10 mg PO DAILY PRN Patient Comments: TAKE ONE TABLET BY MOUTH EVERY DAY NEEDED FOR MUSCLE PAIN hydrochlorothiazide 25 mg tablet 25 mg PO DAILY Patient Comments: TAKE 1 TABLET BY MOUTH DAILY omeprazole magnesium [Prilosec OTC] 20 mg Tablet,Delayed Release (Dr/Ec) 40 mg PO DAILY trazodone 100 mg tablet 200 mg PO QHS Patient Comments: TAKE 2 TABLETS BY MOUTH EVERY NIGHT AT BEDTIME NEEDED FOR INSOMNIA Discharge Instructions Additional Instructions: Please follow-up with dental as scheduled on October 08. I am prescribing you Augmentin for infection. Please take the full course as prescribed. You may use Orajel or other numbing gel to help with discomfort. You may use Tylenol 650 mg every 6 hours as needed for discomfort and Aleve 500 mg tomorrow morning (12 hours after previous dose). Do salt water rinses. Avoid very hot or cold foods; gentle and soft foods may be most comfortable to eat Return to emergency care if develop high fevers, significant swelling of your cheek, difficulty opening your mouth, change in your voice, vision changes, or if you are very worried and need to be rechecked again immediately HPI General Date/Time Provider Initiated Documentation: 09/24/24 18:12. HPI Narrative: Nadeen is a 39 year old female who presents to the emergency department today for evaluation of R upper tooth pain. She reports pain started yesterday, is accompanied by swelling of the gums and radiates across the upper jaw. She has multiple broken/decaying teeth. She has an appointment with a dentist scheduled on October 08 at [facility] to have her teeth removed. She denies associated fever/chills, vision changes, unusual headaches, difficulty opening her mouth, difficulty swallowing, intraoral swelling other than in the gumline, generalized malaise, hearing changes. Pain is aggravated with chewing or temperature extremes. She was last treated antibiotics approximately 6 months ago. Past medical history is significant for history of tobacco use and dental issues. Denies history of immunocompromise or IVDU. Physical exam remarkable for significant dental decay/broken teeth noted to the right upper jaw. No trismus. Mild swelling of the gumline, no obvious abscess. No other intraoral swelling noted. Voice is clear. No cervical or submandibular lymphadenopathy. PERRL, EOMs intact. Cranial nerves II through XII intact as tested. Vital signs unremarkable, no tachycardia or fever noted History and presentation most consistent with dental caries/gumline infection. No red flags concerning for Nghia angina, cranial nerve involvement, or other deep space/systemic infection requiring diagnostic imaging and blood work. No dental abscess requiring drainage will treat with Augmentin, first dose given in ED. If the swabs of HurriCaine gel were also provided for comfort Reviewed discharge instructions with patient, including symptomatic management and red flags indicating need for return to emergency care. Related Data Home Medications ?Medication ?Instructions ?Recorded ?Confirmed albuterol sulfate 90 mcg/actuation 1 - 2 puff inhalation Q4H PRN 02/05/14 09/24/24 aerosol inhaler budesonide-formoterol HFA 80 2 puff inhalation BID 08/05/15 09/24/24 mcg-4.5 mcg/actuation aerosol inhaler (Symbicort) levothyroxine 175 mcg tablet 175 mcg PO DAILY #90 tab-caps 12/16/17 09/24/24 omeprazole magnesium 20 mg 40 mg PO DAILY 07/14/18 09/24/24 tablet,delayed release (Prilosec OTC) dextroamphetamine-amphetamine 20 25 mg PO DAILY 05/06/20 09/24/24 mg tablet (Adderall) trazodone 50 mg tablet 50 mg PO QHS 05/13/21 09/24/24 citalopram 20 mg tablet 20 mg PO DAILY 01/13/24 09/24/24 citalopram 40 mg tablet 40 mg PO DAILY 01/13/24 09/24/24 trazodone 100 mg tablet 200 mg PO QHS 08/04/24 09/24/24 cyclobenzaprine 10 mg tablet 10 mg PO DAILY PRN 08/10/24 09/24/24 hydrochlorothiazide 25 mg tablet 25 mg PO DAILY 08/10/24 09/24/24 Amox. 875/Clav. 125, 2 tabs/bt 1 tab PO DISPENSE 10 days #20 caps 09/24/24 [Augmentin 875-125, 2 tabs/btl] amoxicillin 875 mg-potassium 1 tab PO BID #14 tabs 09/24/24 clavulanate 125 mg tablet Previous Rx's ?Medication ?Instructions ?Recorded levothyroxine 175 mcg tablet 175 mcg PO DAILY #90 tab-caps 12/16/17 Amox. 875/Clav. 125, 2 tabs/bt 1 tab PO DISPENSE 10 days #20 caps 09/24/24 [Augmentin 875-125, 2 tabs/btl] amoxicillin 875 mg-potassium 1 tab PO BID #14 tabs 09/24/24 clavulanate 125 mg tablet Allergies Allergy/AdvReac Type Severity Reaction Status Date / Time bupropion HCl (From Allergy Mild Skin Rash Verified 09/24/24 17:44 Wellbutrin) gabapentin Allergy Skin Rash Verified 09/24/24 17:44 Animal Dander Allergy Intermediate Runny Uncoded 09/24/24 17:44 nose, itchy eyes H1N1 vaccine Allergy Intermediate Hives Uncoded 09/24/24 17:44 General Stated Complaint: DentalOral AIDAN: 4 Review of Systems Narrative: See HPI Exam Const General: cooperative, healthy appearing, comfortable, no acute distress and well developed Orientation: alert and oriented x3 HENMT Head: normal to inspection General nose exam: external nose normal Face and sinus: normal facial exam and face symmetric Mouth: lip normal, tongue normal, salivary ducts normal, oropharynx normal, moist mucous membranes, no drooling and no muffled voice Teeth and gingiva: gingiva abnormal edematous (R upper jaw) and tender (R upper jaw) and poor dentition Throat: posterior oropharynx normal, tonsils normal and uvula midline Eyes Pupils: PERRL EOM: EOM intact bilaterally Neck Neck: normal visual inspection and no lymphadenopathy Neuro General: patient alert, patient oriented x3, gait normal and CN's II-XI intact bilaterally Cognition: normal cognition Speech: speech normal Gait: normal gait Course Vital Signs Vital signs: Vital Signs Temperature 36.6 C 09/24/24 17:40 Pulse 84 09/24/24 17:40 Respiratory Rate 15 09/24/24 17:40 Blood Pressure 121/82 09/24/24 17:40 Pulse Oximetry 98 09/24/24 17:40 Temperature 36.6 C 09/24/24 17:42 Pulse 84 09/24/24 17:42 Respiratory Rate 15 09/24/24 17:42 Blood Pressure 121/82 09/24/24 17:42 Blood Pressure Position Sitting 09/24/24 17:42 Pulse Oximetry 98 09/24/24 17:42 Oxygen Delivery Method Room Air 09/24/24 17:42 Oxygen Flow Rate 0 09/24/24 17:42 Medical Decision Making Quality:SDOH Health Related Social Needs: No Data to Display PFSH All Active Problems (Updated 09/24/24 @ 18:17 by Denia Velazquez) Pain due to dental caries (Acute) Contusion of fourth toe, left (Acute) Mixed hearing loss of right ear (Acute) Recurrent otitis media (Acute) Thyroid with heterogeneous echotexture determined by ultrasound (Acute) Nonfunctional myringotomy tube (Acute) Sensation of fullness in left ear (Acute) Eustachian tube dysfunction (Acute) Conductive hearing loss (Acute) Retraction of tympanic membrane of both ears (Acute) TMJ (temporomandibular joint disorder) (Acute) Chronic otitis media (Acute) Morbid (severe) obesity due to excess calories (Acute) Dysfunction of both eustachian tubes (Acute) Tobacco use (Acute) Chronic maxillary sinusitis (Acute) Conductive hearing loss of both ears (Acute) Medical History Trichomonas infection treated 03/30/23 History of sexually transmitted disease Smoker Asthma Takes symbicort and flovent daily and albuterol PRN, managed by PCP Obesity, Class III, BMI 40-49.9 (morbid obesity) Depression takes celexa and seroquel, managed by PCP Surgical History Myringotomy tube status History of hysterectomy 2022, [facility] History of placement of ear tubes H/O tubal ligation 10/[address] [facility] [address]. [place] section 2006, 2015 Family History Mother No problems noted. Father , cirrhosis of liver No problems noted. Brother No problems noted. Social History (Updated 08/06/24 @ 08:37 by Liset Winston NP) Smoking/Tobacco Use Status: Current every day Tobacco Type: cigarettes Tobacco: How many years used: 20 Quit status: has quit before Second Hand Exposure: No Smoking risk assessment performed?: Yes Alcohol Intake: current Alcohol Intake frequency: a few times a month Drug use: Daily Substance use type: marijuana Housing: apartment Sexually active: Yes What type of physical activity do you participate in: regular exercise Seatbelt use: always Helmet use: Yes Do you feel safe at home: Yes Do you feel safe in your relationship?: Yes Female Reproductive History Menstrual control method: permanent sterilization Menopause type: surgical History History 2 Para Hx # Term Pregnancies Multiple births Hx # Pregnancies Ectopic pregnancies AB induced Hx Number of Living Children AB spontaneous
[2024-09-24] MEDS: Benzocaine 20% Gel 30 GM JAR MM (18:43)
[2024-09-24] MEDS: Amoxicillin 875/Clav. 125 TAB PO (18:43)
[2024-09-24 18:44] VITALS: BP 121/82; PULSE 84; RESP 15; TEMP 36.6; O2SAT 98
== END 2024-09-24 18:21 | disposition home or self-care (01) ==
PROVIDERS: Emergency Provider Nurse Practitioner Family; PCP Internal Medicine
DX: K08.89 Other specified disorders of teeth and supporting structures (principal); K02.9 Dental caries, unspecified; F17.210 Nicotine dependence, cigarettes, uncomplicated
CPT/HCPCS: 99283

== ENCOUNTER 2024-10-15 10:16 | Emergency (ER) | payer MEDICAID, SELFPAY ==
[2024-10-15 10:22] VITALS: BP 119/77; PULSE 80; RESP 12; TEMP 36.5; O2SAT 97
--- NOTE | 2024-10-15 10:31 | ED.GENADUL_ITS ---
Discharge Plan Disposition Patient Disposition: Home Discharge Details Clinical Impression: Follow-up exam Primary Care Provider: Deanna Jones ED Provider: Doug Love Home Meds and New Rx's Prescriptions: Continued trazodone 50 mg tablet 50 mg PO QHS citalopram 20 mg tablet 20 mg PO DAILY citalopram 40 mg tablet 40 mg PO DAILY dextroamphetamine-amphetamine [Adderall] 20 mg tablet 25 mg PO DAILY albuterol sulfate 8.5 GM HFA aerosol inhaler 1 - 2 puff Inhalation Q4H PRN budesonide-formoterol [Symbicort] 10.2 GM HFA aerosol inhaler 2 puff Inhalation BID Patient Comments: Uncertain of dose levothyroxine 175 MCG tablet 175 mcg PO DAILY Qty: 90 1RF Rx Instructions: 1 tab by mouth daily cyclobenzaprine 10 mg tablet 10 mg PO DAILY PRN Patient Comments: TAKE ONE TABLET BY MOUTH EVERY DAY NEEDED FOR MUSCLE PAIN hydrochlorothiazide 25 mg tablet 25 mg PO DAILY Patient Comments: TAKE 1 TABLET BY MOUTH DAILY omeprazole magnesium [Prilosec OTC] 20 mg Tablet,Delayed Release (Dr/Ec) 40 mg PO DAILY trazodone 100 mg tablet 200 mg PO QHS Patient Comments: TAKE 2 TABLETS BY MOUTH EVERY NIGHT AT BEDTIME NEEDED FOR INSOMNIA Discharge Instructions Additional Instructions: You were seen in the emergency department for reassessment of your stitches. These are dissolvable and will come out on their own. As we discussed if you develop fevers foul-smelling drainage or cannot eat or drink please return to the emergency department. Discharge Data Discharge Date/Time-TO BE ENTERED AT DEPARTURE: 10/15/24 10:54 HPI General Date/Time Provider Initiated Documentation: 10/15/24 10:31 . HPI Narrative: MDM This is an overall very well-appearing normothermic and not tachycardic 39-year-old female with well-healing intraoral absorbable sutures for which patient will be discharged with empiric trial of expectant outpatient management. No brawny edema submentally to suggest increased risk for Nghia's angina. Handling secretions so my suspicion is low for intraoral infection. I considered sepsis however the patient is not febrile nor tachycardic so did not feel the patient required blood cultures nor lactate assessment nor empiric antibiotics. Patient handling secretions with good range of motion in neck so my suspicion is low for retropharyngeal abscess. Uvula midline so my suspicion is low for peritonsillar abscess. Patient I discussed that if she develops foul-smelling drainage fevers or any worsening pain that she should return to the emergency department but otherwise I advised that her absorbable suture with COVID out about its own and that she should follow-up with her dentist as needed. HPI This is a 39-year-old female who is 1 week postop status post surgical extraction of teeth 3, 4, 5, 6, 11, 12, 18 and 19 at [facility] requesting that her sutures be removed. She said that she has been using her chlorhexidine rinse a nd spit. She notes that the left-sided sutures are irritating her. She has had no fevers no foul-smelling drainage. She has been eating and drinking well. Denies dysuria and frequency. No other complaints. She is not certain when she has follow-up with her dentist. Exam General: Well-appearing in no acute distress speaking in complete sentences. Head: Normocephalic, atraumatic. Eye: Extraocular eye movements intact. No conjunctival injection. No scleral icterus. Ear, nose, mouth, throat: Intraoral sutures appear to be healing well. No streaking signs of infection. No brawny edema. No foul-smelling drainage. Normal voice, handling secretions normally. Neck: Trachea midline. Cardiovascular: Well-perfused distal extremities. Respiratory: Nonlabored respiration. Gastrointestinal: Nondistended abdomen. Musculoskeletal: No edema. Moving all 4 extremities spontaneously. Skin: Normal for age and race, grossly normal temperature and turgor. No acute rash. Neurologic: Alert and appropriate, no apparent acute deficits. Psychiatric: Mood and manner are appropriate. Grooming and personal hygiene are appropriate. Related Data Home Medications ?Medication ?Instructions ?Recorded ?Confirmed albuterol sulfate 90 mcg/actuation 1 - 2 puff inhalation Q4H PRN 02/05/14 10/15/24 aerosol inhaler budesonide-formoterol HFA 80 2 puff inhalation BID 08/05/15 10/15/24 mcg-4.5 mcg/actuation aerosol inhaler (Symbicort) levothyroxine 175 mcg tablet 175 mcg PO DAILY #90 tab-caps 12/16/17 10/15/24 omeprazole magnesium 20 mg 40 mg PO DAILY 07/14/18 10/15/24 tablet,delayed release (Prilosec OTC) dextroamphetamine-amphetamine 20 25 mg PO DAILY 05/06/20 10/15/24 mg tablet (Adderall) trazodone 50 mg tablet 50 mg PO QHS 05/13/21 09/24/24 citalopram 20 mg tablet 20 mg PO DAILY 01/13/24 10/15/24 citalopram 40 mg tablet 40 mg PO DAILY 01/13/24 10/15/24 trazodone 100 mg tablet 200 mg PO QHS 08/04/24 10/15/24 cyclobenzaprine 10 mg tablet 10 mg PO DAILY PRN 08/10/24 10/15/24 hydrochlorothiazide 25 mg tablet 25 mg PO DAILY 08/10/24 10/15/24 Previous Rx's ?Medication ?Instructions ?Recorded levothyroxine 175 mcg tablet 175 mcg PO DAILY #90 tab-caps 12/16/17 Allergies Allergy/AdvReac Type Severity Reaction Status Date / Time bupropion HCl (From Allergy Mild Skin Rash Verified 10/15/24 10:27 Wellbutrin) gabapentin Allergy Skin Rash Verified 10/15/24 10:27 Animal Dander Allergy Intermediate Runny Uncoded 10/15/24 10:27 nose, itchy eyes H1N1 vaccine Allergy Intermediate Hives Uncoded 10/15/24 10:27 General Stated Complaint: SutureRem AIDAN: 4 Course Vital Signs Vital signs: Vital Signs Temperature 36.5 C 10/15/24 10:22 Pulse 80 10/15/24 10:22 Respiratory Rate 12 10/15/24 10:22 Blood Pressure 119/77 10/15/24 10:22 Pulse Oximetry 97 10/15/24 10:22 Temperature 36.5 C 10/15/24 10:22 Temperature Source Oral 10/15/24 10:22 Pulse 80 10/15/24 10:22 Respiratory Rate 12 10/15/24 10:22 Blood Pressure 119/77 10/15/24 10:22 Blood Pressure Position Sitting 10/15/24 10:22 Pulse Oximetry 97 10/15/24 10:22 Oxygen Delivery Method Room Air 10/15/24 10:22 Oxygen Flow Rate 0 10/15/24 10:22 Pain Level 0 10/15/24 10:22 Medical Decision Making Quality:SDOH Health Related Social Needs: No Data to Display [facility] All Active Problems (Updated 10/15/24 @ 10:49 by Doug Love MD) Follow-up exam (Acute) Pain due to dental caries (Acute) Contusion of fourth toe, left (Acute) Mixed hearing loss of right ear (Acute) Recurrent otitis media (Acute) Thyroid with heterogeneous echotexture determined by ultrasound (Acute) Nonfunctional myringotomy tube (Acute) Sensation of fullness in left ear (Acute) Eustachian tube dysfunction (Acute) Conductive hearing loss (Acute) Retraction of tympanic membrane of both ears (Acute) TMJ (temporomandibular joint disorder) (Acute) Chronic otitis media (Acute) Morbid (severe) obesity due to excess calories (Acute) Dysfunction of both eustachian tubes (Acute) Tobacco use (Acute) Chronic maxillary sinusitis (Acute) Conductive hearing loss of both ears (Acute) Medical History Trichomonas infection treated 03/30/23 History of sexually transmitted disease Smoker Asthma Takes symbicort and flovent daily and albuterol PRN, managed by PCP Obesity, Class III, BMI 40-49.9 (morbid obesity) Depression takes celexa and seroquel, managed by PCP Surgical History Myringotomy tube status History of hysterectomy 2022, [facility] History of placement of ear tubes H/O tubal ligation 10/[address] [facility] [address] [place] section 2006, 2015 Family History Mother No problems noted. Father , cirrhosis of liver No problems noted. Brother No problems noted. Social History (Updated 08/06/24 @ 08:37 by Liset Winston NP) Smoking/Tobacco Use Status: Current every day Tobacco Type: cigarettes Tobacco: How many years used: 20 Quit status: has quit before Second Hand Exposure: No Smoking risk assessment performed?: Yes Alcohol Intake: current Alcohol Intake frequency: a few times a month Drug use: Daily Substance use type: marijuana Housing: apartment Sexually active: Yes What type of physical activity do you participate in: regular exercise Seatbelt use: always Helmet use: Yes Do you feel safe at home: Yes Do you feel safe in your relationship?: Yes Female Reproductive History Menstrual control method: permanent sterilization Menopause type: surgical History History 2 Para Hx # Term Pregnancies Multiple births Hx # Pregnancies Ectopic pregnancies AB induced Hx Number of Living Children AB spontaneous
== END 2024-10-15 10:54 | disposition home or self-care (01) ==
PROVIDERS: Emergency Provider Emergency Medicine; PCP Internal Medicine
DX: K13.6 Irritative hyperplasia of oral mucosa (principal); Z98.818 Other dental procedure status
CPT/HCPCS: 99282; 99283

== ENCOUNTER 2024-11-09 19:01 | Emergency (ER) | payer MEDICAID, SELFPAY ==
--- NOTE | 2024-11-09 19:24 | W.ED.GENAD ---
Discharge Plan Disposition Patient Disposition: Home Discharge Details Clinical Impression: Viral URI with cough Primary Care Provider: Deanna Jones ED Provider: Doug Love Home Meds and New Rx's Prescriptions: New promethazine-DM 6.25-15 mg/5 mL syrup 5 ml PO Q6H PRNQty: 118 0RF cetirizine 10 mg tablet 10 mg PO DAILY PRNQty: 7 0RF benzonatate 100 mg capsule 100 mg PO BID PRNQty: 7 0RF naproxen 500 mg tablet 500 mg PO BID PRNQty: 7 0RF No Action trazodone 50 mg tablet 50 mg PO QHS citalopram 20 mg tablet 20 mg PO DAILY citalopram 40 mg tablet 40 mg PO DAILY dextroamphetamine-amphetamine [Adderall] 20 mg tablet 25 mg PO DAILY albuterol sulfate 8.5 GM HFA aerosol inhaler 1 - 2 puff Inhalation Q4H PRN budesonide-formoterol [Symbicort] 10.2 GM HFA aerosol inhaler 2 puff Inhalation BID Patient Comments: Uncertain of dose levothyroxine 175 MCG tablet 175 mcg PO DAILY Qty: 90 1RF Rx Instructions: 1 tab by mouth daily cyclobenzaprine 10 mg tablet 10 mg PO DAILY PRN Patient Comments: TAKE ONE TABLET BY MOUTH EVERY DAY NEEDED FOR MUSCLE PAIN hydrochlorothiazide 25 mg tablet 25 mg PO DAILY Patient Comments: TAKE 1 TABLET BY MOUTH DAILY omeprazole magnesium [Prilosec OTC] 20 mg Tablet,Delayed Release (Dr/Ec) 40 mg PO DAILY trazodone 100 mg tablet 200 mg PO QHS Patient Comments: TAKE 2 TABLETS BY MOUTH EVERY NIGHT AT BEDTIME NEEDED FOR INSOMNIA Discharge Instructions Additional Instructions: You are seen in the emergency department for your cough. You will receive a call back if your flu swab was positive. As we discussed if you develop chest pain cannot eat or drink or have any other concerns please return to the emergency department. Otherwise please follow-up as needed with your primary care provider. HPI General Date/Time Provider Initiated Documentation: 11/09/24 19:23. HPI Narrative: MDM This is an overall very well-appearing initially tachycardic but normothermic 39-year-old female with cough sore throat head [id number] influenza COVID-negative. Patient was discharged with empiric trial of expectant outpatient management. Patient is nontoxic-appearing so doubt epiglottitis. Patient lipase is 80 but suspicion is low for bacterial tracheitis. No pain out of proportion to suggest necrotizing soft tissue infection. Uvula midline making my suspicion low for peritonsillar abscess. No significant posterior oropharynx erythema to suggest strep pharyngitis. Good range of motion in neck making my suspicion low for retropharyngeal abscess. I provided patient with benzonatate and symptomatic treatment for URI symptoms. We discussed that if she passed out or could not eat or drink she should return to the emergency department. Her tachycardia resolved. She was discharged with PCP follow-up as needed. HPI This is a 39-year-old female history of daily tobacco use right emergency department via private vehicle in setting of cough that began yesterday. Patient has a history of asthma. She denies chest and abdominal pain. He does have a sore throat. She has felt hot and cold. Denies dysuria frequency. No recent falls. No significant difficulty breathing. No routine ethanol. Exam General: Well-appearing in no acute distress speaking in complete sentences. Head: Normocephalic, atraumatic. Eye: Extraocular eye movements intact. No conjunctival injection. No scleral icterus. Ear, nose, mouth, throat: Grossly normal inspection. Normal voice, handling secretions normally. No significant posterior oropharynx erythema. Uvula midline. Neck: Trachea midline.Good range of motion in neck. Cardiovascular: Well-perfused distal extremities. Respiratory: Nonlabored respiration.Clear lungs bilaterally. Gastrointestinal: Nondistended abdomen. Musculoskeletal: No edema. Moving all 4 extremities spontaneously. Skin: Normal for age and race, grossly normal temperature and turgor. No acute rash. Neurologic: Alert and appropriate, no apparent acute deficits. Psychiatric: Mood and manner are appropriate. Grooming and personal hygiene are appropriate. Related Data Home Medications ?Medication ?Instructions ?Recorded ?Confirmed albuterol sulfate 90 mcg/actuation 1 - 2 puff inhalation Q4H PRN 02/05/14 11/09/24 aerosol inhaler budesonide-formoterol HFA 80 2 puff inhalation BID 08/05/15 11/09/24 mcg-4.5 mcg/actuation aerosol inhaler (Symbicort) levothyroxine 175 mcg tablet 175 mcg PO DAILY #90 tab-caps 12/16/17 11/09/24 omeprazole magnesium 20 mg 40 mg PO DAILY 07/14/18 11/09/24 tablet,delayed release (Prilosec OTC) dextroamphetamine-amphetamine 20 25 mg PO DAILY 05/06/20 11/09/24 mg tablet (Adderall) trazodone 50 mg tablet 50 mg PO QHS 05/13/21 11/09/24 citalopram 20 mg tablet 20 mg PO DAILY 01/13/24 11/09/24 citalopram 40 mg tablet 40 mg PO DAILY 01/13/24 11/09/24 trazodone 100 mg tablet 200 mg PO QHS 08/04/24 11/09/24 cyclobenzaprine 10 mg tablet 10 mg PO DAILY PRN 08/10/24 11/09/24 hydrochlorothiazide 25 mg tablet 25 mg PO DAILY 08/10/24 11/09/24 benzonatate 100 mg capsule 100 mg PO BID PRN #7 caps 11/09/24 cetirizine 10 mg tablet 10 mg PO DAILY PRN #7 tabs 11/09/24 naproxen 500 mg tablet 500 mg PO BID PRN #7 tabs 11/09/24 promethazine-DM 6.25 mg-15 mg/5 mL 5 ml PO Q6H PRN #118 mL 11/09/24 oral syrup Previous Rx's ?Medication ?Instructions ?Recorded levothyroxine 175 mcg tablet 175 mcg PO DAILY #90 tab-caps 12/16/17 benzonatate 100 mg capsule 100 mg PO BID PRN #7 caps 11/09/24 cetirizine 10 mg tablet 10 mg PO DAILY PRN #7 tabs 11/09/24 naproxen 500 mg tablet 500 mg PO BID PRN #7 tabs 11/09/24 promethazine-DM 6.25 mg-15 mg/5 mL 5 ml PO Q6H PRN #118 mL 11/09/24 oral syrup Allergies Allergy/AdvReac Type Severity Reaction Status Date / Time bupropion HCl (From Allergy Mild Skin Rash Verified 11/09/24 19:28 Wellbutrin) gabapentin Allergy Skin Rash Verified 11/09/24 19:28 Animal Dander Allergy Intermediate Runny Uncoded 11/09/24 19:28 nose, itchy eyes H1N1 vaccine Allergy Intermediate Hives Uncoded 02/07/25 19:28 General AIDAN: 4 Medical Decision Making Quality:SDOH Health Related Social Needs: No Data to Display PFSH All Active Problems (Updated 11/09/24 @ 19:25 by Doug Love MD) Viral URI with cough (Acute) Follow-up exam (Acute) Contusion of fourth toe, left (Acute) Mixed hearing loss of right ear (Acute) Recurrent otitis media (Acute) Thyroid with heterogeneous echotexture determined by ultrasound (Acute) Nonfunctional myringotomy tube (Acute) Sensation of fullness in left ear (Acute) Eustachian tube dysfunction (Acute) Conductive hearing loss (Acute) Retraction of tympanic membrane of both ears (Acute) TMJ (temporomandibular joint disorder) (Acute) Chronic otitis media (Acute) Morbid (severe) obesity due to excess calories (Acute) Dysfunction of both eustachian tubes (Acute) Tobacco use (Acute) Chronic maxillary sinusitis (Acute) Conductive hearing loss of both ears (Acute) Medical History Trichomonas infection treated 03/30/23 History of sexually transmitted disease Smoker Asthma Takes symbicort and flovent daily and albuterol PRN, managed by PCP Obesity, Class III, BMI 40-49.9 (morbid obesity) Depression takes celexa and seroquel, managed by PCP Surgical History Myringotomy tube status History of hysterectomy 2022, [facility] History of placement of ear tubes H/O tubal ligation 10/[address] [facility] [address] [place] section 2006, 2015 Family History Mother No problems noted. Father , cirrhosis of liver No problems noted. Brother No problems noted. Social History (Updated 08/06/24 @ 08:37 by Liset Winston NP) Smoking/Tobacco Use Status: Current every day Tobacco Type: cigarettes Tobacco: How many years used: 20 Quit status: has quit before Second Hand Exposure: No Smoking risk assessment performed?: Yes Alcohol Intake: current Alcohol Intake frequency: a few times a month Drug use: Daily Substance use type: marijuana Housing: other Sexually active: Yes What type of physical activity do you participate in: regular exercise Seatbelt use: always Helmet use: Yes Do you feel safe at home: Yes Do you feel safe in your relationship?: Yes Female Reproductive History Menstrual control method: permanent sterilization Menopause type: surgical History History 2 Para Hx # Term Pregnancies Multiple births Hx # Pregnancies Ectopic pregnancies AB induced Hx Number of Living Children AB spontaneous
[2024-11-09 19:25] VITALS: BP 118/70; PULSE 107; RESP 16; TEMP 37.1; O2SAT 96
[2024-11-09 19:29] VITALS: BP 118/70; PULSE 107; RESP 16; TEMP 37.1; O2SAT 96
[2024-11-09] MEDS: Acetaminophen 500 MG TAB 1000 MG PO (19:34)
[2024-11-09] MEDS: Benzonatate 100 MG CAP PO (19:34)
[2024-11-09 19:37] VITALS: PULSE 89
[2024-11-09 20:22] VITALS: BP 122/78; PULSE 89; RESP 16; TEMP 37.1; O2SAT 96
== END 2024-11-09 20:22 | disposition home or self-care (01) ==
PROVIDERS: Emergency Provider Emergency Medicine; PCP Internal Medicine
DX: R50.9 Fever, unspecified (principal); J06.9 Acute upper respiratory infection, unspecified; B97.89 Other viral agents as the cause of diseases classified elsewhere; F17.210 Nicotine dependence, cigarettes, uncomplicated
CPT/HCPCS: 99283

== ENCOUNTER 2025-02-16 16:51 | Emergency (ER) | payer MEDICAID, SELFPAY ==
[2025-02-16 16:54] VITALS: BP 128/73; PULSE 72; RESP 18; TEMP 36.4; O2SAT 98
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
[2025-02-16] MEDS: Acetaminophen 500 MG TAB 1000 MG PO (17:42)
== END 2025-02-16 18:26 | disposition home or self-care (01) ==
PROVIDERS: Emergency Provider Emergency Medicine; PCP Internal Medicine
DX: S09.8XXA Other specified injuries of head, initial encounter (principal); S30.0XXA Contusion of lower back and pelvis, initial encounter; S70.01XA Contusion of right hip, initial encounter; S16.1XXA Strain of muscle, fascia and tendon at neck level, initial encounter; I10 Essential (primary) hypertension; E66.813 Obesity, class 3; V43.52XA Car driver injured in collision with other type car in traffic accident, initial encounter
CPT/HCPCS: 99285; 70450; 72125; 72131; 72192; 99284

== ENCOUNTER 2025-05-20 18:28 | Emergency (ER) | payer MEDICAID, SELFPAY ==
[2025-05-20 18:32] VITALS: BP 118/78; PULSE 74; RESP 18; TEMP 36.8; O2SAT 95
[2025-05-20 18:39] VITALS: BP 118/75; PULSE 74; RESP 16; TEMP 36.8; O2SAT 95
--- NOTE | 2025-05-20 18:59 | W.ED.GENAD ---
Discharge Plan Disposition Patient Disposition: Home Condition: Stable Discharge Details Clinical Impression: Otitis externa, Migraine Primary Care Provider: Deanna Jones ED Provider: Anny Waite Home Meds and New Rx's Prescriptions: New ofloxacin 0.3 % drops 5 drp otic (ear) BID 7 Days Qty: 5 0RF No Action trazodone 50 mg tablet 50 mg PO QHS citalopram 20 mg tablet 20 mg PO DAILY citalopram 40 mg tablet 40 mg PO DAILY dextroamphetamine-amphetamine [Adderall] 20 mg tablet 25 mg PO DAILY albuterol sulfate 8.5 GM HFA aerosol inhaler 1 - 2 puff Inhalation Q4H PRN budesonide-formoterol [Symbicort] 10.2 GM HFA aerosol inhaler 2 puff Inhalation BID Patient Comments: Uncertain of dose levothyroxine 175 MCG tablet 175 mcg PO DAILY Qty: 90 1RF Rx Instructions: 1 tab by mouth daily cyclobenzaprine 10 mg tablet 10 mg PO DAILY PRN Patient Comments: TAKE ONE TABLET BY MOUTH EVERY DAY NEEDED FOR MUSCLE PAIN hydrochlorothiazide 25 mg tablet 25 mg PO DAILY Patient Comments: TAKE 1 TABLET BY MOUTH DAILY omeprazole magnesium [Prilosec OTC] 20 mg Tablet,Delayed Release (Dr/Ec) 40 mg PO DAILY trazodone 100 mg tablet 200 mg PO QHS Patient Comments: TAKE 2 TABLETS BY MOUTH EVERY NIGHT AT BEDTIME NEEDED FOR INSOMNIA cetirizine 10 mg tablet 10 mg PO DAILY PRNQty: 7 0RF Discharge Instructions Instructions: Outer Ear Infection ED Additional Instructions: You were seen in the emergency department today for evaluation of ear pain and migraine. Your exam was concerning for an outer ear infection known as otitis externa, commonly known as swimmer's ear. You were started on eardrops and you received medications for management of your migraine. It is safe to go home and continue all of your medications as prescribed. Please use the eardrops twice per day for the next 7 days, and follow-up with your outpatient providers for reassessment. Thank you for allowing us to be part of your care. HPI General Mode of arrival: ambulatory. Date/Time Provider Initiated Documentation: 05/20/25 18:34. Limitations to Documentation: no limitations. Information obtained by: patient and old records reviewed. HPI Narrative: This is a 39-year-old female with past medical history significant for eustachian tube disorder and recurrent otitis media status post myringotomy tube placement, history of hypothyroidism, migraines, presenting for evaluation of right ear pain and migraine. The patient reports that she went swimming 6 days ago, the day after that she did not have any drainage but 2 days later she started to drain clear and blood-tinged fluid from the ear. She reports that she also noted blood on the Q-tip when she cleaned her ears. She has not had any fevers or chills, but today developed a right sided headache that is characteristic of her migraines and gradual in onset. She reports that she has not taken any medication for management of her symptoms but typically uses Advil or Aleve. She has been eating and drinking typically, does not report any new numbness, tingling, or weakness in her body. No reported trauma. Related Data Home Medications ?Medication ?Instructions ?Recorded ?Confirmed albuterol sulfate 90 mcg/actuation 1 - 2 puff inhalation Q4H PRN 02/05/14 05/20/25 aerosol inhaler budesonide-formoterol HFA 80 2 puff inhalation BID 08/05/15 05/20/25 mcg-4.5 mcg/actuation aerosol inhaler (Symbicort) levothyroxine 175 mcg tablet 175 mcg PO DAILY #90 tab-caps 12/16/17 05/20/25 omeprazole magnesium 20 mg 40 mg PO DAILY 07/14/18 05/20/25 tablet,delayed release (Prilosec OTC) dextroamphetamine-amphetamine 20 25 mg PO DAILY 05/06/20 05/20/25 mg tablet (Adderall) trazodone 50 mg tablet 50 mg PO QHS 05/13/21 05/20/25 citalopram 20 mg tablet 20 mg PO DAILY 01/13/24 05/20/25 citalopram 40 mg tablet 40 mg PO DAILY 01/13/24 05/20/25 trazodone 100 mg tablet 200 mg PO QHS 08/04/24 05/20/25 cyclobenzaprine 10 mg tablet 10 mg PO DAILY PRN 08/10/24 05/20/25 hydrochlorothiazide 25 mg tablet 25 mg PO DAILY 08/10/24 05/20/25 cetirizine 10 mg tablet 10 mg PO DAILY PRN #7 tabs 11/09/24 05/20/25 ofloxacin 0.3 % ear drops 5 drp otic (ear) BID 7 days #5 mL 05/20/25 Previous Rx's ?Medication ?Instructions ?Recorded levothyroxine 175 mcg tablet 175 mcg PO DAILY #90 tab-caps 12/16/17 cetirizine 10 mg tablet 10 mg PO DAILY PRN #7 tabs 11/09/24 ofloxacin 0.3 % ear drops 5 drp otic (ear) BID 7 days #5 mL 05/20/25 Allergies Allergy/AdvReac Type Severity Reaction Status Date / Time bupropion HCl (From Allergy Mild Skin Rash Verified 05/20/25 18:38 Wellbutrin) gabapentin Allergy Skin Rash Verified 05/20/25 18:38 Animal Dander Allergy Intermediate Runny Uncoded 05/20/25 18:38 nose, itchy eyes H1N1 vaccine Allergy Intermediate Hives Uncoded 05/20/25 18:38 General Stated Complaint: EarProblem AIDAN: 4 Exam Narrative Exam Narrative: Gen: Awake and alert, in no apparent distress HEENT: Non-icteric sclera, photosensitivity present. The right external ear canal shows evidence of erythema and mild edema, myringotomy tube is visible without purulent drainage noted. Scarring of the TM appreciated. Neck: Supple Lungs: No apparent respiratory distress, normal respiratory effort. CV: Appears well perfused Abdomen: Non-distended MSK: Moves 4 extremities without apparent limitation in ROM Skin: Visualized skin without rashes, cyanosis. Neuro: Normal Gait, cranial nerves II through XII intact and symmetrical no obvious focal deficits in strength or sensation.. Speaks in full, clear sentences. Psych: Appropriate for situation. Course Vital Signs Vital signs: Vital Signs Temperature 36.8 C 05/20/25 18:32 Pulse 74 05/20/25 18:32 Respiratory Rate 18 05/20/25 18:32 Blood Pressure 118/78 05/20/25 18:32 Pulse Oximetry 95 05/20/25 18:32 Temperature 36.8 C 05/20/25 18:39 Temperature Source Oral 05/20/25 18:39 Pulse 74 05/20/25 18:39 Respiratory Rate 16 05/20/25 18:39 Blood Pressure 118/75 05/20/25 18:39 Blood Pressure Position Sitting 05/20/25 18:39 Pulse Oximetry 95 05/20/25 18:39 Oxygen Delivery Method Room Air 05/20/25 18:39 Pain Level 2 05/20/25 18:52 Medical Decision Making This is a 39-year-old female patient presenting for evaluation of ear pain and migraine. Differential includes but is not limited to otitis externa, I considered otitis media though this is less consistent with my history and physical examination. No evidence for mastoiditis on my examination and the patient is systemically well, making bacteremia and sepsis less likely. The patient's headache is characteristic of her baseline migraines, and I have a lower concern for severe headache syndrome such as intracranial hemorrhage or subarachnoid, aneurysm, or stroke given the reassuring examination. Considered other primary headache disorders including tension headache, cluster headache. I will provide the patient with ofloxacin drops for her otitis externa, and provide her with a migraine cocktail to include lactated Ringer's, Tylenol, Toradol, Reglan, and Benadryl. I do not see an indication at this time to proceed with advanced imaging or laboratory studies. - On reevaluation, the patient reports that her migraine feels significantly improved and she is desiring to go home and rest. I feel that this is reasonable and her neuro examination remains nonfocal. I sent a backup bottle of her eardrops to her pharmacy so that she does not run out before the full 7-day course is complete. At this time, the patient has had a full medical evaluation and is safe for discharge to home. They are hemodynamically stable, ambulatory, and tolerating PO. They are understanding of the follow-up plan and return precautions. They left our facility without incident. Anny Waite MD [facility], [facility] All Active Problems (Updated 05/20/25 @ 20:11 by Anny Waite MD) Migraine (Chronic) Otitis externa (Acute) Contusion of fourth toe, left (Acute) Mixed hearing loss of right ear (Acute) Recurrent otitis media (Acute) Thyroid with heterogeneous echotexture determined by ultrasound (Acute) Nonfunctional myringotomy tube (Acute) Sensation of fullness in left ear (Acute) Eustachian tube dysfunction (Acute) Conductive hearing loss (Acute) Retraction of tympanic membrane of both ears (Acute) TMJ (temporomandibular joint disorder) (Acute) Chronic otitis media (Acute) Morbid (severe) obesity due to excess calories (Acute) Dysfunction of both eustachian tubes (Acute) Tobacco use (Acute) Chronic maxillary sinusitis (Acute) Conductive hearing loss of both ears (Acute) Medical History Trichomonas infection treated 03/30/23 History of sexually transmitted disease Smoker Asthma Takes symbicort and flovent daily and albuterol PRN, managed by PCP Obesity, Class III, BMI 40-49.9 (morbid obesity) Depression takes celexa and seroquel, managed by PCP Surgical History Myringotomy tube status History of hysterectomy 2022, [facility] History of placement of ear tubes H/O tubal ligation 10/2018 [facility] Dr. Eugene section 2006, 2015 Family History Mother No problems noted. Father , cirrhosis of liver No problems noted. Brother No problems noted. Social History (Updated 08/06/24 @ 08:37 by Liset Winston NP) Smoking/Tobacco Use Status: Current every day Tobacco Type: cigarettes Tobacco: How many years used: 20 Quit status: has quit before Second Hand Exposure: No Smoking risk assessment performed?: Yes Alcohol Intake: current Alcohol Intake frequency: a few times a month Drug use: Daily Substance use type: marijuana Housing: other Sexually active: Yes What type of physical activity do you participate in: regular exercise Seatbelt use: always Helmet use: Yes Do you feel safe at home: Yes Do you feel safe in your relationship?: Yes Female Reproductive History Menstrual control method: permanent sterilization Menopause type: surgical History History 2 Para Hx # Term Pregnancies Multiple births Hx # Pregnancies Ectopic pregnancies AB induced Hx Number of Living Children AB spontaneous PAWSS Have you Been Recently Intoxicated or Drunk Within the Last 30 days?: No Have you Ever Experienced Previous Episodes of Alcohol Withdrawal?: No Have you ever Experienced Withdrawal Seizures?: No Have you ever Experienced Delirium Tremens(DT)s?: No Have you ever undergone Alcohol Rehabilitation Treatment (i.e, inpt ot outpatient treatment programs)?: No Have you ever Experienced Blackouts?: No Have you ever Combined Alcohol with other Downers within the last 90 days?: No Have you ever Combined Alcohol with any other Substance of Abuse during the last 90 days?: No Positive Blood Alcohol level on Presentation? [PCS.BAL]: No Evidence of Increased Autonomic Activity (i.e. HR>120, tremor, sweating, agitation, nausea)?: No Result: 0
[2025-05-20] MEDS: Lactated Ringers 1,000 ML 1000 ML IV (19:03)
[2025-05-20] MEDS: Ketorolac 15 MG/ML VIAL IVP (19:04)
[2025-05-20] MEDS: diphenhydrAMINE 50 MG/ML VIAL 25 MG IVP (19:04)
[2025-05-20] MEDS: Metoclopramide 10 MG/2 ML VIAL IVP (19:05)
[2025-05-20] MEDS: Acetaminophen 500 MG TAB 1000 MG PO (19:05)
[2025-05-20] MEDS: Ofloxacin 0.3% OTIC 5 ML BTL AD (19:53)
== END 2025-05-20 20:23 | disposition home or self-care (01) ==
PROVIDERS: Emergency Provider Emergency Medicine; PCP Internal Medicine
DX: G43.909 Migraine, unspecified, not intractable, without status migrainosus (principal); H60.91 Unspecified otitis externa, right ear
CPT/HCPCS: 96361; 96374; 96375; 99284; J1200; J1885; J2765

== ENCOUNTER 2025-07-27 21:10 | Emergency (ER) | payer MEDICAID, SELFPAY ==
[2025-07-27 21:15] VITALS: BP 128/81; PULSE 77; RESP 15; O2SAT 98
[2025-07-27 21:32] VITALS: BP 128/81; PULSE 77; RESP 15; O2SAT 98
--- NOTE | 2025-07-27 21:43 | W.ED.GENAD ---
Discharge Plan Disposition Patient Disposition: Home Condition: Good Discharge Details Clinical Impression: Acute pain of both ears Primary Care Provider: Deanna Jones ED Provider: Javon Stringer Home Meds and New Rx's Prescriptions: No Action trazodone 50 mg tablet 50 mg PO QHS citalopram 20 mg tablet 20 mg PO DAILY citalopram 40 mg tablet 40 mg PO DAILY dextroamphetamine-amphetamine [Adderall] 20 mg tablet 25 mg PO DAILY albuterol sulfate 8.5 GM HFA aerosol inhaler 1 - 2 puff Inhalation Q4H PRN budesonide-formoterol [Symbicort] 10.2 GM HFA aerosol inhaler 2 puff Inhalation BID Patient Comments: Uncertain of dose levothyroxine 175 MCG tablet 175 mcg PO DAILY Qty: 90 1RF Rx Instructions: 1 tab by mouth daily cyclobenzaprine 10 mg tablet 10 mg PO DAILY PRN Patient Comments: TAKE ONE TABLET BY MOUTH EVERY DAY NEEDED FOR MUSCLE PAIN hydrochlorothiazide 25 mg tablet 25 mg PO DAILY Patient Comments: TAKE 1 TABLET BY MOUTH DAILY omeprazole magnesium [Prilosec OTC] 20 mg Tablet,Delayed Release (Dr/Ec) 40 mg PO DAILY trazodone 100 mg tablet 200 mg PO QHS Patient Comments: TAKE 2 TABLETS BY MOUTH EVERY NIGHT AT BEDTIME NEEDED FOR INSOMNIA cetirizine 10 mg tablet 10 mg PO DAILY PRNQty: 7 0RF Discharge Instructions Instructions: Ear Pain ED Additional Instructions: At this time there is no sign evidence of significant severe infection in your ear canals are on your tympanic membrane. There may be some mild irritation causing your symptomatology. We will continue your ofloxacin 3% drops. Please take 3 to 5 drops in your ears bilaterally every 6-8 hours. However, it is critically important that you follow-up closely with your ENT specialist. Please contact them Tuesday morning for close follow-up. If you notice any worsening of your symptoms, or any new symptoms such as vomiting, diarrhea, fever, chills, shortness of breath, chest pain, numbness, weakness, or fainting , please return immediately to the emergency department for reevaluation. Please follow up with your primary care provider as soon as possible for reassessment and reevaluation. As always, it was a pleasure participating in your medical care today. Referrals: Deanna Jones [Primary Care Provider, Medicine] Yovani Zelaya DO [OSTEOPATHIC DOCTOR, ENT Surgical] HPI General Date/Time Provider Initiated Documentation: 07/27/25 21:22. HPI Narrative: This is a pleasant 40-year-old female with a past medical history of TMJ, eustachian tube dysfunction, subsequent right, right ear infections with bilateral myringotomy tubes chronically. She is seen by Dr. Zelaya's office and Ced Burdick for her ENT care. Patient states that for the last month she has been on ofloxacin drops, taking them daily since being prescribed in late May. She just completed the entire bottle about 4 or 5 days ago. For the last 2 days she has been noticing itching and intermittent sharp pain in her left and right ear, worse on the left than the right. She denies any drainage or discharge. She denies any fever or chills. She denies any headache. No other complaints at this time. Related Data Home Medications ?Medication ?Instructions ?Recorded ?Confirmed albuterol sulfate 90 mcg/actuation 1 - 2 puff inhalation Q4H PRN 02/05/14 07/27/25 aerosol inhaler budesonide-formoterol HFA 80 2 puff inhalation BID 08/05/15 07/27/25 mcg-4.5 mcg/actuation aerosol inhaler (Symbicort) levothyroxine 175 mcg tablet 175 mcg PO DAILY #90 tab-caps 12/16/17 07/27/25 omeprazole magnesium 20 mg 40 mg PO DAILY 07/14/18 07/27/25 tablet,delayed release (Prilosec OTC) dextroamphetamine-amphetamine 20 25 mg PO DAILY 05/06/20 07/27/25 mg tablet (Adderall) trazodone 50 mg tablet 50 mg PO QHS 05/13/21 07/27/25 citalopram 20 mg tablet 20 mg PO DAILY 01/13/24 07/27/25 citalopram 40 mg tablet 40 mg PO DAILY 01/13/24 07/27/25 trazodone 100 mg tablet 200 mg PO QHS 08/04/24 07/27/25 cyclobenzaprine 10 mg tablet 10 mg PO DAILY PRN 08/10/24 07/27/25 hydrochlorothiazide 25 mg tablet 25 mg PO DAILY 08/10/24 07/27/25 cetirizine 10 mg tablet 10 mg PO DAILY PRN #7 tabs 11/09/24 07/27/25 Previous Rx's ?Medication ?Instructions ?Recorded levothyroxine 175 mcg tablet 175 mcg PO DAILY #90 tab-caps 12/16/17 cetirizine 10 mg tablet 10 mg PO DAILY PRN #7 tabs 11/09/24 Allergies Allergy/AdvReac Type Severity Reaction Status Date / Time bupropion HCl (From Allergy Mild Skin Rash Verified 07/27/25 21:19 Wellbutrin) gabapentin Allergy Skin Rash Verified 07/27/25 21:19 Animal Dander Allergy Intermediate Runny Uncoded 07/27/25 21:19 nose, itchy eyes H1N1 vaccine Allergy Intermediate Hives Uncoded 07/27/25 21:19 General Stated Complaint: EarProblem AIDAN: 3 Exam Narrative Exam Narrative: 1.Const: Well-nourished, Well-developed, appearing stated age 2.Eyes: PERRL, no conjunctival injection, and symmetrical lids. 3.ENT: Atraumatic external nose and ears. Moist MM. Neck: Symmetric, trachea midline, No thyromegaly. Left tympanic membrane demonstrates an in-place myringotomy tube, no drainage, no erythema, some scarring on the inferior components of the tympanic membrane, but no significant or large fluid collection. No edema of the external otic canal. Right tympanic membrane demonstrates chronic scarring, myringotomy tube, then there appears to be a green component on the left posterior inferior aspect of the tympanic membrane. It does not appear to necessarily be a reflection of the myringotomy tube which is also green, but rather potentially either an atypical scarring, allergic, or a very minimal posterior ear fluid collection. That being said there is no evidence of bulging, erythema or other abnormality in the canal or around the tympanic membrane. 4.CVS: +S1/S2, Peripheral pulses 2+ and equal in all extremities. Brisk capillary refill in all extremities. 5.RESP: Unlabored respiratory effort. Clear to auscultation bilaterally. No wheezes rales or rhonchi 6.GI: Soft, Nontender/Nondistended, No hepatosplenomegaly. No guarding or rebound. 7.MSK: Normocephalic/Atraumatic, Extremities w/o deformity or ttp No cyanosis or clubbing, Normal movement of all extremities 8.Skin: Warm, Dry. No rashes or lesions. 9.Neuro: screedman II-XII grossly intact. Sensation grossly intact, no focal neurologic deficits. 10.Psych: (AAO) x3. Appropriate mood and affect Course Vital Signs Vital signs: Vital Signs Pulse 77 07/27/25 21:15 Respiratory Rate 15 07/27/25 21:15 Blood Pressure 128/81 07/27/25 21:15 Pulse Oximetry 98 07/27/25 21:15 Pulse 77 07/27/25 21:32 Respiratory Rate 15 07/27/25 21:32 Blood Pressure 128/81 07/27/25 21:32 Blood Pressure Position Sitting 07/27/25 21:32 Pulse Oximetry 98 07/27/25 21:32 Oxygen Delivery Method Room Air 07/27/25: Oxygen Flow Rate 0 07/27/25 21:32 Medical Decision Making This is a pleasant 40-year-old female with a past medical history of TMJ, eustachian tube dysfunction, subsequent right, right ear infections with bilateral myringotomy tubes chronically. She is seen by Dr. Zelaya's office and Ced Burdick for her ENT care. Patient states that for the last month she has been on ofloxacin drops, taking them daily since being prescribed in late May. She just completed the entire bottle about 4 or 5 days ago. For the last 2 days she has been noticing itching and intermittent sharp pain in her left and right ear, worse on the left than the right. She denies any drainage or discharge. She denies any fever or chills. She denies any headache. No other complaints at this time. Left tympanic membrane demonstrates an in-place myringotomy tube, no drainage, no erythema, some scarring on the inferior components of the tympanic membrane, but no significant or large fluid collection. No edema of the external otic canal. Right tympanic membrane demonstrates chronic scarring, myringotomy tube, then there appears to be a green component on the left posterior inferior aspect of the tympanic membrane. It does not appear to necessarily be a reflection of the myringotomy tube which is also green, but rather potentially either an atypical scarring, allergic, or a very minimal posterior ear fluid collection. That being said there is no evidence of bulging, erythema or other abnormality in the canal or around the tympanic membrane. At this time the exam does not show any evidence to suggest significant otitis media or otitis externa. However clinically the patient states that this is how her infections usually start with the symptoms. I do not see an indication for oral antibiotics, however out of an abundance of caution we can restart her on the ofloxacin drops as it temporarily treatment until she is able to follow-up with Zelaya's office next week. Patient was given ofloxacin drops here. Recommend 2 to 3 drops per ear every 6-8 hours. Patient will contact Zelaya's office Tuesday morning. Otherwise no evidence of mastoiditis or other concerning abnormality. Discussed red flags for return. I have extensively reviewed the treatment plan and discharge instructions with the patient. I have addressed all patient concerns at this time. The patient was made aware of what symptoms to monitor for that would warrant a return to the emergency department. Discussed the plan with the patient, they demonstrate verbal understanding and agreement with our assessment and plan at this time. The documentation in this chart was dictated using [place]the [employer] dictation software. Please excuse any dictation errors. PFSH All Active Problems (Updated 07/27/25 @ 21:45 by Javon Stringer DO) Acute pain of both ears (Acute) Otorrhea, right ear (Acute) Contusion of fourth toe, left (Acute) Mixed hearing loss of right ear (Acute) Recurrent otitis media (Acute) Thyroid with heterogeneous echotexture determined by ultrasound (Acute) Nonfunctional myringotomy tube (Acute) Sensation of fullness in left ear (Acute) Eustachian tube dysfunction (Acute) Conductive hearing loss (Acute) Retraction of tympanic membrane of both ears (Acute) TMJ (temporomandibular joint disorder) (Acute) Chronic otitis media (Acute) Morbid (severe) obesity due to excess calories (Acute) Dysfunction of both eustachian tubes (Acute) Tobacco use (Acute) Chronic maxillary sinusitis (Acute) Conductive hearing loss of both ears (Acute) Medical History Trichomonas infection treated 03/30/23 History of sexually transmitted disease Smoker Asthma Takes symbicort and flovent daily and albuterol PRN, managed by PCP Obesity, Class III, BMI 40-49.9 (morbid obesity) Depression takes celexa and seroquel, managed by PCP Surgical History Myringotomy tube status History of hysterectomy 2022, [facility] History of placement of ear tubes H/O tubal ligation 10/2018 [facility] Dr. Eugene section 2006, 2015 Family History Mother No problems noted. Father , cirrhosis of liver No problems noted. Brother No problems noted. Social History (Updated 08/06/24 @ 08:37 by Liset Winston NP) Smoking/Tobacco Use Status: Current every day Tobacco Type: cigarettes Tobacco: How many years used: 20 Quit status: has quit before Second Hand Exposure: No Smoking risk assessment performed?: Yes Alcohol Intake: current Alcohol Intake frequency: a few times a month Drug use: Daily Substance use type: marijuana Housing: other Sexually active: Yes What type of physical activity do you participate in: regular exercise Seatbelt use: always Helmet use: Yes Do you feel safe at home: Yes Do you feel safe in your relationship?: Yes Female Reproductive History Menstrual control method: permanent sterilization Menopause type: surgical History History 2 Para Hx # Term Pregnancies Multiple births Hx # Pregnancies Ectopic pregnancies AB induced Hx Number of Living Children AB spontaneous
[2025-07-27] MEDS: Ofloxacin 0.3% OTIC 5 ML BTL AD (22:14)
== END 2025-07-27 22:19 | disposition home or self-care (01) ==
PROVIDERS: Emergency Provider Student in an Organized Health Care Education/Training Program; PCP Internal Medicine
DX: H92.03 Otalgia, bilateral (principal); F17.210 Nicotine dependence, cigarettes, uncomplicated; Z86.69 Personal history of other diseases of the nervous system and sense organs
CPT/HCPCS: 99283